=== PATIENT | female | born 1990 | race Caucasian/White ===

== ENCOUNTER 2017-01-23 00:18 | Emergency (ER) | payer MEDICAID ==
[~2017-01-23] VITALS: Ht 157.5 cm; Wt 45.4 kg
[~2017-01-23 00:18] MED LIST: ACHD5005 PO; ALBU8.5H4 IH; AMOX500C2 PO; BCP; BCP PO; CEFD300C3 PO; CEPH500C PO; CETI10TA17; CLIN300C3 PO; CLON0.5T60 PO; CLON1TAB3; CODE-54 PO; CPH250CIP PO; CYCL10TA45 PO; DCS100C PO; DICL500C PO; DIPH50CA33 PO; DOXY100C2 PO; ESCI20TA38; FAMO-119 PO; FRS325T PO; GUAI120L29 PO; HYDR-3714 PO; HYDR1CAP2 PO; Hydrocodone Bit/Acetaminophen PO; IBP600T1 PO; Ibuprofen PO; LD5O35 EXT; METH10TA12; METH10TA3 PO; METH20TA PO; METH5TAB4 PO; METR500T PO; MIRT30TA6 PO; NAPR-243 PO; NITR-65 PO; NITR100C3 PO; OCP; OMEP-10 PO; OMEP20TA2 PO; ONDA-42 PO; ONDA8TAB6 PO; ONDAN4ODT PO; OSLT75C PO; PHEN200T27 PO; PNV1CAPS13 PO; PRD20T PO; PRDM473B PO; PREN-115 PO; PREN1TAB4 PO; PRM25T PO; PROM12.59 PO; Simethicone PO; TRAM150C3 PO; TRAM50TA2 PO; TRM50T PO; hydroxyzine; lamictal; metoprolol; risperdal
--- OUTSIDE RECORDS SUMMARY | 2017-01-23 00:28 | XMS REPORT | Continuity of Care Document ---
Author Author [facility] Address Unknown Phone Unavailable Allergies Active Description Code Type Severity Reaction Onset Reported/Identified Relationship to Patient Clinical Status Yes Sulfa (Sulfonamide Antibiotics) [id number] Drug Allergy Unknown N/A 06/06/2008 Yes Sulfa (Sulfonamide Antibiotics) Drug Allergy N/A N/A 02/10/2014 Medications Problems Date Dx Coded Attending Type Code Diagnosis Diagnosed By 06/11/2010 Ot 569.3 06/11/2010 Ot 578.9 07/07/2010 Ot 455.0 07/07/2010 Ot 564.00 07/07/2010 Ot 569.3 08/31/2010 Ot 575.8 09/24/2010 Ot 923.10 09/24/2010 Ot 959.3 09/24/2010 Ot E000.8 09/24/2010 Ot E849.0 09/24/2010 Ot E888.8 10/15/2010 Ot 625.9 10/15/2010 Ot 648.93 12/19/2010 Ot 643.03 01/18/2011 Ot 640.93 02/08/2011 Ot 625.9 02/08/2011 Ot 646.83 02/18/2011 Ot 599.0 02/18/2011 Ot 646.63 03/05/2011 Ot 648.93 03/05/2011 Ot 789.00 04/08/2011 Ot 648.93 04/08/2011 Ot 959.19 04/08/2011 Ot E000.8 04/08/2011 Ot E849.6 04/08/2011 Ot E917.9 04/08/2011 Ot 648.73 04/08/2011 Ot 648.93 04/08/2011 Ot 724.2 04/08/2011 Ot 924.01 04/08/2011 Ot 959.6 04/08/2011 Ot E000.8 04/08/2011 Ot E849.6 04/08/2011 Ot E917.9 04/11/2011 Ot 844.9 04/11/2011 Ot 959.7 04/11/2011 Ot E000.8 04/11/2011 Ot E849.0 04/11/2011 Ot E927.0 04/21/2011 Ot 599.0 04/21/2011 Ot 646.63 05/07/2011 Ot 644.03 05/20/2011 Ot 644.03 06/08/2011 Ot 650 06/08/2011 Ot V27.0 07/22/2011 Ot 599.0 08/03/2011 Ot 841.9 08/03/2011 Ot 842.00 08/03/2011 Ot 923.10 08/03/2011 Ot 923.21 08/03/2011 Ot 959.3 08/03/2011 Ot E000.8 08/03/2011 Ot E849.0 08/03/2011 Ot E885.9 01/22/2012 Ot 487.1 01/22/2012 Ot 780.60 05/30/2012 Ot 923.11 05/30/2012 Ot 959.3 05/30/2012 Ot E000.8 05/30/2012 Ot E849.0 05/30/2012 Ot E888.9 08/13/2012 Ot 787.02 08/13/2012 Ot 789.00 08/18/2012 Ot 616.10 08/18/2012 Ot 620.2 08/18/2012 Ot 789.03 01/27/2013 Ot 784.0 HEADACHE 02/10/2013 Ot 466.0 ACUTE BRONCHITIS 02/10/2013 Ot 648.93 OTH CURR COND-ANTEPARTUM 02/10/2013 Ot 786.2 COUGH 03/02/2013 Ot 648.93 OTH CURR COND-ANTEPARTUM 03/02/2013 Ot 682.6 CELLULITIS OF LEG 03/02/2013 Ot 704.8 HAIR DISEASES NEC 03/03/2013 Ot 599.0 URIN TRACT INFECTION NOS 03/03/2013 Ot 646.63 INFECTION-ANTEPARTUM 03/03/2013 Ot 646.83 PREG COMPL NEC-ANTEPART 03/03/2013 Ot 682.6 CELLULITIS OF LEG 03/03/2013 Ot 704.8 HAIR DISEASES NEC 03/13/2013 Ot 355.0 SCIATIC NERVE LESION 03/13/2013 Ot 648.73 BONE DISORDER-ANTEPARTUM 03/13/2013 Ot 719.45 JOINT PAIN-PELVIS 03/13/2013 Ot 720.2 SACROILIITIS NEC 03/26/2013 PETE CHACKO DO Ot 784.0 HEADACHE 05/20/2013 MAVERICK MORELAND DO Ot 388.70 OTALGIA NOS 05/20/2013 MAVERICK MORELAND DO Ot 646.83 PREG COMPL NEC-ANTEPART 05/20/2013 OTILIA CANTU, PHI Amador Ot 382.9 OTITIS MEDIA NOS 05/20/2013 PHI BINGHAM MD Ot 388.70 OTALGIA NOS 05/20/2013 OTILIA CANTU, PHI Amador Ot 648.93 OTH CURR COND-ANTEPARTUM 06/15/2013 MAVERICK MORELAND DO Ot 644.03 THRT KATHY LABOR-ANTEPART 06/15/2013 MAVERICK MORELAND DO Ot 655.73 DECR MOVEMNT ANTEPARTUM CONDITION 06/15/2013 MAVERICK MORELAND DO Ot E000.8 OTHER EXTERNAL CAUSE STATUS 06/15/2013 MAVERICK MORELAND DO Ot E888.9 FALL NOS 06/28/2013 MAVERICK MORELAND DO Ot 644.03 THRT KATHY LABOR-ANTEPART 07/07/2013 LATA CANTU, VIRGIE Childers Ot 490 BRONCHITIS NOS 07/07/2013 VIRGIE GUIDO MD Ot 646.83 PREG COMPL NEC-ANTEPART 07/12/2013 TENNILLE MCFADDEN GRINDER OPERATOR EXTERNAL TOOL Ot 646.83 PREG COMPL NEC-ANTEPART 07/12/2013 TENNILLE MCFADDEN GRINDER OPERATOR EXTERNAL TOOL Ot 649.03 TOBACCO USE DISOR COMP PREG/CHILDBIRTH/P 07/12/2013 TENNILLE MCFADDEN GRINDER OPERATOR EXTERNAL TOOL Ot 787.01 NAUSEA WITH VOMITING 07/12/2013 TENNILLE MCFADDEN GRINDER OPERATOR EXTERNAL TOOL Ot 787.91 DIARRHEA 07/21/2013 MAVERICK MORELAND DO Ot 644.03 THRT KATHY LABOR-ANTEPART 08/16/2013 MAVERICK MORELAND DO Ot 623.5 NONINFECT VAG LEUKORRHEA 08/16/2013 MAVERICK MORELAND DO Ot 654.73 ABNORM VAGINA-ANTEPARTUM 08/19/2013 MAVERICK MORELAND DO Ot 648.73 BONE DISORDER-ANTEPARTUM 08/19/2013 MAVERICK MORELAND DO Ot 724.2 LUMBAGO 08/30/2013 MAVERICK MORELAND DO Ot 644.13 THREAT LABOR NEC-ANTEPAR 09/03/2013 MAVERICK MORELAND DO Ot 287.5 THROMBOCYTOPENIA NOS 09/03/2013 MAVERICK MORELAND DO Ot 649.01 TOBACCO USE DISORDER COMP PREG/CHILDBIRT 09/03/2013 MAVERICK MORELAND DO Ot 649.31 COAGULATION DEFECTS COMP PREG/CHILDBIRTH 09/03/2013 MAVERICK MORELAND DO Ot V04.81 ND FOR PROPHYLACTIC VACCIN AND INOCULATI 09/03/2013 MAVERICK MORELAND DO Ot V27.0 DELIVER-SINGLE LIVEBORN 12/09/2013 RICCO PETE K Ot 842.00 12/09/2013 RICCO PETE K Ot 923.20 12/09/2013 RICCO PETE Danie Ot 959.3 12/09/2013 RICCO PETE Danie Ot E000.8 12/09/2013 RICCO PETE Danie Ot E849.0 12/09/2013 RICCO PETE Helton Ot E885.9 02/10/2014 DEREK HERRERA MD 309.81 AN PTSD 02/10/2014 DEREK HERRERA MD 314.01 ADHD COMBINED 02/10/2014 ARMANDO MEJIA APRNA J 309.81 AN PTSD 02/10/2014 ARMANDO MEJIA APRNA J 314.01 ADHD COMBINED 02/10/2014 ARMANDO MEJIA APRNA J 309.81 AN PTSD 02/10/2014 ARMANDO MEJIA APRNA J 314.01 ADHD COMBINED 02/10/2014 ROBERTO FLOREZ AZALIA J 309.81 AN PTSD 02/10/2014 ROBERTO FLOREZ AZALIA J 314.01 ADHD COMBINED 02/10/2014 ARMANDO MEJIA APRNA J 309.81 AN PTSD 02/10/2014 ARMANDO MEJIA APRNA J 314.01 ADHD COMBINED 02/10/2014 ROBERTO FLOREZ AZALIA J 309.81 AN PTSD 02/10/2014 ROBERTO FLOREZ AZALIA J 314.01 ADHD COMBINED 02/10/2014 CHRISTIANO MEJIA APRNINDA J 309.81 AN PTSD 02/10/2014 ROBERTO GRINDER OPERATOR EXTERNAL TOOL, AZALIA J 314.01 ADHD COMBINED 02/10/2014 AZALIA MEJIA APRN 309.81 AN PTSD 02/10/2014 AZALIA MEJIA APRN 314.01 ADHD COMBINED 02/10/2014 ARIANE JENKINS PHD 309.81 AN PTSD 02/10/2014 ARIANE JENKINS PHD 314.01 ADHD COMBINED 02/10/2014 AZALIA MEJIA APRN 309.81 AN PTSD 02/10/2014 AZALIA MEJIA APRN 314.01 ADHD COMBINED 02/10/2014 ARIANE JENKINS PHD 309.81 AN PTSD 02/10/2014 ARIANE JENKINS PHD 314.01 ADHD COMBINED 02/16/2014 TENNILLE MCFADDEN APRN Ot 490 02/16/2014 TENNILLE MCFADDEN APRN Ot 786.2 03/20/2014 RICCOMARIA ALEJANDRA Lepe DOA K Ot 381.4 03/20/2014 RICCO MARIA ALEJANDRAA K Ot 462 03/20/2014 RICCO MARIA ALEJANDRAA K Ot 465.9 03/20/2014 MARIA ALEJANDRA CHACKO DOA K Ot 599.0 06/24/2014 DENVER HASTINGS Ot 466.0 06/24/2014 DENVER HASTINGS Ot 648.93 06/24/2014 DENVER HASTINGS Ot 786.2 08/10/2014 AZALIA MEJIA APRN 381.01 ACUTE SEROUS OTITIS MEDIA 08/10/2014 AZALIA MEJIA APRN 381.01 ACUTE SEROUS OTITIS MEDIA 08/10/2014 AZALIA MEJIA APRN 381.01 ACUTE SEROUS OTITIS MEDIA 08/10/2014 ARIANE JENKINS PHD 381.01 ACUTE SEROUS OTITIS MEDIA 08/10/2014 AZALIA MEJIA APRN 381.01 ACUTE SEROUS OTITIS MEDIA 08/10/2014 ARIANE JENKINS PHD 381.01 ACUTE SEROUS OTITIS MEDIA 10/10/2014 Ot 789.00 10/10/2014 Ot 789.00 10/10/2014 Ot 575.8 10/10/2014 Ot V72.63 10/10/2014 Ot V72.81 10/11/2014 MAVERICK MORELAND DO Ot 644.03 10/16/2014 MAVERICK MORELAND DO Ot 661.31 10/16/2014 MAVERICK MORELAND DO Ot V04.81 10/16/2014 MAVERICK MORELAND DO Ot V06.1 10/16/2014 MAVERICK MORELAND DO Ot V06.4 10/16/2014 MAVERICK MORELAND DO Ot V27.0 12/09/2014 Ot 789.00 12/09/2014 Ot 789.00 12/09/2014 Ot 575.8 12/09/2014 Ot V72.63 12/09/2014 Ot V72.81 12/09/2014 DENVER HASTINGS Ot 723.1 CERVICALGIA 12/22/2014 MAVERICK MORELAND DO Ot 618.4 UTERVAGINAL PROLAPSE NOS 12/22/2014 MAVERICK MORELAND DO Ot 618.89 OTHER SPECIFIED GENITAL PROLAPSE 12/22/2014 MAVERICK MORELAND DO Ot 620.8 NONINFL DIS OVA/ADNX NEC 12/22/2014 MAVERICK MORELAND DO Ot 998.11 HEMOR COMPLIC A PROCEDURE 12/30/2014 MAVERICK MORELAND DO Ot 618.01 12/30/2014 MAVERICK MORELAND DO Ot 618.89 12/30/2014 MAVERICK MORELAND DO Ot V72.63 12/30/2014 MAVERICK MORELAND DO Ot V74.8 01/27/2015 AZALIA MEJIA APRN 308.3 AN ACUTE STRESS DISORDER 01/27/2015 ARIANE JENKINS PHD 308.3 AN ACUTE STRESS DISORDER 01/27/2015 AZALIA MEJIA APRN 308.3 AN ACUTE STRESS DISORDER 01/27/2015 ARIANE JENKINS PHD 308.3 AN ACUTE STRESS DISORDER 01/27/2015 Ot 338.28 OTHER CHRONIC POSTOPERATIVE PAIN 01/27/2015 Ot 623.8 NONINFLAM DIS VAGINA NEC 02/09/2015 AZALIA MEJIA APRN 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 02/09/2015 AZALIA MEJIA APRN 300.02 AN GEN ANXIETY 02/09/2015 ARIANE JENKINS PHD 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 02/09/2015 ARIANE JENKINS PHD 300.02 AN GEN ANXIETY 02/09/2015 AZALIA MEJIA APRN 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 02/09/2015 AZALIA MEJIA APRN 300.02 AN GEN ANXIETY 02/09/2015 ALICE PHD, ARIANE Childers 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 02/09/2015 ALICE WALKER, ARIANE Childers 300.02 AN GEN ANXIETY 06/04/2015 MORELAND DO, MAVERICK C Ot 618.01 06/04/2015 MORELAND DO, MAVERICK C Ot 618.89 06/04/2015 MORELAND DO, MAVERICK C Ot V72.63 06/04/2015 MORELAND DO, MAVERICK C Ot V74.8 06/04/2015 PETE CHACKO DO Ot 682.5 CELLULITIS OF BUTTOCK 06/04/2015 PETE CHACKO DO Ot V12.04 PERSONAL HIST OF METHICILLIN RESISTANT S 06/08/2015 FORTINO CANTU, JACOBO Helton Ot 041.12 METHICILLIN RESISTANT STAPHYLOCOCCUS AUR 06/08/2015 FORTINO CANTU, JACOBO Helton Ot 682.5 CELLULITIS OF BUTTOCK 06/10/2015 FORTINO CANTU, JACOBO Helton Ot 041.12 06/10/2015 FORTINO CANTU, JACOBO Helton Ot 682.5 06/23/2015 JACOBO FREITAS MD Ot 041.12 06/23/2015 JACOBO FREITAS MD Ot 682.5 11/11/2015 MORELAND DO MAVERICK C Ot 618.01 11/11/2015 MORELAND DO, MAVERICK C Ot 618.89 11/11/2015 MORELAND DO MAVERICK C Ot V72.63 11/11/2015 MORELAND DO, MAVERICK C Ot V74.8 11/11/2015 TENNILLE MCFADDEN GRINDER OPERATOR EXTERNAL TOOL Ot S99.922A UNSPECIFIED INJURY OF LEFT FOOT, INITIAL 11/11/2015 TENNILLE MCFADDEN GRINDER OPERATOR EXTERNAL TOOL Ot Z53.21 PROC/TRTMT NOT CRD OUT D/T PT LV BEF SEE 11/11/2015 MORELAND DO, MAVERICK C Ot 618.01 11/11/2015 MORELAND DO, MAVERICK C Ot 618.89 11/11/2015 MORELAND DO, MAVERICK C Ot V72.63 11/11/2015 MORELAND DO, MAVERICK C Ot V74.8 06/28/2016 MORELAND DO, MAVERICK C Ot 618.01 CYSTOCELE, MIDLINE 06/28/2016 MAVERICK MORELAND DO Ot 618.89 OTHER SPECIFIED GENITAL PROLAPSE 06/28/2016 MAVERICK MORELAND DO Ot V72.63 PRE-PROCEDURAL LABORATORY EXAMINATION 06/28/2016 MAVERICK MORELAND DO Ot V74.8 SCREEN-BACTERIAL DIS NEC 06/28/2016 ADAN HEAD MD, Ot O92.79 OTHER DISORDERS OF 06/28/2016 ADAN HEAD MD Ot R10.84 GENERALIZED ABDOMINAL PAIN 06/28/2016 ADAN HEAD MD, Ot Z79.899 OTHER INSULATION POWER UNIT TENDER (CURRENT) DRUG THERAPY 06/28/2016 ADAN HEAD MD, Ot Z90.710 ACQUIRED ABSENCE OF BOTH CERVIX AND UTER 06/30/2016 ADAN HEAD MD Ot O92.79 OTHER DISORDERS OF 06/30/2016 ADAN HEAD MD, Ot R10.84 GENERALIZED ABDOMINAL PAIN 06/30/2016 ADAN HEAD MD, Ot Z79.899 OTHER INSULATION POWER UNIT TENDER (CURRENT) DRUG THERAPY 06/30/2016 ADAN HEAD MD Ot Z90.710 ACQUIRED ABSENCE OF BOTH CERVIX AND UTER 07/19/2016 ADAN HEAD MD Ot O92.79 OTHER DISORDERS OF 07/19/2016 ADAN HEAD MD Ot R10.84 GENERALIZED ABDOMINAL PAIN 07/19/2016 ADAN HEAD MD Ot Z79.899 OTHER INSULATION POWER UNIT TENDER (CURRENT) DRUG THERAPY 07/19/2016 ADAN HEAD MD Ot Z90.710 ACQUIRED ABSENCE OF BOTH CERVIX AND UTER Procedures Code Description Performed By Performed On 73.4 MEDICAL INDUCTION LABOR 09/01/2013 73.59 MANUAL ASSIST DELIV NEC 09/01/2013 43411 PSYTX PT&/FAMILY 45 MINUTES 03/09/2015 43862 PSYTX PT&/FAMILY 45 MINUTES 03/23/2015 Results Test Result Range Complete urinalysis with reflex to culture - 06/28/16 01:14 Urine color determination YELLOW NRG Urine clarity determination CLEAR NRG Urine pH measurement by test strip 8 5- 9 Specific gravity of urine by test strip 1.015 1.016-1.022 Urine protein assay by test strip, semi-quantitative NEGATIVE NEGATIVE Urine glucose detection by automated test strip NEGATIVE NEGATIVE Erythrocytes detection in urine sediment by light microscopy NEGATIVE NEGATIVE Urine ketones detection by automated test strip NEGATIVE NEGATIVE Urine nitrite detection by test strip NEGATIVE NEGATIVE Urine total bilirubin detection by test strip NEGATIVE NEGATIVE Urine urobilinogen measurement by automated test strip (mass/volume) NORMAL NORMAL Urine leukocyte esterase detection by dipstick 1+ NEGATIVE Automated urine sediment erythrocyte count by microscopy (number/high power field) NONE NRG Automated urine sediment leukocyte count by microscopy (number/high power field ) [HPF] NRG Bacteria detection in urine sediment by light microscopy TRACE NRG Squamous epithelial cells detection in urine sediment by light microscopy 2-5 NRG Crystals detection in urine sediment by light microscopy NONE NRG Casts detection in urine sediment by light microscopy NONE NRG Mucus detection in urine sediment by light microscopy MODERATE NRG Complete urinalysis with reflex to culture NO NRG Complete blood count (CBC) with automated white blood cell (WBC) differential - 06/28/16 01:19 Blood leukocytes automated count (number/volume) 10.5 10*3/ uL 4.3-11.0 Blood erythrocytes automated count (number/volume) 4.27 10*6 /uL 4.35-5.85 Venous blood hemoglobin measurement (mass/volume) 12.8 g/dL 11.5-16.0 Blood hematocrit (volume fraction) 39 % 35-52 Automated erythrocyte mean corpuscular volume 91 [foz_us] 80-99 Automated erythrocyte mean corpuscular hemoglobin (mass per erythrocyte) 30 pg 25-34 Automated erythrocyte mean corpuscular hemoglobin concentration measurement ( mass/volume) 33 g/dL 32-36 Automated erythrocyte distribution width ratio 12.0 % 10.0-14.5 Automated blood platelet count (count/volume) 216 10*3/uL 130-400 Automated blood platelet mean volume measurement 11.2 [foz_ us] 7.4-10.4 Automated blood neutrophils/100 leukocytes 59 % 42-75 Automated blood lymphocytes/100 leukocytes 31 % 12-44 Blood monocytes/100 leukocytes 6 % 0-12 Automated blood eosinophils/100 leukocytes 4 % 0-10 Automated blood basophils/100 leukocytes 0 % 0-10 Blood neutrophils automated count (number/volume) 6.2 10*3 1.8-7.8 Blood lymphocytes automated count (number/volume) 3.3 10*3 1.0-4.0 Blood monocytes automated count (number/volume) 0.7 10*3 0.0-1.0 Automated eosinophil count 0.4 10*3/uL 0.0-0.3 Automated blood basophil count (count/volume) 0.0 10*3/uL 0.0-0.1 Comprehensive metabolic panel - 06/28/16 01:19 Serum or plasma sodium measurement (moles/volume) 140 mmol/ L 135-145 Serum or plasma potassium measurement (moles/volume) 3.9 mmol/L 3.6-5.0 Serum or plasma chloride measurement (moles/volume) 106 mmol /L 98-107 Carbon dioxide 26 mmol/L 21-32 Serum or plasma anion gap determination (moles/volume) 8 mmol/L 5-14 Serum or plasma urea nitrogen measurement (mass/volume) 17 mg/dL 7-18 Serum or plasma creatinine measurement (mass/volume) 0.74 mg /dL 0.60-1.30 Serum or plasma urea nitrogen/creatinine mass ratio 23 NRG Serum or plasma creatinine measurement with calculation of estimated glomerular filtration rate > NRG Serum or plasma glucose measurement (mass/volume) 92 mg/dL 70-105 Serum or plasma calcium measurement (mass/volume) 9.7 mg/dL 8.5-10.1 Serum or plasma total bilirubin measurement (mass/volume) 0.2 mg/dL 0.1-1.0 Serum or plasma alkaline phosphatase measurement (enzymatic activity/volume) 58 U/L 40-136 Serum or plasma aspartate aminotransferase measurement (enzymatic activity/ volume) 23 U/L 5-34 Serum or plasma alanine aminotransferase measurement (enzymatic activity/volume ) 13 U/L 0-55 Serum or plasma protein measurement (mass/volume) 7.3 g/dL 6.4-8.2 Serum or plasma albumin measurement (mass/volume) 4.8 g/dL 3.2-4.5 Encounters ACCT No. Visit Date/Time Discharge Status Pt. Type Provider Facility Loc./Unit Complaint [id number] 03/23/2015 08:50:00 03/23/2015 23: 59:[address] [facility] Outpatient ARIANE JENKINS PHD [id number] 03/09/2015 08:47:00 03/09/2015 23: 59:59 [facility] Outpatient ARIANE JENKINS PHD [id number] 03/03/2015 08:55:00 03/03/2015 23: 59:59 [facility] Outpatient AZALIA MEJIA APRN [id number] 01/27/2015 13:56:00 01/27/2015 23: 59:59 [facility] Outpatient AZALIA MEJIA APRN [id number] 11/04/2014 08:53:00 11/04/2014 23: 59:59 [facility] Outpatient AZALIA MEJIA APRN [id number] 11/04/2014 08:53:00 11/04/2014 23: 59:59 [facility] Outpatient AZALIA MEJIA APRN [id number] 05/26/2014 11:34:00 05/26/2014 23: 59:59 [facility] Outpatient AZALIA MEJIA APRN [id number] 04/22/2014 12:48:00 04/22/2014 23: 59:59 [facility] Outpatient AZALIA MEJIA APRN [id number] 03/11/2014 12:49:00 03/11/2014 23: 59:59 [facility] Outpatient AZALIA MEJIA APRN [id number] 02/10/2014 13:48:00 02/10/2014 23: 59:59 [facility] Outpatient DEREK HERRERA MD [id number] 02/10/2014 13:48:00 02/10/2014 23: 59:59 [facility] Outpatient AZALIA MEJIA APRN
[2017-01-23] MEDS ORDERED: METH20TA34 (00:30)
[2017-01-23] MEDS ORDERED: CLON0.5T3 (00:30)
[2017-01-23] MEDS ORDERED: HYDR-3781 (00:30)
[2017-01-23] MEDS ORDERED: FLUC150T2 (00:30)
[2017-01-23 00:39] LABS: BILIRUBIN,URINE NEGATIVE (NEGATIVE); KETONES,URINE NEGATIVE (NEGATIVE); LEUKOCYTE ESTERASE ,URINE 3+ (NEGATIVE); NITRITE,URINE NEGATIVE (NEGATIVE); PH,URINE 7 (5-9); PROTEIN,URINE 3+ (NEGATIVE); UROBILINOGEN,URINE NORMAL (NORMAL)
--- NOTE | 2017-01-23 00:51 | ED GU-Female ---
General Chief Complaint: -Female Stated Complaint: VAGINAL PROBLEMS/PAIN Nursing Triage Note: c/o pelvic pain for a week. patient reports having to push things back inside of her for the past few days, patient reports being evaluated by [facility] urgent care and was diagnosed with a yeast infection Nursing Sepsis Screen: No Definite Risk Source: patient History of Present Illness Time seen by provider: 00:30 Initial Comments C/O SEVERE PAIN IN VAGINAL AREA X 1 WEEK STATES "THERE'S STUFF COMING OUT MY CROTCH THAT I HAVE TO SHOVE BACK IN" FOR THE PAST FEW DAYS--DESCRIBES PROLAPSE C/O SEVERE URINARY URGENCY, FREQUENCY, INCONTINENCE, BURNING/PAIN ON URINATION, SMALL AMOUNTS X 1 WEEK--STATES IT FEELS LIKE SHE HAS A UTI C/O DIFFICULTY HAVING BM'S THIS WEEK--NO IMPROVEMENT WITH STOOL SOFTENERS--HAD A SMALL BM YESTERDAY C/O NAUSEA WHEN PAIN IS BAD C/O MILD LOWER ABDOMINAL PAIN AND LOWER BACK PAIN NO VAGINAL DISCHARGE OR BLEEDING NO FEVER PAIN IS WORSE WITH ANY MOVEMENTS PT HAD A HYSTERECTOMY FOR PROLAPSE, ALONG WITH CYSTOCOELE AND RECTOCOELE REPAIR BY DR. MORELAND PT HAS APPOINTMENT WITH DR. MORELAND TOMORROW AT 2:00 PM FOR THIS PROBLEM WAS SEEN AT [facility] YESTERDAY FOR THIS PROBLEM AND WAS TOLD SHE DID NOT HAVE A UTI, BUT PELVIC EXAM WAS DONE AND CULTURES WERE OBTAINED AND TOLD SHE HAD YEAST INFECTION AND GIVEN RX FOR DIFLUCAN WAS GIVEN Allergies and Home Medications Allergies Coded Allergies: Sulfa (Sulfonamide Antibiotics) (Verified Allergy, Unknown, 06/06/08) Home Medications Clonazepam 0.5 Mg Tablet #60 (Reported) Fluconazole 150 Mg Tablet #2 (Reported) Hydroxyzine Pamoate 25 Mg Capsule #60 (Reported) Levofloxacin 500 Mg Tablet #10 500 MG PO DAILY Prescribed by: PETE CHACKO on 01/23/17111 Methylphenidate HCl 20 Mg Tablet #70 (Reported) Phenazopyridine HCl 200 Mg Tablet #15 1 TAB PO TID Prescribed by: PETE CHACKO on 01/23/17111 Tramadol HCl 50 Mg Tablet #20 50 MG PO Q4H Prescribed by: PETE CHACKO on 01/23/17111 Constitutional: no symptoms reported Respiratory: no symptoms reported Cardiovascular: no symptoms reported Gastrointestinal: see HPI constipation nausea vomiting Genitourinary: see HPI frequency flank pain incontinence pain urgency : No (HYST) Musculoskeletal: see HPI back pain Skin: no symptoms reported Psychiatric/Neurological: No Symptoms Reported Endocrine: No Symptoms Reported Hematologic/Lymphatic: No Symptoms Reported Past Qjmetnl-Yicbyl-Pscfjw Hx Patient Social History Alcohol Use: Occasionally Uses Recreational Drug Use: No Smoking Status: Current Everyday Smoker Type Used: Cigarettes 2nd Hand Smoke Exposure: Yes Recent Foreign Travel: No Contact w/Someone Who Travel: No Recent Infectious Disease Expo: No Recent Hopitalizations: No Immunizations Up To Date Tetanus Booster (TDap): Less than 5yrs PED Vaccines UTD: No Date of Influenza Vaccine: Oct 14, 2014 Seasonal Allergies Seasonal Allergies: No Surgeries HX Surgeries: Yes (HYST/OVARIES INTACT; RECTOCELE, ABSCESS I&D'S) Surgeries: Gallbladder, Hysterectomy, Rectal Respiratory Hx Respiratory Disorders: Yes Respiratory Disorders: Pneumonia Cardiovascular Hx Cardiac Disorders: No Neurological Hx Neurological Disorders: No Reproductive System Hx Reproductive Disorders: No Sexually Transmitted Disease: No 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 Genitourinary Hx Genitourinary Disorders: Yes Genitourinary Disorders: Bladder Infection Gastrointestinal Hx Gastrointestinal Disorders: No Musculoskeletal Hx Musculoskeletal Disorders: Yes Musculoskeletal Disorders: Fractures Endocrine Hx Endocrine Disorders: No HEENT HX ENT Disorders: No Cancer Hx Cancer: No Psychosocial Hx Psychiatric Problems: Yes Behavioral Health Disorders: ADD/ADHD, Depression Integumentary HX Skin/Integumentary Disorder: Yes (MRSA, ABSCESSES) Blood Transfusions Hx Blood Disorders: No Adverse Reaction to a Blood Tr: No Family Medical History Family Medial History: Abdominal aortic aneurysm Grandfather, Onset:60 years & older Arthritis 19 MOTHER, Onset:30's - 40 Seizure disorder 19 MOTHER, Onset:Childhood No Family History of: AIDS Noel's disease Alcoholism Alzheimer's disease Aphasia Asthma Cancer of mouth Cardiovascular disease Cataracts Colon cancer Completed stroke Congenital disease Congenital heart disease Coronary thrombosis Cystic fibrosis Deafness or hearing loss Dementia Diabetes mellitus Drug abuse Dysphasia Fibrocystic disease of breast Gastroenteritis Glaucoma Headache disorder Hypercholesterolemia Hypertension Infertility Kidney disease Myocardial infarction Neoplasm Not obtainable due to adoption Osteoporosis Parkinson's disease Prostate cancer Psychosocial problem Respiratory disorder Severe allergy Thyroid disease Tuberculosis Visual disorder Physical Exam Vital Signs Vital Sign - Last 12Hours 01/23/17 00:26 Temp 98.2 Pulse 102 Resp 18 B/P 117/84 Pulse Ox 95 O2 Delivery Room Air Capillary Refill : Less Than 3 Seconds General Appearance: other (PT LEANING FORWARD ON BED WITH KNEES TO CHEST) thin Neck: normal inspection Cardiovascular: regular rate, rhythm no murmur Respiratory: normal breath sounds no respiratory distress no accessory muscle use Gastrointestinal: soft no organomegaly no pulsatile massNo distended, No guarding, No rebound, tenderness (SUPRAPUBIC TENDERNESS)No hernia, No mass Pelvic: normal external examNo vaginal bleeding, other (NO PROLAPSE ON EXAM, EVEN WITH STRAINING. ) Back: CVA tenderness (R) CVA tenderness (L) Extremities: normal inspection Neurologic/Psychiatric: no motor/sensory deficits alert normal mood/affect oriented x 3 Skin: normal color warm/dry tattoos/piercings (TATTOOS) Progress/Results/Core Measures Results/Orders Lab Results Laboratory Tests Test 01/23/17 00:39 Range/Units Urine Bacteria MODERATE H /HPF Urine Bilirubin NEGATIVE NEGATIVE Urine Casts NONE /LPF Urine Clarity VERY CLOUDY H Urine Color YELLOW Urine Crystals NONE /LPF Urine Culture Indicated YES Urine Glucose (UA) NEGATIVE NEGATIVE Urine Ketones NEGATIVE NEGATIVE Urine Leukocyte Esterase 3+ H NEGATIVE Urine Mucus NEGATIVE /LPF Urine Nitrite NEGATIVE NEGATIVE Urine Protein 3+ H NEGATIVE Urine RBC 10-25 H /HPF Urine RBC (Auto) 3+ H NEGATIVE Urine Specific [place] 1.015 L 1.016-1.022 Urine Urobilinogen NORMAL NORMAL MG/DL Urine WBC 50-100 H /HPF Urine pH 7 5-9 My Orders Orders-PETE CHACKO DO Ua Culture If Indicated (01/23/17 00:29) Urine Culture (01/23/17 00:39) Phenazopyridine Tablet (Pyridium Tablet) (01/23/17 01:15) Levofloxacin Tablet (Levaquin Tablet) (01/23/17 01:15) Rx-Tramadol Hcl (Rx-Ultram) (01/23/17 01:11) Vital Signs/I&O Vital Sign - Last 12Hours 01/23/17 00:26 Temp 98.2 Pulse 102 Resp 18 B/P 117/84 Pulse Ox 95 O2 Delivery Room Air Blood Pressure Mean: 95 Departure Impression Impression: Primary Impression: Urinary tract infection Additional Impression: POSSIBLE CYSTOCOELE/RECTOCOELE Disposition: 01 HOME, SELF-CARE Condition: Stable Departure-Patient Inst. Referrals: [facility] (PCP/Family) Primary Care Physician Patient Instructions: Cystocele and Rectocele (DC), Urinary Tract Infection, Adult (DC) Add. Discharge Instructions: LOTS OF CLEAR LIQUIDS TYLENOL AND MOTRIN NEEDED FOR PAIN KEEP YOUR APPOINTMENT WITH DR. MORELAND TOMORROW SCHEDULED All discharge instructions reviewed with patient and/or family. Voiced understanding. Scripts Tramadol HCl (Ultram)50 Mg [id number] Mg PO Q4H #20 TAB Prov:PETE CHACKO DO 01/23/17 Phenazopyridine HCl (Pyridium)200 Mg Tablet1 Tab PO TID BLADDER DISCOMFORT #15 TAB Prov:PETE CHACKO DO 01/23/17 Levofloxacin (Levaquin)500 Mg Nopude382 Mg PO DAILY INFECTION #10 TAB Prov:PETE CHACKO DO 01/23/17 PETE CHACKO DO Jan 23, 2017 00:51
[2017-01-23 00:52] LABS: WBC,URINE 50-100 /HPF
[2017-01-23] MEDS ORDERED: RX-TRAMADOL 50 MG (ULTRAM) TAB PPK#4 PO STA (01:11)
[2017-01-23] MEDS ORDERED: TRAM-42 PO (01:12)
[2017-01-23] MEDS ORDERED: LEVO500T2 PO (01:12)
[2017-01-23] MEDS ORDERED: PHEN-640 PO (01:12)
[2017-01-23] MEDS ORDERED: PHENAZOPYRIDINE 100 MG (PYRIDIUM) TABLET PO ONE (01:15)
[2017-01-23] MEDS ORDERED: LEVOFLOXACIN 500 MG TAB (LEVAQUIN) PO ONE (01:15)
[2017-01-23] MEDS ORDERED: RX-TRAMADOL 50 MG (ULTRAM) TAB PPK#4 PO ONE (01:17)
[2017-01-23 01:25] VITALS: BP 117/84
[2017-02-05] MEDS ORDERED: HYDR-3812 PO (17:23)
[2017-02-05] MEDS ORDERED: IBUP-1773 PO (17:23)
== END 2017-01-23 01:26 | disposition home or self-care (01) ==
LOC: EDUNIT# 00:18 → ER 00:21
DX: N39.0 Urinary tract infection, site not specified (principal); F17.210 Nicotine dependence, cigarettes, uncomplicated; Z90.710 Acquired absence of both cervix and uterus
CPT/HCPCS: 81000; 87077; 87088; 87186; 99283

== ENCOUNTER → 2017-01-28 | Outpatient (CLI) | payer MEDICAID ==
[~2017-01-28] MED LIST changes: +CLON0.5T3; +CLON0.5T3 PO; +FLUC150T2; +HYDR-3781; +HYDR-3812 PO; +IBUP-1773 PO; +LEVO500T2 PO; +METH20TA34; +PHEN-640 PO; +TRAM-42 PO
--- OUTSIDE RECORDS SUMMARY | 2017-01-28 15:08 | XMS REPORT | Continuity of Care Document ---
Author Author [facility] Address Unknown Phone Unavailable Allergies Active Description Code Type Severity Reaction Onset Reported/Identified Relationship to Patient Clinical Status Yes Sulfa (Sulfonamide Antibiotics) [id number] Drug Allergy Unknown N/A 06/06/2008 Yes Sulfa [...] Amador Ot 648.93 OTH CURR COND-ANTEPARTUM 06/15/2013 MAVERIKC MORELAND DO Ot 644.03 THRT KATYH LABOR-ANTEPART 06/15/2013 MAVERICK MORELAND DO Ot 655.73 DECR MOVEMNT ANTEPARTUM CONDITION 06/15/2013 MAVERICK MORELAND DO Ot E000.8 OTHER EXTERNAL CAUSE STATUS 06/15/2013 MAVERICK MORELAND DO Ot E888.9 FALL NOS 06/28/2013 MAVERICK MORELAND DO Ot 644.03 THRT KATHY LABOR-ANTEPART 07/07/2013 LATA CANTU, VIRGIE Childers Ot 490 BRONCHITIS NOS 07/07/2013 VIRGIE GUIDO MD Ot 646.83 PREG COMPL NEC-ANTEPART 07/12/2013 TENNILLE MCFADDEN GUEST SERVICES LEAD Ot 646.83 PREG COMPL NEC-ANTEPART 07/12/2013 TENNILLE MCFADDEN GUEST SERVICES LEAD Ot 649.03 TOBACCO USE DISOR COMP PREG/CHILDBIRTH/P 07/12/2013 TENNILLE MCFADDEN GUEST SERVICES LEAD Ot 787.01 NAUSEA WITH VOMITING 07/12/2013 TENNILLE MCFADDEN GUEST SERVICES LEAD Ot 787.91 DIARRHEA 07/21/2013 MAVERICK MORELAND DO [...] APRNINDA J 309.81 AN PTSD 02/10/2014 ROBERTO GUEST SERVICES LEAD, AZALIA J 314.01 ADHD COMBINED 02/10/2014 AZALIA [...] MAVERICK MORELAND DO Ot V74.8 01/27/2015 AZALIA MJEIA APRN 308.3 AN ACUTE STRESS DISORDER 01/27/2015 [...] MAVERICK C Ot V74.8 11/11/2015 TENNILLE MCFADDEN GUEST SERVICES LEAD Ot S99.922A UNSPECIFIED INJURY OF LEFT FOOT, INITIAL 11/11/2015 TENNILLE MCFADDEN GUEST SERVICES LEAD Ot Z53.21 PROC/TRTMT NOT CRD OUT D/T PT LV BEF SEE 11/11/2015 MORELAND DO, MAVERIKC C Ot 618.01 11/11/2015 MORELAND DO, MAVERICK [...] V74.8 SCREEN-BACTERIAL DIS NEC 06/28/2016 ADAN HEAD MD Ot O92.79 OTHER DISORDERS OF 06/28/2016 ADAN HEAD MD Ot R10.84 GENERALIZED ABDOMINAL PAIN 06/28/2016 ADAN HEAD MD Ot Z79.899 OTHER SUPERVISOR SHUTTLE FITTING (CURRENT) DRUG THERAPY 06/28/2016 ADAN HEAD MD Ot Z90.710 ACQUIRED ABSENCE OF BOTH CERVIX AND UTER 06/30/2016 ADAN HEAD MD Ot O92.79 OTHER DISORDERS OF 06/30/2016 ADAN HEAD MD Ot R10.84 GENERALIZED ABDOMINAL PAIN 06/30/2016 ADAN HEAD MD Ot Z79.899 OTHER SUPERVISOR SHUTTLE FITTING (CURRENT) DRUG THERAPY 06/30/2016 ADAN HEAD MD Ot Z90.710 ACQUIRED ABSENCE OF BOTH CERVIX AND UTER 07/19/2016 ADAN HEAD MD Ot O92.79 OTHER DISORDERS OF 07/19/2016 ADAN HEAD MD Ot R10.84 GENERALIZED ABDOMINAL PAIN 07/19/2016 ADAN HEAD MD Ot Z79.899 OTHER SUPERVISOR SHUTTLE FITTING (CURRENT) DRUG THERAPY 07/19/2016 ADAN HEAD MD Ot Z90.710 ACQUIRED ABSENCE OF BOTH CERVIX AND UTER 01/23/2017 MAVERICK MORELAND DO Ot 618.01 CYSTOCELE, MIDLINE 01/23/2017 MAVERICK MORELAND DO Ot 618.89 OTHER SPECIFIED GENITAL PROLAPSE 01/23/2017 MAVERICK MORELAND DO Ot V72.63 PRE-PROCEDURAL LABORATORY EXAMINATION 01/23/2017 MAVERICK MORELAND DO Ot V74.8 SCREEN-BACTERIAL DIS NEC 01/24/2017 PETE CHACKO DO Ot F17.210 NICOTINE DEPENDENCE, CIGARETTES, UNCOMPL 01/24/2017 PETE CHACKO DO Ot N39.0 URINARY TRACT INFECTION, SITE NOT SPECIF 01/24/2017 PETE CHACKO DO Ot R30.0 DYSURIA 01/24/2017 PETE CHACKO DO Ot Z90.710 ACQUIRED ABSENCE OF BOTH CERVIX AND UTER Procedures Code Description Performed By Performed On 73.4 MEDICAL INDUCTION LABOR 09/01/2013 73.59 MANUAL ASSIST DELIV NEC 09/01/2013 58472 PSYTX PT&/FAMILY 45 MINUTES 03/09/2015 83592 PSYTX PT&/FAMILY 45 MINUTES 03/23/2015 Results Test [...] plasma albumin measurement (mass/volume) 4.8 g/dL 3.2-4.5 Complete urinalysis with reflex to culture - 01/23/17 00:39 Urine color determination YELLOW NRG Urine clarity determination VERY CLOUDY NRG Urine pH measurement by test strip 7 5- 9 Specific gravity of urine by test strip 1.015 1.016-1.022 Urine protein assay by test strip, semi-quantitative 3+ NEGATIVE Urine glucose detection by automated test strip NEGATIVE NEGATIVE Erythrocytes detection in urine sediment by light microscopy 3+ NEGATIVE Urine ketones detection by automated test strip NEGATIVE NEGATIVE Urine nitrite detection by test strip NEGATIVE NEGATIVE Urine total bilirubin detection by test strip NEGATIVE NEGATIVE Urine urobilinogen measurement by automated test strip (mass/volume) NORMAL NORMAL Urine leukocyte esterase detection by dipstick 3+ NEGATIVE Automated urine sediment erythrocyte count by microscopy (number/high power field) [HPF] NRG Automated urine sediment leukocyte count by microscopy (number/high power field ) [HPF] NRG Bacteria detection in urine sediment by light microscopy MODERATE NRG Crystals detection in urine sediment by light microscopy NONE NRG Casts detection in urine sediment by light microscopy NONE NRG Mucus detection in urine sediment by light microscopy NEGATIVE NRG Complete urinalysis with reflex to culture YES NRG Bacterial urine culture - 01/23/17 00:39 Bacterial urine culture [id number] NRG COLONY COUNT >100,000/ML NRG FTX;REPORTABLE SENSITIVITY REPORTED 01/23/17 8:40 NRG Bacterial susceptibility panel - 01/23/17 00:39 Gentamicin susceptibility test by minimum inhibitory concentration <= NRG Trimethoprim/sulfamethoxazole susceptibility test by minimum inhibitoryconcentration <= NRG Ampicillin susceptibility test by minimum inhibitory concentration >= NRG Tobramycin susceptibility test by minimum inhibitory concentration <= NRG Cefazolin susceptibility test by minimum inhibitory concentration <= NRG Ceftriaxone susceptibility test by minimum inhibitory concentration <= NRG Ampicillin/sulbactam susceptibility test by minimum inhibitory concentration 16 NRG Piperacillin/tazobactam susceptibility test by minimum inhibitory concentration <= NRG Ciprofloxacin susceptibility test by minimum inhibitory concentration <= NRG Meropenem susceptibility test by minimum inhibitory concentration <= NRG Nitrofurantoin susceptibility test by minimum inhibitory concentration >= NRG Aztreonam susceptibility test by minimum inhibitory concentration <= NRG Extended spectrum beta lactamase (ESBL) producing bacteria susceptibility test by minimum inhibitory concentration - NRG Encounters ACCT No. Visit Date/Time Discharge Status Pt. Type Provider Facility Loc./Unit Complaint [id number] 03/23/2015 08:50:00 03/23/2015 23: 59:59 CLS Outpatient ARIANE JENKINS PHD [id number] 03/09/2015 08:47:00 03/09/2015 23: 59:59 CLS Outpatient ARIANE JENKINS PHD [id number] 03/03/2015 08:55:00 03/03/2015 23: 59:59 CLS Outpatient AZALIA MEJIA APRN [id number] 01/27/2015 13:56:00 01/27/2015 23: 59:59 CLS Outpatient AZALIA MEJIA APRN [id number] 11/04/2014 08:53:00 11/04/2014 23: 59:59 CLS Outpatient AZALIA MEJIA APRN [id number] 11/04/2014 08:53:00 11/04/2014 23: 59:59 CLS Outpatient AZALIA MEJIA APRN [id number] 05/26/2014 11:34:00 05/26/2014 23: 59:59 CLS Outpatient AZALIA MEJIA APRN [id number] 04/22/2014 12:48:00 04/22/2014 23: 59:59 CLS Outpatient AZALIA MEJIA APRN [id number] 03/11/2014 12:49:00 03/11/2014 23: 59:59 CLS Outpatient AZALIA MEJIA APRN [id number] 02/10/2014 13:48:00 02/10/2014 23: 59:59 CLS Outpatient DEREK HERRERA MD [id number] 02/10/2014 13:48:00 02/10/2014 23: 59:59 CLS Outpatient AZALIA MEJIA APRN
--- NOTE | 2017-01-28 15:51 | Diagnostic Imaging Report ---
INDICATION: Acute onset pelvic pain. COMPARISON: 08/18/2012. DISCUSSION: Transabdominal and transvaginal sonographic evaluation of the pelvis was performed. The uterus is surgically absent. The ovaries appear normal in echotexture and size bilaterally with normal color Doppler blood flow. The right ovary measures 3.6 x 3.7 x 2.7 cm. Incidental note of a benign-appearing functional follicle within the right ovary measuring 2.3 cm which does not require further sonographic followup though could account for patient's pain. The left ovary measures 3.8 x 1.3 x 1.4 cm. No abnormal adnexal mass or fluid. IMPRESSION: 1. The uterus is surgically absent. 2. Incidental note of a right ovarian functional follicle which is benign though could account for patient's pain. Dictated by: Dictated on workstation # [id number]
== END ==
LOC: RAD 15:03
PROVIDERS: ATTEND Obstetrics & Gynecology
DX: R10.2 Pelvic and perineal pain (principal)
CPT/HCPCS: 76830; 76856

== ENCOUNTER 2017-01-31 12:57 | Outpatient (CLI) | payer MEDICAID ==
[~2017-01-31] VITALS: Ht 157.5 cm; Wt 43.6 kg
[~2017-01-31 12:57] MED LIST changes: -CLON0.5T3 PO; -HYDR-3812 PO; -IBUP-1773 PO
--- OUTSIDE RECORDS SUMMARY | 2017-01-31 13:04 | XMS REPORT | Continuity of Care Document ---
Author Author [facility] Address Unknown Phone Unavailable Allergies Active Description Code Type Severity Reaction Onset Reported/Identified Relationship to Patient Clinical Status Yes Sulfa (Sulfonamide Antibiotics) [id number] Drug Allergy Unknown N/A 06/06/2008 Yes Sulfa [...] 646.83 PREG COMPL NEC-ANTEPART 07/12/2013 TENNILLE MCFADDEN B2B SALES CONSULTANT Ot 646.83 PREG COMPL NEC-ANTEPART 07/12/2013 TENNILLE MCFADDEN B2B SALES CONSULTANT Ot 649.03 TOBACCO USE DISOR COMP PREG/CHILDBIRTH/P 07/12/2013 TENNILLE MCFADDEN B2B SALES CONSULTANT Ot 787.01 NAUSEA WITH VOMITING 07/12/2013 TENNILLE MCFADDEN B2B SALES CONSULTANT Ot 787.91 DIARRHEA 07/21/2013 MAVERICK MORELAND DO [...] RICCO PETE Danie Ot 959.3 12/09/2013 RICCO EPTE Danie Ot E000.8 12/09/2013 RICCO PETE Danie [...] APRNINDA J 309.81 AN PTSD 02/10/2014 ROBERTO B2B SALES CONSULTANT, AZALIA J 314.01 ADHD COMBINED 02/10/2014 AZALIA [...] Ot 620.8 NONINFL DIS OVA/ADNX NEC 12/22/2014 MAVEIRCK MORELAND DO Ot 998.11 HEMOR COMPLIC A [...] MAVERICK C Ot V74.8 11/11/2015 TENNILLE MCFADDEN B2B SALES CONSULTANT Ot S99.922A UNSPECIFIED INJURY OF LEFT FOOT, INITIAL 11/11/2015 TENNILLE MCFADDEN B2B SALES CONSULTANT Ot Z53.21 PROC/TRTMT NOT CRD OUT D/T [...] 06/28/2016 ADAN HEAD MD Ot Z79.899 OTHER POCKET CREASER (CURRENT) DRUG THERAPY 06/28/2016 ADAN HEAD MD Ot Z90.710 ACQUIRED ABSENCE OF BOTH CERVIX AND UTER 06/30/2016 ADAN HEAD MD Ot O92.79 OTHER DISORDERS OF 06/30/2016 ADAN HEAD MD Ot R10.84 GENERALIZED ABDOMINAL PAIN 06/30/2016 ADAN HEAD MD Ot Z79.899 OTHER POCKET CREASER (CURRENT) DRUG THERAPY 06/30/2016 ADAN HEAD MD Ot Z90.710 ACQUIRED ABSENCE OF BOTH CERVIX AND UTER 07/19/2016 ADAN HEAD MD Ot O92.79 OTHER DISORDERS OF 07/19/2016 ADAN HEAD MD Ot R10.84 GENERALIZED ABDOMINAL PAIN 07/19/2016 ADAN HEAD MD Ot Z79.899 OTHER POCKET CREASER (CURRENT) DRUG THERAPY 07/19/2016 ADAN HEAD MD [...] ACQUIRED ABSENCE OF BOTH CERVIX AND UTER 01/29/2017 PETE CHACKO DO Ot F17.210 NICOTINE DEPENDENCE, CIGARETTES, UNCOMPL 01/29/2017 PETE CHACKO DO Ot N39.0 URINARY TRACT INFECTION, SITE NOT SPECIF 01/29/2017 PETE CHACKO DO Ot R30.0 DYSURIA 01/29/2017 PETE CHACKO DO Ot Z90.710 ACQUIRED ABSENCE OF BOTH CERVIX AND UTER 01/30/2017 MAVERICK MORELAND DO Ot R10.2 PELVIC AND PERINEAL PAIN Procedures Code Description Performed By Performed On 73.4 MEDICAL INDUCTION LABOR 09/01/2013 73.59 MANUAL ASSIST DELIV NEC 09/01/2013 93553 PSYTX PT&/FAMILY 45 MINUTES 03/09/2015 43580 PSYTX PT&/FAMILY 45 MINUTES 03/23/2015 Results Test [...] culture - 01/23/17 00:39 Bacterial urine culture [id number] NRG COLONY COUNT >100,000/ML NRG FTX;REPORTABLE SENSITIVITY [...] Status Pt. Type Provider Facility Loc./Unit Complaint [id number] 03/23/2015 08:50:00 03/23/2015 23: 59:59 CLS Outpatient ARIANE JENKINS PHD [id number] 03/09/2015 08:47:00 03/09/2015 23: 59:59 CLS Outpatient ARIANE JENKINS PHD [id number] 03/03/2015 08:55:00 03/03/2015 23: 59:59 CLS Outpatient AZALIA MEJIA APRN [id number] 01/27/2015 13:56:00 01/27/2015 23: 59:59 CLS Outpatient AZLAIA MEJIA APRN [id number] 11/04/2014 08:53:00 11/04/2014 23: 59:59 CLS Outpatient AZALIA MEJIA APRN [id number] 11/04/2014 08:53:00 11/04/2014 23: 59:59 CLS Outpatient AAZLIA MEJIA APRN [id number] 05/26/2014 11:34:00 05/26/2014 23: 59:59 CLS Outpatient AZALIA MEJIA APRN [id number] 04/22/2014 12:48:00 04/22/2014 23: 59:59 CLS Outpatient AZALIA MEJIA APRN [id number] 03/11/2014 12:49:00 03/11/2014 23: 59:59 CLS Outpatient AZALIA MEJIA APRN [id number] 02/10/2014 13:48:00 02/10/2014 23: 59:59 CLS Outpatient DEREK HERRERA MD [id number] 02/10/2014 13:48:00 02/10/2014 23: 59:59 [facility] Outpatient AZALIA MEJIA APRN
[2017-01-31] MEDS ORDERED: METH20TA PO ×2 (13:22)
[2017-01-31] MEDS ORDERED: CLON0.5T3 PO (13:22)
[2017-01-31 13:31] VITALS: BP 120/82
[2017-01-31 14:22] LABS: BILIRUBIN,URINE NEGATIVE (NEGATIVE); KETONES,URINE NEGATIVE (NEGATIVE); LEUKOCYTE ESTERASE ,URINE NEGATIVE (NEGATIVE); NITRITE,URINE NEGATIVE (NEGATIVE); PH,URINE 7 (5-9); PROTEIN,URINE NEGATIVE (NEGATIVE); UROBILINOGEN,URINE NORMAL (NORMAL)
[2017-01-31 14:22] LABS: BASOPHILS % (AUTO) 0 % (0-10); EOSINOPHILS # (AUTO) 0.3 10^3/uL (0.0-0.3); EOSINOPHILS % (AUTO) 4 % (0-10); LYMPHOCYTES % (AUTO) 44 % (12-44); MEAN CORPUSCULAR HEMOGLOBIN 29 PG (25-34); MEAN CORPUSCULAR HGB CONC 34 G/DL (32-36); MEAN CORPUSCULAR VOLUME 87 FL (80-99); MEAN PLATELET VOLUME 12.7 FL (7.4-10.4); MONOCYTES # (AUTO) 0.3 X 10^3 (0.0-1.0); MONOCYTES % (AUTO) 5 % (0-12); NEUTROPHILS # (AUTO) 3.2 X 10^3 (1.8-7.8); NEUTROPHILS % (AUTO) 47 % (42-75); PLATELET COUNT 164 10^3/uL (130-400); RED BLOOD COUNT 5.29 10^6/uL (4.35-5.85); RED CELL DISTRIBUTION WIDTH 12.6 % (10.0-14.5); WHITE BLOOD COUNT 6.8 10^3/uL (4.3-11.0)
[2017-01-31 14:32] LABS: WBC,URINE 0-2 /HPF
[2017-02-05] MEDS ORDERED: HYDR-3812 PO (17:23)
[2017-02-05] MEDS ORDERED: IBUP-1773 PO (17:23)
== END 2017-01-31 14:43 | disposition home or self-care (01) ==
LOC: PREOP 12:57
PROVIDERS: ATTEND Obstetrics & Gynecology
DX: Z01.812 Encounter for preprocedural laboratory examination (principal); Z11.2 Encounter for screening for other bacterial diseases; N83.201 Unspecified ovarian cyst, right side; N39.3 Stress incontinence (female) (male); N81.9 Female genital prolapse, unspecified; N39.0 Urinary tract infection, site not specified
CPT/HCPCS: 36415; 81000; 85025; 87081

== ENCOUNTER 2017-02-05 06:50 | Day surgery (SDC) | payer MEDICAID ==
[~2017-02-05] VITALS: Ht 157.5 cm; Wt 43.6 kg
[~2017-02-05 06:50] MED LIST changes: +CLON0.5T3 PO
[2017-02-05 07:00] VITALS: BP 93/67
--- OUTSIDE RECORDS SUMMARY | 2017-02-05 07:04 | XMS REPORT | Continuity of Care Document ---
Author Author [facility] Address Unknown Phone Unavailable Allergies Active Description Code Type Severity Reaction Onset Reported/Identified Relationship to Patient Clinical Status Yes Sulfa (Sulfonamide Antibiotics) Drug Allergy N/A N/A 02/10/2014 Yes Sulfa (Sulfonamide Antibiotics) [id number] Drug Allergy Unknown N/A 01/31/2017 Medications Problems Date Dx Coded Attending Type [...] VIRGIE Childers Ot 490 BRONCHITIS NOS 07/07/2013 VIRIGE GUIDO MD Ot 646.83 PREG COMPL NEC-ANTEPART 07/12/2013 TENNILLE MCFADDEN SHIP RIGGER APPRENTICE Ot 646.83 PREG COMPL NEC-ANTEPART 07/12/2013 TENNILLE MCFADDEN SHIP RIGGER APPRENTICE Ot 649.03 TOBACCO USE DISOR COMP PREG/CHILDBIRTH/P 07/12/2013 TENNILLE MCFADDEN SHIP RIGGER APPRENTICE Ot 787.01 NAUSEA WITH VOMITING 07/12/2013 TENNILLE MCFADDEN SHIP RIGGER APPRENTICE Ot 787.91 DIARRHEA 07/21/2013 MAVERICK MORELAND DO [...] APRNINDA J 309.81 AN PTSD 02/10/2014 ROBERTO SHIP RIGGER APPRENTICE, AZALIA J 314.01 ADHD COMBINED 02/10/2014 AZALIA [...] MAVERICK C Ot V74.8 11/11/2015 TENNILLE MCFADDEN SHIP RIGGER APPRENTICE Ot S99.922A UNSPECIFIED INJURY OF LEFT FOOT, INITIAL 11/11/2015 TENNILLE MCFADDEN SHIP RIGGER APPRENTICE Ot Z53.21 PROC/TRTMT NOT CRD OUT D/T [...] 06/28/2016 ADAN HEAD MD Ot Z79.899 OTHER ANIMATION PRODUCER (CURRENT) DRUG THERAPY 06/28/2016 ADAN HEAD MD Ot Z90.710 ACQUIRED ABSENCE OF BOTH CERVIX AND UTER 06/30/2016 ADAN HEAD MD Ot O92.79 OTHER DISORDERS OF 06/30/2016 ADAN HEAD MD Ot R10.84 GENERALIZED ABDOMINAL PAIN 06/30/2016 ADAN HEAD MD Ot Z79.899 OTHER ANIMATION PRODUCER (CURRENT) DRUG THERAPY 06/30/2016 ADAN HEAD MD Ot Z90.710 ACQUIRED ABSENCE OF BOTH CERVIX AND UTER 07/19/2016 ADAN HEAD MD Ot O92.79 OTHER DISORDERS OF 07/19/2016 ADAN HEAD MD Ot R10.84 GENERALIZED ABDOMINAL PAIN 07/19/2016 ADAN HEAD MD Ot Z79.899 OTHER ANIMATION PRODUCER (CURRENT) DRUG THERAPY 07/19/2016 ADAN HEAD MD [...] PETE CHACKO DO Ot R30.0 DYSURIA 01/24/2017 RICCO DOPETE Ot Z90.710 ACQUIRED ABSENCE OF BOTH CERVIX AND UTER 01/29/2017 RICCO DOPETE Ot F17.210 NICOTINE DEPENDENCE, CIGARETTES, UNCOMPL 01/29/2017 RICCO DOPETE Ot N39.0 URINARY TRACT INFECTION, SITE NOT SPECIF 01/29/2017 RICCO DOPETE Ot R30.0 DYSURIA 01/29/2017 IRCCO DOPETE Ot Z90.710 ACQUIRED ABSENCE OF BOTH CERVIX AND UTER 01/30/2017 MORELAND DO MAVERICK Penny Ot R10.2 PELVIC AND PERINEAL PAIN 02/01/2017 MORELAND DO MAVERICK C Ot N39.0 URINARY TRACT INFECTION, SITE NOT SPECIF 02/01/2017 MORELAND DO MAVERICK C Ot N39.3 STRESS INCONTINENCE (FEMALE) (MALE) 02/01/2017 MORELAND MAVERICK C Ot N81.9 FEMALE GENITAL PROLAPSE, UNSPECIFIED 02/01/2017 MORELAND DO MAVERICK Zohaib Ot N83.201 UNSPECIFIED OVARIAN CYST, RIGHT SIDE 02/01/2017 MORELAND MAVERICK Penny Ot Z01.812 ENCOUNTER FOR PREPROCEDURAL LABORATORY E 02/01/2017 MERLY PERKINS MAVERICK Penny Ot Z11.2 ENCOUNTER FOR SCREENING FOR OTHER BACTER Procedures Code Description Performed By Performed On 73.4 MEDICAL INDUCTION LABOR 09/01/2013 73.59 MANUAL ASSIST DELIV NEC 09/01/2013 22839 PSYTX PT&/FAMILY 45 MINUTES 03/09/2015 57425 PSYTX PT&/FAMILY 45 MINUTES 03/23/2015 Results Test [...] culture - 01/23/17 00:39 Bacterial urine culture [id number] NRG COLONY COUNT >100,000/ML NRG FTX;REPORTABLE SENSITIVITY [...] test by minimum inhibitory concentration - NRG Complete urinalysis with reflex to culture - 01/31/17 14:00 Urine color determination YELLOW NRG Urine clarity determination CLEAR NRG Urine pH measurement by test strip 7 5- 9 Specific gravity of urine by test strip 1.010 1.016-1.022 Urine protein assay by test strip, [...] NORMAL Urine leukocyte esterase detection by dipstick NEGATIVE NEGATIVE Automated urine sediment erythrocyte count by microscopy (number/high power field) NONE NRG Automated urine sediment leukocyte count by microscopy (number/high power field ) [HPF] NRG Bacteria detection in urine sediment by light microscopy TRACE NRG Squamous epithelial cells detection in urine sediment by light microscopy 5-10 NRG Crystals detection in urine sediment by light microscopy NONE NRG Casts detection in urine sediment by light microscopy NONE NRG Mucus detection in urine sediment by light microscopy MODERATE NRG Complete urinalysis with reflex to culture NO NRG Complete blood count (CBC) with automated white blood cell (WBC) differential - 01/31/17 14:10 Blood leukocytes automated count (number/volume) 6.8 10*3/ uL 4.3-11.0 Blood erythrocytes automated count (number/volume) 5.29 10*6 /uL 4.35-5.85 Venous blood hemoglobin measurement (mass/volume) 15.5 g/dL 11.5-16.0 Blood hematocrit (volume fraction) 46 % 35-52 Automated erythrocyte mean corpuscular volume 87 [foz_us] 80-99 Automated erythrocyte mean corpuscular hemoglobin (mass per erythrocyte) 29 pg 25-34 Automated erythrocyte mean corpuscular hemoglobin concentration measurement ( mass/volume) 34 g/dL 32-36 Automated erythrocyte distribution width ratio 12.6 % 10.0-14.5 Automated blood platelet count (count/volume) 164 10*3/uL 130-400 Automated blood platelet mean volume measurement 12.7 [foz_ us] 7.4-10.4 Automated blood neutrophils/100 leukocytes 47 % 42-75 Automated blood lymphocytes/100 leukocytes 44 % 12-44 Blood monocytes/100 leukocytes 5 % 0-12 Automated blood eosinophils/100 leukocytes 4 % 0-10 Automated blood basophils/100 leukocytes 0 % 0-10 Blood neutrophils automated count (number/volume) 3.2 10*3 1.8-7.8 Blood lymphocytes automated count (number/volume) 3.0 10*3 1.0-4.0 Blood monocytes automated count (number/volume) 0.3 10*3 0.0-1.0 Automated eosinophil count 0.3 10*3/uL 0.0-0.3 Automated blood basophil count (count/volume) 0.0 10*3/uL 0.0-0.1 Methicillin resistant Staphylococcus aureus (MRSA) screening culture - 14:10 Methicillin resistant Staphylococcus aureus (MRSA) screening culture NEG NRG Encounters ACCT No. Visit Date/Time Discharge Status Pt. Type Provider Facility Loc./Unit Complaint [id number] 03/23/2015 08:50:00 03/23/2015 23: 59:59 CLS Outpatient ALICE ARIANE WALKER [id number] 03/09/2015 08:47:00 03/09/2015 23: 59:59 CLS Outpatient ALICE WALKER ARIANE A [id number] 03/03/2015 08:55:00 03/03/2015 23: 59:59 CLS Outpatient AZALIA MEJIA APRN [id number] 01/27/2015 13:56:00 01/27/2015 23: 59:59 CLS Outpatient AZALIA MEJIA APRN [id number] 11/04/2014 08:53:00 11/04/2014 23: 59:59 CLS Outpatient AZALIA MEJIA APRN [id number] 11/04/2014 08:53:00 11/04/2014 23: 59:59 CLS Outpatient AZALIA MEJIA APRN [id number] 05/26/2014 11:34:00 05/26/2014 23: 59:59 CLS Outpatient AZALIA MEJIA APRN [id number] 04/22/2014 12:48:00 04/22/2014 23: 59:59 CLS Outpatient AZALIA MEJIA APRN [id number] 03/11/2014 12:49:00 03/11/2014 23: 59:59 CLS Outpatient AZALIA MEJIA APRN [id number] 02/10/2014 13:48:00 02/10/2014 23: 59:59 CLS Outpatient DEREK HERRERA MD [id number] 02/10/2014 13:48:00 02/10/2014 23: 59:59 CLS Outpatient AZALIA MEJIA APRN
--- OUTSIDE RECORDS SUMMARY | 2017-02-05 07:05 | XMS REPORT | Continuity of Care Document ---
Author Author [facility] Address Unknown Phone Unavailable Allergies Active Description Code Type Severity Reaction Onset Reported/Identified Relationship to Patient Clinical Status Yes Sulfa (Sulfonamide Antibiotics) Drug Allergy N/A N/A 02/10/2014 Yes Sulfa (Sulfonamide Antibiotics) [id number] Drug Allergy Unknown N/A 01/31/2017 Medications Problems [...] E000.8 OTHER EXTERNAL CAUSE STATUS 06/15/2013 MAVERICK OMRELAND DO Ot E888.9 FALL NOS 06/28/2013 MAVERICK MORELAND DO Ot 644.03 THRT KATHY LABOR-ANTEPART 07/07/2013 LATA CANTU, VIRGIE Childers Ot 490 BRONCHITIS NOS 07/07/2013 VIRGIE GUIDO MD Ot 646.83 PREG COMPL NEC-ANTEPART 07/12/2013 TENNILLE MCFADDEN REED POLISHER Ot 646.83 PREG COMPL NEC-ANTEPART 07/12/2013 TENNILLE MCFADDEN REED POLISHER Ot 649.03 TOBACCO USE DISOR COMP PREG/CHILDBIRTH/P 07/12/2013 TENNILLE MCFADDEN REED POLISHER Ot 787.01 NAUSEA WITH VOMITING 07/12/2013 TENNILLE MCFADDEN REED POLISHER Ot 787.91 DIARRHEA 07/21/2013 MAVERICK MORELAND DO [...] APRNINDA J 309.81 AN PTSD 02/10/2014 ROBERTO REED POLISHER, AZALIA J 314.01 ADHD COMBINED 02/10/2014 AZALIA [...] MAVERICK C Ot V74.8 11/11/2015 TENNILLE MCFADDEN REED POLISHER Ot S99.922A UNSPECIFIED INJURY OF LEFT FOOT, INITIAL 11/11/2015 TENNILLE MCFADDEN REED POLISHER Ot Z53.21 PROC/TRTMT NOT CRD OUT D/T [...] 06/28/2016 ADAN HEAD MD Ot Z79.899 OTHER PROPERTY STAFF ACCOUNTANT (CURRENT) DRUG THERAPY 06/28/2016 ADAN HEAD MD Ot Z90.710 ACQUIRED ABSENCE OF BOTH CERVIX AND UTER 06/30/2016 ADAN HEAD MD Ot O92.79 OTHER DISORDERS OF 06/30/2016 ADAN HEAD MD Ot R10.84 GENERALIZED ABDOMINAL PAIN 06/30/2016 ADAN HEAD MD Ot Z79.899 OTHER PROPERTY STAFF ACCOUNTANT (CURRENT) DRUG THERAPY 06/30/2016 ADAN HEAD MD Ot Z90.710 ACQUIRED ABSENCE OF BOTH CERVIX AND UTER 07/19/2016 ADAN HEAD MD Ot O92.79 OTHER DISORDERS OF 07/19/2016 ADAN HEAD MD Ot R10.84 GENERALIZED ABDOMINAL PAIN 07/19/2016 ADAN HEAD MD Ot Z79.899 OTHER PROPERTY STAFF ACCOUNTANT (CURRENT) DRUG THERAPY 07/19/2016 ADAN HEAD MD [...] 01/29/2017 RICCO DOPETE Ot R30.0 DYSURIA 01/29/2017 RICCO DOPETE Ot Z90.710 ACQUIRED ABSENCE OF [...] 09/01/2013 73.59 MANUAL ASSIST DELIV NEC 09/01/2013 60849 PSYTX PT&/FAMILY 45 MINUTES 03/09/2015 13202 PSYTX PT&/FAMILY 45 MINUTES 03/23/2015 Results Test [...] culture - 01/23/17 00:39 Bacterial urine culture [id number] NRG COLONY COUNT >100,000/ML NRG FTX;REPORTABLE SENSITIVITY [...] Status Pt. Type Provider Facility Loc./Unit Complaint [id number] 03/23/2015 08:50:00 03/23/2015 23: 59:59 CLS Outpatient ALICE ARIANE WALKER [id number] 03/09/2015 08:47:00 03/09/2015 23: 59:59 CLS Outpatient ALICE WALKER ARIANE A [id number] 03/03/2015 08:55:00 03/03/2015 23: 59:59 CLS Outpatient AZALIA MEJIA APRN [id number] 01/27/2015 13:56:00 01/27/2015 23: 59:59 CLS Outpatient AZALIA MEJIA APRN [id number] 11/04/2014 08:53:00 11/04/2014 23: 59:59 CLS Outpatient AZALIA MEJIA APRN [id number] 11/04/2014 08:53:00 11/04/2014 23: 59:59 CLS Outpatient AZALIA MEJIA APRN [id number] 05/26/2014 11:34:00 05/26/2014 23: 59:59 CLS Outpatient AZALIA MEJIA APRN [id number] 04/22/2014 12:48:00 04/22/2014 23: 59:59 CLS Outpatient AZALIA MEJIA APRN [id number] 03/11/2014 12:49:00 03/11/2014 23: 59:59 CLS Outpatient AZALIA MEJIA APRN [id number] 02/10/2014 13:48:00 02/10/2014 23: 59:59 CLS Outpatient DEREK HERRERA MD [id number] 02/10/2014 13:48:00 02/10/2014 23: 59:59 CLS Outpatient AZALIA MEJIA APRN
[2017-02-05] MEDS ORDERED: metroNIDAZOLE 500 MG/100 ML IVPB (PRE-MIX) IV ONE (07:30)
[2017-02-05] MEDS ORDERED: CATHETER FLUSH 10 ML SYR IV PRN (07:30)
[2017-02-05] MEDS ORDERED: ceFAZolin 1 GM/NS 50 ML IVPB IV ONE ×2 (07:30)
[2017-02-05] MEDS ORDERED: NS (IVPB) 100 ML ONE (07:50)
[2017-02-05] MEDS ORDERED: BUP/EPI 0.25% 1:200,000 (MARCAINE) 30 ML VIAL ONE (07:50)
[2017-02-05] MEDS ORDERED: VASOPRESSIN INJECTION 20 UNIT/ML VIAL ONE (07:50)
[2017-02-05] MEDS ORDERED: MIDAZOLAM 2 MG/2 ML (VERSED) VIAL ONE ×2 (08:10→08:40)
[2017-02-05] MEDS: LACTATED RINGERS 1,000 ML IV PRN ×2 (08:25→09:25)
[2017-02-05] MEDS ORDERED: MIDAZOLAM 2 MG/2 ML (VERSED) VIAL IV ONE (08:30)
[2017-02-05] MEDS ORDERED: proPOfol 200 MG/20 ML (DIPRIVAN) VIAL IV ONE (08:39)
[2017-02-05] MEDS ORDERED: LIDOCAINE PF 2% 10 ML (XYLOCAINE) AMP ONE (08:39)
[2017-02-05] MEDS ORDERED: ONDANSETRON 4 MG/2 ML (SDV) Z0FRAN ONE (08:39)
[2017-02-05] MEDS ORDERED: SEVOFLURANE (ULTANE) 15 ML INHAL SOLN ONE ×3 (08:39→11:09)
[2017-02-05] MEDS ORDERED: ROCURONIUM 50 MG/5 ML (ZEMURON) VIAL IV ONE (08:39)
[2017-02-05] MEDS ORDERED: DEXAMETHASONE PF 10 MG/ML (DECADRON) VIAL ONE (08:39)
[2017-02-05] MEDS ORDERED: LACTATED RINGERS 1,000 ML IV ONE (08:39)
[2017-02-05] MEDS ORDERED: fentaNYL INJECTION 100 MCG/2 ML AMP ONE ×2 (08:40→10:25)
[2017-02-05] MEDS ORDERED: TRAM50TA2 PO (09:00)
--- NOTE | 2017-02-05 09:07 | Progress Note-Pre Operative ---
Pre-Operative Progress Note H&P Reviewed The H&P was reviewed, patient examined and no changes noted. Date H&P Reviewed: Feb 05, 2017 Time H&P Reviewed: 07:40 Pre-Operative Diagnosis: RIGHT OVARIAN CYST, PELVIC PAIN, CYSTOCELE, KOFI, SKIN TAG MAVERICK MORELAND DO Feb 05, 2017 9:07 am
[2017-02-05] MEDS ORDERED: ESTRADIOL VAGINAL CREAM 42.5 GM (ESTRACE) VG ONE (10:06)
--- NOTE | 2017-02-05 10:39 | Operative Report ---
Operative Report Date of Procedure/Surgery Feb 05, 2017 Post-Operative Diagnosis right ovarian cyst, pelvic pain, endometriosis, cystocele, aaron, left thigh skin tag/papilloma/acrochordon Procedure Performed Name of Procedure: Laparoscopy with right oophorectomy, fulgeration of endometriosis, cystocele, Solyx vaginal sling, left thigh skin lesion excision Description of Procedure Radiologic Technology Teacher ARNOLD Pelayo shampoo assistant necessary to retract important neurovascular structures, assist with laparoscopy camera manipulation Estimated blood loss (mL): 150 ml Specimen(s) collected right ovary, papilloma left inner thigh Indications increasing pelvic pain, right ovarian cyst on US, worsening AARON, and cystocele. Procedure With informed consent the patient was taken to the operating room where she was prepped and draped in the usual sterile fashion in the dorsal lithotomy position. Bladder was drained with a straight catheter of clear yellow urine. A sponge stick was placed in the vagina. Attention was now turned to the abdomen where the umbilicus was injected with 0.25 percent Marcaine and a 5 mm skin incision was made. The varies needle was inserted and intra-abdominal placement was confirmed with the saline drop test and a drop in pressure. The 5 mm trocar was now inserted and a survey of the pelvis revealed a normal- appearing pelvis with previous hysterectomy and previous salpingectomy bilaterally. There was a large right ovarian cyst, approximately 3 cm. There was evidence of endometriosis along the anterior cul-de-sac and near the uterosacral ligaments and these were eventually fulgurated. Attention was now turned to the left lower quadrant were 2 additional 5 mm trochars were inserted lateral to the rectus muscles and avoiding the inferior epigastric vessels. I then inserted a Harmonic scalpel and burned the previous existing endometriosis. And then elevated the left ovary and clamped this at the infundibulopelvic ligament and transected this with the harmonic scalpel. There was good hemostasis. The left lower quadrant lowest incision was expanded and allowed to insert a 10 mm trocar. I then inserted an Endo Catch and removed the ovary through this incision. The pelvis was then irrigated. I then removed the left lower quadrant trocar and then closed the fascial incision with 0 Vicryl in a [id number] fashion under direct visualization. I then closed the skin with 4-0 Monocryl. I then removed the gas and the other instruments from the abdomen. And then closed the skin with Dermabond. Bandages were placed. Attention was now turned to the pelvis. The patient had a 2-3+ cystocele. The anterior vaginal epithelium was grasped in the midline and injected with dilute vasopressin creating a hydrodistention. I then made a midline incision and dissected the vaginal epithelium off the pubovesical fascia. I did this up to the vaginal cuff and as laterally as I could but not quite to the white line bilaterally. I then plicated the vaginal epithelium in the midline with interrupted 2-0 Vicryl stitches and mattress fashion. I did this in 2 layers. Then trimmed the excess epithelium and reapproximated this vaginal epithelium with 2-0 Vicryl. I then made a 1 cm incision about 1.5 cm from the urethral meatus. I then dissected laterally in the barrier urethral space to the obturator space bilaterally. Due to the patient's small size, prior to placing the Celexa, and shortened this by taking a fold on either side of the midline and sutured this to make the Solyx slightly shorter. I then placed the Solyx sling in standard fashion. I then did a cystoscopy revealing little leakage with Cred after filling the bladder to approximately 400 mL. While doing the cystoscopy I saw no intra-vesicular pathology and bilateral ureters were effluxing. I removed the cystoscope and then was reassured that the Solyx was tight and removed the application device. The vaginal epithelium was then closed with 4-0 Biosyn in running fashion. Estrace cream and vaginal packing was placed. The patient had a papilloma on the left inner thigh that was approximately 5 mm at the base. I cleansed this with a Betadine, and then made a medial with Marcaine by injecting under the lesion. I then cut the lesion at the skin. And then controlled any bleeding with silver nitrate. Patient was awakened and taken to the recovery room in standard fashion. Sponge lap needle and instrument counts were correct 2. Allergies and Home Medications Allergies Coded Allergies: Sulfa (Sulfonamide Antibiotics) (Verified Allergy, Unknown, 01/31/17) Home Medications Clonazepam 0.5 Mg Tablet, 0.5 MG PO BID, (Reported) Hydrocodone/Acetaminophen 1 Each Tablet, 1-2 TAB PO Q4H PRN for PAIN, #45 Prescribed by: MAVERICK MORELAND on 02/05/17 5241 Ibuprofen 600 Mg Tablet, 600 MG PO Q6HR, #40 Prescribed by: MAVERICK MORELAND on 02/05/17 1723 Methylphenidate HCl 20 Mg Tablet, 20 MG PO BID, (Reported) Methylphenidate HCl 20 Mg Tablet, 10 MG PO HS, (Reported) Tramadol HCl 50 Mg Tablet, 50 MG PO Q4H, #0 Prescribed by: LENORA VARGAS on 02/05/17 0900 MAVERICK MORELAND DO Feb 05, 2017 10:39 am
[2017-02-05] MEDS ORDERED: KETOROLAC 30 MG/ML VIAL IVP ONE (10:45)
[2017-02-05] MEDS ORDERED: morphine INJ 10 MG/ML 1ML (SYR OR VIAL) ONE (10:55)
[2017-02-05] MEDS ORDERED: MEPERIDINE (DEMEROL) INJ 50 MG/ML ONE (10:55)
[2017-02-05] MEDS ORDERED: fentaNYL INJECTION 100 MCG/2 ML AMP IV PRN (11:00)
[2017-02-05] MEDS ORDERED: PROMETHAZINE INJ 25 MG/ML (PHENERGAN) AMP IV PRN (11:00)
[2017-02-05] MEDS ORDERED: HYDROmorphone (DILAUDID) 2 MG/ML VIAL IV PRN (11:00)
[2017-02-05] MEDS ORDERED: ONDANSETRON 4 MG/2 ML (SDV) Z0FRAN IV PRN (11:00)
[2017-02-05] MEDS: MEPERIDINE (DEMEROL) INJ 50 MG/ML IV PRN ×2 (11:12→11:14)
[2017-02-05] MEDS: morphine INJ 10 MG/ML 1ML (SYR OR VIAL) IV PRN ×2 (11:15→11:21)
[2017-02-05] MEDS ORDERED: PROMETHAZINE INJ 25 MG/ML (PHENERGAN) AMP ONE (11:21)
[2017-02-05 12:02] VITALS: BP 95/72
[2017-02-05] MEDS: HYDROcodone/APAP 5 MG/325 MG (LORTAB) TAB PO PRN ×4 (13:18→23:41)
[2017-02-05] MEDS: LACTATED RINGERS 1,000 ML IV SCH ×2 (14:58→19:12)
[2017-02-05 16:08] VITALS: BP 82/52
[2017-02-05] MEDS: HYDROmorphone (DILAUDID) 2 MG/ML VIAL IVP PRN ×2 (16:17→20:21)
[2017-02-05] MEDS ORDERED: HYDR-3812 PO (17:23)
[2017-02-05] MEDS ORDERED: IBUP-1773 PO (17:23)
--- NOTE | 2017-02-05 17:25 | Discharge Inst-Women's Service ---
Discharge Inst-Women's Serv Depart Medication/Instructions New, Converted or Re-Newed RX: RX on Chart Final Diagnosis right ovarian cyst pelvic pain cystocele stress incontinence Consults/Follow Up Additional Follow Up: Yes (1-2 weeks and 6 weeks ) Activity Activity: Activity as Tolerated Driving Instructions: No Driving for 1 Week NO SMOKING: NO SMOKING Other Activity nothing in the vagina until follow up no lifting over 25 lbs Diet Discharge Diet: No Restrictions Symptoms to Report to : Bleeding Excessive, Pain Increased, Fever Over 101 Degrees F, Vaginal Bleeding Increase, Vaginal Discharge Foul For Any Problems or Questions: Contact Your Physician Skin/Wound Care Infection Signs and Symptoms: Increased Redness, Foul Odor of Wound, Increased Drainage, Skin Itchy or Has a Rash, Increased Swelling, Temperature Above 101 F Operative Area Clean and Dry: You May Remove Bandage (remove in 3-4 days, or if soiled/wet. Bandaids can be removed tomorrow) Stitches/[place]/Dermabond: Dermabond Bathing Instructions: MAVERICK Kingsley DO Feb 05, 2017 17:25
[2017-02-05] MEDS: KETOROLAC 30 MG/ML VIAL IV PRN ×2 (17:47→23:42)
[2017-02-05 19:55] VITALS: BP 82/44
[2017-02-05] MEDS: DOCUSATE SODIUM 100 MG (COLACE) CAP PO SCH (20:20)
[2017-02-05 23:45] VITALS: BP 77/42
[2017-02-06] MEDS ORDERED: IBUPROFEN 600 MG (MOTRIN) TAB PO SCH
[2017-02-06] MEDS: LACTATED RINGERS 1,000 ML IV SCH (02:00)
[2017-02-06 05:00] VITALS: BP 76/51
[2017-02-06] MEDS: KETOROLAC 30 MG/ML VIAL IV PRN (06:18)
[2017-02-06] MEDS: HYDROcodone/APAP 5 MG/325 MG (LORTAB) TAB PO PRN (07:02)
[2017-02-06 07:56] VITALS: BP 85/55
--- NOTE | 2017-02-06 08:26 | Progress Note-Standard ---
Standard Progress Note Progress Notes/Assess & Plan Date Seen 02/06/17 Assess & Plan/Chief Complaint POD#1 Pt denies complaints Pain is tolerable with pain medications Has voided Ambulating Tolerating oral intake without n/v Vaginal packing removed, bleeding minimal Wants IV out, wants to leave now Vital Sign - Last 12Hours 02/05/17 02/06/17 02/06/17 23:45 05:00 07:56 Temp 97.4 97.3 99.2 Pulse 66 61 60 Resp 16 16 18 B/P 77/42 76/51 85/55 Pulse Ox 96 97 98 O2 Delivery Room Air Room Air Room Air Intake and Output 02/06/17 00:00 Output Total 225 ml Balance -225 ml (UOP 675mL overnight) Gen: NAD Abd: Soft, nttp, lap sites covered with bandages Ext: No c/c/e no new labs A/P: 26 y/o s/p laparoscopy with right oophorectomy, fulguration of endometriosis, cystocele repair, Solyx vaginal sling, left thigh skin lesion excision by Dr. Romero POD#1 Routine post-op care D/c once meeting all criteria ANDRADE HERMOSILLO MD Feb 06, 2017 08:26
[2017-02-06] MEDS: DOCUSATE SODIUM 100 MG (COLACE) CAP PO SCH (09:30)
[2017-02-06 10:50] VITALS: BP 85/55
[2017-02-06] MEDS ORDERED: FLU TRIvalent (5 YOA+) 2016-17 (AFLURIA) 0.5 ML IM ONE (11:00)
== END 2017-02-06 10:50 | disposition home or self-care (01) ==
LOC: SDC 06:50 → UNDOADMIN 11:07 → WS 11:07 → UNDODISIN 02-06 10:50 → SDC 02-06 10:50
PROVIDERS: ATTEND Obstetrics & Gynecology
DX: D27.0 Benign neoplasm of right ovary (principal); L83 Acanthosis nigricans; N39.3 Stress incontinence (female) (male); N81.10 Cystocele, unspecified; N80.3 Endometriosis of pelvic peritoneum
CPT/HCPCS: 84703; 88305; 88307; 94664; 96361; 96375; 96376

== ENCOUNTER → 2017-08-30 | Outpatient (CLI) | payer MEDICAID ==
[~2017-08-30] MED LIST changes: +HYDR-3812 PO; +IBUP-1773 PO
--- NOTE | 2017-08-30 19:29 | Diagnostic Imaging Report ---
INDICATION: Scoliosis. FINDINGS: There is an S-shaped scoliosis convex to the right at the lower thoracic spine and convex to the left in the mid lumbar spine level. Fernandez angle is 34 degrees. No spinal vertebral body anomaly or paraspinal soft tissue mass is identified. Surgical clips in the right flank region seen. Correlate with surgical history. IMPRESSION: S-shaped thoracolumbar scoliosis with Fernandez angle of 34 degrees. Dictated by: Dictated on workstation # [id number]
== END ==
LOC: RAD 08:08
PROVIDERS: ATTEND Family Medicine
DX: M41.115 Juvenile idiopathic scoliosis, thoracolumbar region (principal)
CPT/HCPCS: 72081

== ENCOUNTER 2017-09-04 17:10 | Emergency (ER) | payer MEDICAID ==
[~2017-09-04] VITALS: Ht 157.5 cm; Wt 41.7 kg
[2017-09-04] MEDS ORDERED: CYPR4TAB (17:29)
--- NOTE | 2017-09-04 17:36 | ED General ---
General Chief Complaint: General Problems/Pain Stated Complaint: BACK PAIN Nursing Triage Note: ARRIVED VIA AMB TO ROOM 08 WITH COMPLAINTS OF INCREASED BACK PAIN DUE TO SCOLIOSIS. IS REQUESTING SOME KIND OF BACK BRACE THAT WAS RECOMENDED TO HER. Nursing Sepsis Screen: No Definite Risk Source of Information: Patient Exam Limitations: No Limitations History of Present Illness Time Seen by Provider: 17:35 Initial Comments Ambulatory to ER with reports of chronic back pain. She occasionally has numbness over the lateral aspect of the right foot. No loss of bowel or bladder control or saddle anesthesia. She had a scoliosis x-ray done here 5 days ago showing a cough angle of 34. She presents here today hoping to get a back brace. Timing/Duration: Other Severity: Moderate Allergies and Home Medications Allergies Coded Allergies: Sulfa (Sulfonamide Antibiotics) (Verified Allergy, Unknown, 01/31/17) Home Medications Clonazepam 0.5 Mg Tablet, 0.5 MG PO BID, (Reported) Cyproheptadine HCl 4 Mg Tablet, (Reported) Hydrocodone/Acetaminophen 1 Each Tablet, 1-2 TAB PO Q4H PRN for PAIN, #45 Prescribed by: MAVERICK MORELAND on 02/05/17 1723 Ibuprofen 600 Mg Tablet, 600 MG PO Q6HR, #40 Prescribed by: MAVERICK MORELAND on 02/05/17 1723 Methylphenidate HCl 20 Mg Tablet, 20 MG PO BID, (Reported) Methylphenidate HCl 20 Mg Tablet, 10 MG PO HS, (Reported) Tramadol HCl 50 Mg Tablet, 50 MG PO Q4H, #0 Prescribed by: LENORA VARGAS on 02/05/17 0900 Constitutional: see HPI EENTM: see HPI Respiratory: no symptoms reported Cardiovascular: no symptoms reported Genitourinary: no symptoms reported Musculoskeletal: see HPI, back pain Skin: no symptoms reported Psychiatric/Neurological: No Symptoms Reported Past Syechhk-Etfurq-Phwuen Hx Patient Social History Type Used: Cigarettes 2nd Hand Smoke Exposure: Yes Recent Foreign Travel: No Contact w/Someone Who Travel: No Recent Infectious Disease Expo: No Recent Hopitalizations: No Immunizations Up To Date Tetanus Booster (TDap): Less than 5yrs PED Vaccines UTD: No Date of Influenza Vaccine: Oct 14, 2014 Seasonal Allergies Seasonal Allergies: No Surgeries History of Surgeries: Yes ( RECTOCELE, ABSCESS I&D'S) Surgeries: Gallbladder, Hysterectomy, Rectal Respiratory History of Respiratory Disorde: No Respiratory Disorders: Pneumonia Cardiovascular History of Cardiac Disorders: No Neurological History of Neurological Disord: No Reproductive System Hx Reproductive Disorders: Yes (GENITAL PROLAPSE) Sexually Transmitted Disease: No HIV/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 Genitourinary Genitourinary Disorders: Bladder Infection Gastrointestinal History of Gastrointestinal Di: No Musculoskeletal History of Musculoskeletal Dis: Yes Musculoskeletal Disorders: Scoliosis, Fractures Endocrine History of Endocrine Disorders: No HEENT History of HEENT Disorders: No Loss of Vision: Bilateral Hearing Impairment: Denies Cancer History of Cancer: No Psychosocial History of Psychiatric Problem: Yes Behavioral Health Disorders: ADD/ADHD, Depression Integumentary History of Skin or Integumenta: Yes (MRSA, ABSCESSES,SKIN TAG) Blood Transfusions History of Blood Disorders: No Adverse Reaction to a Blood Tr: No Family Medical History Family Medial History: Abdominal aortic aneurysm Grandfather, Onset:60 years & older Arthritis 19 MOTHER, Onset:30's - 40 Seizure disorder 19 MOTHER, Onset:Childhood No Family History of: AIDS Noel's disease Alcoholism Alzheimer's disease Aphasia Asthma Cancer of mouth Cardiovascular disease Cataracts Colon cancer Completed stroke Congenital disease Congenital heart disease Coronary thrombosis Cystic fibrosis Deafness or hearing loss Dementia Diabetes mellitus Drug abuse Dysphasia Fibrocystic disease of breast Gastroenteritis Glaucoma Headache disorder Hypercholesterolemia Hypertension Infertility Kidney disease Myocardial infarction Neoplasm Not obtainable due to adoption Osteoporosis Parkinson's disease Prostate cancer Psychosocial problem Respiratory disorder Severe allergy Thyroid disease Tuberculosis Visual disorder Physical Exam Vital Signs Vital Sign - Last 12Hours 09/04/17 17:15 Temp 98.0 Pulse 119 Resp 18 B/P (MAP) 101/82 Pulse Ox 100 Capillary Refill : Less Than 3 Seconds General Appearance: No Apparent Distress, WD/WN, Thin Eyes: Bilateral Eye Normal Inspection, Bilateral Eye PERRL, Bilateral Eye EOMI HEENT: PERRL/EOMI, TMs Normal Neck: Full Range of Motion, Normal Inspection Respiratory: No Accessory Muscle Use, No Respiratory Distress Cardiovascular: Regular Rate, Rhythm, Normal Peripheral Pulses Gastrointestinal: Non Tender, Soft Back: Vertebral Tenderness, Other (scoliotic curvature) Extremity: Normal Capillary Refill, Normal Inspection Neurologic/Psychiatric: Alert, Oriented x3, No Motor/Sensory Deficits Progress/Results/Core Measures Results/Orders Vital Signs/I&O Vital Sign - Last 12Hours 09/04/17 17:15 Temp 98.0 Pulse 119 Resp 18 B/P (MAP) 101/82 Pulse Ox 100 Blood Pressure Mean: 88 Departure Impression Impression: Primary Impression: Scoliosis Disposition: 01 HOME, SELF-CARE Condition: Stable Departure-Patient Inst. Decision time for Depature: 17:36 Referrals: [facility] (PCP/Family) Primary Care Physician MARK CEJA BRIAN J MD Patient Instructions: Scoliosis Add. Discharge Instructions: 1. Return to ER for any concerns 2. Call Dr. Ceja or Dr. Kenny tomorrow All discharge instructions reviewed with patient and/or family. Voiced understanding. Scripts Meloxicam (Meloxicam) 7.5 Mg Tablet 7.5 MG PO DAILY, #30 TAB Prov: TENNILLE MCFADDEN LOADING MACHINE OPERATOR 09/04/17 Hydrocodone/Acetaminophen ([place] 5-325 Tablet) 1 Each Tablet 1 EACH PO Q4H Y for PAIN-MILD, #30 TAB Prov: TENNILLE MCFADDEN APRN 09/04/17 TENNILLE MCFADDEN APRN Sep 04, 2017 17:36
[2017-09-04] MEDS ORDERED: HYDR-757 PO (17:41)
[2017-09-04] MEDS ORDERED: MELO7.5T46 PO (17:41)
[2017-09-04] MEDS ORDERED: KETOROLAC 60 MG/2 ML VIAL IM ONE (17:45)
[2017-09-04] MEDS ORDERED: ORPHENADRINE 60 MG/2 ML (NORFLEX) AMP IM ONE (17:45)
[2017-09-04 18:12] VITALS: BP 108/61
== END 2017-09-04 18:12 | disposition home or self-care (01) ==
LOC: EDUNIT# 17:10 → ER 17:12
DX: M41.20 Other idiopathic scoliosis, site unspecified (principal); F90.9 Attention-deficit hyperactivity disorder, unspecified type; F32.9 Major depressive disorder, single episode, unspecified; Z87.81 Personal history of (healed) traumatic fracture; Z90.710 Acquired absence of both cervix and uterus; Z87.01 Personal history of pneumonia (recurrent); Z77.22 Contact with and (suspected) exposure to environmental tobacco smoke (acute) (chronic)
CPT/HCPCS: 99284

== ENCOUNTER 2017-09-26 13:41 | Outpatient (RCR) | payer MEDICAID ==
[~2017-09-26 13:41] MED LIST changes: +CYPR4TAB; +HYDR-757 PO; +MELO7.5T46 PO
== END 2017-10-07 16:25 | disposition home or self-care (01) ==
PROVIDERS: ATTEND Family Medicine
DX: M41.116 Juvenile idiopathic scoliosis, lumbar region (principal)

== ENCOUNTER 2018-05-09 22:47 | Emergency (ER) | payer SELFPAY ==
[~2018-05-09] VITALS: Ht 157.5 cm; Wt 47.6 kg
[~2018-05-09 22:47] MED LIST changes: -HYDR-3812 PO
--- OUTSIDE RECORDS SUMMARY | 2018-05-09 22:53 | XMS REPORT | Continuity of Care Document ---
Author Author Formerly [facility] Address Unknown Phone Unavailable Allergies Active Description Code Type Severity Reaction Onset Reported/Identified Relationship to Patient Clinical Status Yes BACTRIM UNKNOWN OTHER Yes Sulfa (Sulfonamide Antibiotics) Drug Allergy N/A N/A 02/10/2014 Yes Sulfa (Sulfonamide Antibiotics) [id number] Drug Allergy Unknown N/A 2016 Medications There is no data. Problems Date Dx Coded Attending Type Code [...] URIN TRACT INFECTION NOS 03/03/2013 Ot 646.63 INFECTION -ANTEPARTUM 03/03/2013 Ot 646.83 PREG COMPL NEC-ANTEPART 03/03/2013 Ot 682.6 CELLULITIS OF LEG 03/03/2013 Ot 704.8 HAIR DISEASES NEC 03/13/2013 Ot 355.0 SCIATIC NERVE LESION 03/13/2013 Ot 648.73 BONE DISORDER-ANTEPARTUM 03/13/2013 Ot 719.45 JOINT PAIN- PELVIS 03/13/2013 Ot 720.2 SACROILIITIS NEC 03/26/2013 PETE CHACKO DO Ot 784.0 HEADACHE 05/20/2013 MAVERICK MORELAND DO Ot 388.70 OTALGIA NOS 05/20/2013 MAVERICK MORELAND DO Ot 646.83 PREG COMPL NEC-ANTEPART 05/20/2013 OTILIA CANTU, PHI Amador Ot 382.9 OTITIS MEDIA NOS 05/20/2013 OTILIA CANTU, PHI Amador Ot 388.70 OTALGIA NOS 05/20/2013 OTILIA CANTU, [...] VIRGIE Childers Ot 490 BRONCHITIS NOS 07/07/2013 LATA CANTU, VIRGIE Childers Ot 646.83 PREG COMPL NEC-ANTEPART 07/12/2013 TENNILLE MCFADDEN POISING INSPECTOR Ot 646.83 PREG COMPL NEC-ANTEPART 07/12/2013 TENNILLE MCFADDEN POISING INSPECTOR Ot 649.03 TOBACCO USE DISOR COMP PREG/CHILDBIRTH/P 07/12/2013 TENNILLE MCFADDEN POISING INSPECTOR Ot 787.01 NAUSEA WITH VOMITING 07/12/2013 TENNILLE MCFADDEN POISING INSPECTOR Ot 787.91 DIARRHEA 07/21/2013 MAVERICK MORELAND DO Ot 644.03 THRT KATHY LABOR-ANTEPART 08/16/2013 MAVERICK MORELAND DO Ot 623.5 NONINFECT VAG LEUKORRHEA 08/16/2013 MAVERICK MORELAND DO Ot 654.73 ABNORM VAGINA-ANTEPARTUM 08/19/2013 MAVERICK MORELAND DO C Ot 648.73 BONE DISORDER-ANTEPARTUM 08/19/2013 MORELAND MAVERICK Ot 724.2 LUMBAGO 08/30/2013 MORELAND MAVERICK Ot 644.13 THREAT LABOR NEC-ANTEPAR 09/03/2013 MORELAND MAVERICK Ot 287.5 THROMBOCYTOPENIA NOS 09/03/2013 MERLY PERKINSMAVERICK Ot 649.01 TOBACCO USE DISORDER COMP PREG/CHILDBIRT 09/03/2013 MORELANDMAVERICK Smith DO Ot 649.31 COAGULATION DEFECTS COMP PREG/CHILDBIRTH 09/03/2013 MORELAND MAVERICK C Ot V04.81 ND FOR PROPHYLACTIC VACCIN AND INOCULATI 09/03/2013 MORELAND MAVERICK Ot V27.0 DELIVER-SINGLE LIVEBORN 12/09/2013 RICCO PETE PERKINS Ot 842.00 12/09/2013 PETE CHACKO DO Ot 923.20 12/09/2013 RICCO PETE Helton Ot 959.3 12/09/2013 RICCO PETE Helton Ot E000.8 12/09/2013 RICCO PETE PERKINS Ot E849.0 12/09/2013 PETE CHACKO DO Ot E885.9 02/10/2014 DEREK HERRERA MD 309.81 AN PTSD 02/10/2014 DEREK HERRERA MD 314.01 ADHD COMBINED 02/10/2014 AZALIA MEJIA APRN J 309.81 AN PTSD 02/10/2014 ARMANDO MEJIA APRNA J 314.01 ADHD COMBINED 02/10/2014 ARMANDO MEJIA APRNA J 309.81 AN PTSD 02/10/2014 CHRISTIANO MEJIA APRNINDA J 314.01 ADHD COMBINED 02/10/2014 ROBERTO FLOREZ AZALIA J 309.81 AN PTSD 02/10/2014 ARMANDO MEJIA APRNA J 314.01 ADHD COMBINED 02/10/2014 ARMANDO MEJIA APRNA J 309.81 AN PTSD 02/10/2014 ARMANDO MEJIA APRNA J 314.01 ADHD COMBINED 02/10/2014 CHRISTIANO MEJIA APRNINDA J 309.81 AN PTSD 02/10/2014 ARMANDO MEJIA APRNA J 314.01 ADHD COMBINED 02/10/2014 ARMANDO MEJIA APRNA J 309.81 AN PTSD 02/10/2014 AZALIA MEJIA APRN 314.01 ADHD COMBINED 02/10/2014 AZALIA MEJIA APRN [...] ALEJANDRA Lepe DOA K Ot 381.4 03/20/2014 MARIA ALEJANDRA CHACKO DOA K Ot 462 03/20/2014 RICCOMARIA ALEJANDRA Lepe DOA K Ot 465.9 03/20/2014 RICCOMARIA ALEJANDRA Lepe DOA K Ot 599.0 06/24/2014 DENVER HASTINGS [...] 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 02/09/2015 ALICE PHD, ARIANE Childers 300.02 AN GEN ANXIETY 06/04/2015 [...] FORTINO CANTU, JACOBO Helton Ot 682.5 06/23/2015 FORTINO CANTU, JACOBO Helton Ot 041.12 06/23/2015 FORTINO CANTU, JACOBO Helton Ot 682.5 11/11/2015 MORELAND DO, MAVERICK C Ot 618.01 11/11/2015 MORELAND DO, MAVERICK C Ot 618.89 11/11/2015 MORELAND DO, MAVERICK C Ot V72.63 11/11/2015 MORELAND DO, MAVERICK C Ot V74.8 11/11/2015 TENNILLE MCFADDEN POISING INSPECTOR Ot S99.922A UNSPECIFIED INJURY OF LEFT FOOT, INITIAL 11/11/2015 TENNILLE MCFADDEN POISING INSPECTOR Ot Z53.21 PROC/TRTMT NOT CRD OUT D/T [...] 06/28/2016 ADAN HEAD MD Ot Z79.899 OTHER SENIOR LIVING (CURRENT) DRUG THERAPY 06/28/2016 ADAN HEAD MD Ot Z90.710 ACQUIRED ABSENCE OF BOTH CERVIX AND UTER 06/30/2016 ADAN HEAD MD Ot O92.79 OTHER DISORDERS OF 06/30/2016 ADAN HEAD MD Ot R10.84 GENERALIZED ABDOMINAL PAIN 06/30/2016 ADAN HEAD MD Ot Z79.899 OTHER FINANCIAL SYSTEMS MANAGER (CURRENT) DRUG THERAPY 06/30/2016 ADAN HEAD MD Ot Z90.710 ACQUIRED ABSENCE OF BOTH CERVIX AND UTER 07/19/2016 ADAN HEAD MD Ot O92.79 OTHER DISORDERS OF 07/19/2016 ADAN HEAD MD Ot R10.84 GENERALIZED ABDOMINAL PAIN 07/19/2016 ADAN HEAD MD Ot Z79.899 OTHER SENIOR LIVING (CURRENT) DRUG THERAPY 07/19/2016 ADAN HEAD MD Ot Z90.710 ACQUIRED ABSENCE OF BOTH CERVIX AND UTER 01/23/2017 MAVERICK MORELAND DO Ot 618.01 CYSTOCELE, MIDLINE 01/23/2017 MAVERICK MORELAND DO Ot 618.89 OTHER SPECIFIED GENITAL PROLAPSE 01/23/2017 MAVERICK MORELAND DO Ot V72.63 PRE-PROCEDURAL LABORATORY EXAMINATION 01/23/2017 MAVERICK MORELAND DO Ot V74.8 SCREEN-BACTERIAL DIS NEC 01/23/2017 PETE CHACKO DO Ot F17.210 NICOTINE DEPENDENCE, CIGARETTES, UNCOMPL 01/23/2017 PETE CHACKO DO Ot N39.0 URINARY TRACT INFECTION, SITE NOT SPECIF 01/23/2017 RICCO DO, PETE K Ot R30.0 DYSURIA 01/23/2017 RICCO DO, PETE K Ot Z90.710 ACQUIRED ABSENCE OF BOTH CERVIX AND UTER 01/24/2017 RICCO DO, PETE K Ot F17.210 NICOTINE DEPENDENCE, CIGARETTES, UNCOMPL 01/24/2017 RICCO DO, PETE K Ot N39.0 URINARY TRACT INFECTION, SITE NOT SPECIF 01/24/2017 RICCO DO, PETE K Ot R30.0 DYSURIA 01/24/2017 RICCO DO, PETE K Ot Z90.710 ACQUIRED ABSENCE OF BOTH CERVIX AND UTER 01/29/2017 RICCO DO, PETE K Ot F17.210 NICOTINE DEPENDENCE, CIGARETTES, UNCOMPL 01/29/2017 RICCO DO, PETE K Ot N39.0 URINARY TRACT INFECTION, SITE NOT SPECIF 01/29/2017 RICCO DO, PETE K Ot R30.0 DYSURIA 01/29/2017 RICCO DO, PETE K Ot Z90.710 ACQUIRED ABSENCE OF BOTH CERVIX AND UTER 01/30/2017 MORELAND DO, MAVERICK C Ot R10.2 PELVIC AND PERINEAL PAIN 01/31/2017 MORELAND DO, MAVERICK C Ot N39.0 URINARY TRACT INFECTION, SITE NOT SPECIF 01/31/2017 MORELAND DO, MAVERICK C Ot N39.3 STRESS INCONTINENCE (FEMALE) (MALE) 01/31/2017 MORELAND DO, MAVERICK C Ot N81.9 FEMALE GENITAL PROLAPSE, UNSPECIFIED 01/31/2017 MORELAND DO, MAVERICK C Ot N83.201 UNSPECIFIED OVARIAN CYST, RIGHT SIDE 01/31/2017 MORELAND DO MAVERICK C Ot Z01.812 ENCOUNTER FOR PREPROCEDURAL LABORATORY E 01/31/2017 MORELAND DO MAVERICK C Ot Z11.2 ENCOUNTER FOR SCREENING FOR OTHER BACTER 02/01/2017 MORELAND DO, MAVERICK C Ot N39.0 URINARY TRACT INFECTION, SITE NOT SPECIF 02/01/2017 MORELAND DO, MAVERICK C Ot N39.3 STRESS INCONTINENCE (FEMALE) (MALE) 02/01/2017 MORELAND DO, MAVERICK C Ot N81.9 FEMALE GENITAL PROLAPSE, UNSPECIFIED 02/01/2017 MORELAND DO, MAVERICK C Ot N83.201 UNSPECIFIED OVARIAN CYST, RIGHT SIDE 02/01/2017 MORELAND DO MAVERICK C Ot Z01.812 ENCOUNTER FOR PREPROCEDURAL LABORATORY E 02/01/2017 SERVANDO MORELAND DOA C Ot Z11.2 ENCOUNTER FOR SCREENING FOR OTHER BACTER 02/06/2017 MORELAND DO, MAVERICK C Ot D27.0 BENIGN NEOPLASM OF RIGHT OVARY 02/06/2017 MORELAND DO, MAVERICK C Ot L83 ACANTHOSIS NIGRICANS 02/06/2017 MORELAND DO, MAVERICK C Ot N39.3 STRESS INCONTINENCE (FEMALE) (MALE) 02/06/2017 MORELAND DO MAVERICK C Ot N80.3 ENDOMETRIOSIS OF PELVIC PERITONEUM 02/06/2017 MORELAND DO, MAVERICK C Ot N81.10 CYSTOCELE, UNSPECIFIED 02/14/2017 MORELAND DO, MAVERICK C Ot R10.2 PELVIC AND PERINEAL PAIN 03/06/2017 MORELAND DO MAVERICK C Ot D27.0 BENIGN NEOPLASM OF RIGHT OVARY 03/06/2017 MORELAND DO, MAVERICK C Ot L83 ACANTHOSIS NIGRICANS 03/06/2017 MORELAND DO MAVERICK C Ot N39.3 STRESS INCONTINENCE (FEMALE) (MALE) 03/06/2017 MORELAND DO, MAVERICK C Ot N80.3 ENDOMETRIOSIS OF PELVIC PERITONEUM 03/06/2017 MORELAND DO, MAVERICK C Ot N81.10 CYSTOCELE, UNSPECIFIED 08/30/2017 MORELAND DO, MAVERICK C Ot 618.01 CYSTOCELE, MIDLINE 08/30/2017 MORELAND DO, MAVERICK C Ot 618.89 OTHER SPECIFIED GENITAL PROLAPSE 08/30/2017 MORELAND DO, MAVERICK C Ot V72.63 PRE-PROCEDURAL LABORATORY EXAMINATION 08/30/2017 MORELAND DO MAVERICK C Ot V74.8 SCREEN-BACTERIAL DIS NEC 08/30/2017 MORELAND DO, MAVERICK C Ot R10.2 PELVIC AND PERINEAL PAIN 09/02/2017 PAT CANTU, ALEJANDRO Weber Ot 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, THORACOLU 09/04/2017 TENNILLE MCFADDEN APRN Ot F32.9 MAJOR DEPRESSIVE DISORDER, SINGLE EPISOD 09/04/2017 TENNILLE MCFADDEN APRN Ot F90.9 ATTENTION-DEFICIT HYPERACTIVITY DISORDER 09/04/2017 TENNILLE MCFADDEN APRN Ot M41.20 OTHER IDIOPATHIC SCOLIOSIS, SITE UNSPECI 09/04/2017 TENNILLE MCFADDEN APRN Ot M54.9 DORSALGIA, UNSPECIFIED 09/04/2017 TENNILLE MCFADDEN APRN Ot Z77.22 CNTCT W AND EXPSR TO ENVIRON TOBACCO SMO 09/04/2017 TENNILLE MCFADDEN APRN Ot Z87.01 PERSONAL HISTORY OF PNEUMONIA (RECURRENT 09/04/2017 TENNILLE MCFADDEN APRN Ot Z87.81 PERSONAL HISTORY OF (HEALED) TRAUMATIC F 09/04/2017 TENNILLE MCFADDEN APRN Ot Z90.710 ACQUIRED ABSENCE OF BOTH CERVIX AND UTER 09/06/2017 TENNILLE MCFADDEN APRN Ot F32.9 MAJOR DEPRESSIVE DISORDER, SINGLE EPISOD 09/06/2017 TENNILLE MCFADDEN APRN Ot F90.9 ATTENTION-DEFICIT HYPERACTIVITY DISORDER 09/06/2017 TENNILLE MCFADDEN APRN Ot M41.20 OTHER IDIOPATHIC SCOLIOSIS, SITE UNSPECI 09/06/2017 TENNILLE MCFADDEN APRN Ot M54.9 DORSALGIA, UNSPECIFIED 09/06/2017 TENNILLE MCFADDEN APRN Ot Z77.22 CNTCT W AND EXPSR TO ENVIRON TOBACCO SMO 09/06/2017 TENNILLE MCFADDEN APRN Ot Z87.01 PERSONAL HISTORY OF PNEUMONIA (RECURRENT 09/06/2017 TENNILLE MCFADDEN APRN Ot Z87.81 PERSONAL HISTORY OF (HEALED) TRAUMATIC F 09/06/2017 TENNILLE MCFADDEN APRN Ot Z90.710 ACQUIRED ABSENCE OF BOTH CERVIX AND UTER 09/11/2017 MAVERICK MORELAND DO C Ot 618.01 CYSTOCELE, MIDLINE 09/11/2017 MERLY PERKINS MAVERICK C Ot 618.89 OTHER SPECIFIED GENITAL PROLAPSE 09/11/2017 MAVERICK MORELAND DO Ot V72.63 PRE-PROCEDURAL LABORATORY EXAMINATION 09/11/2017 MERLY PERKINS MAVERICK C Ot V74.8 SCREEN-BACTERIAL DIS NEC 09/11/2017 MERLY PERKINS MAVERICK C Ot R10.2 PELVIC AND PERINEAL PAIN 09/11/2017 PAT CANTU, ALEJANDRO Weber Ot 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, THORACOLU 09/12/2017 TENNILLE MCFADDEN APRN Ot F32.9 MAJOR DEPRESSIVE DISORDER, SINGLE EPISOD 09/12/2017 TENNILLE MCFADDEN APRN Ot F90.9 ATTENTION-DEFICIT HYPERACTIVITY DISORDER 09/12/2017 TENNILLE MCFADDEN APRN Ot M41.20 OTHER IDIOPATHIC SCOLIOSIS, SITE UNSPECI 09/12/2017 TENNILLE MCFADDEN APRN Ot M54.9 DORSALGIA, UNSPECIFIED 09/12/2017 TENNILLE MCFADDEN APRN Ot Z77.22 CNTCT W AND EXPSR TO ENVIRON TOBACCO SMO 09/12/2017 TENNILLE MCFADDEN APRN Ot Z87.01 PERSONAL HISTORY OF PNEUMONIA (RECURRENT 09/12/2017 TENNILLE MCFADDEN APRN Ot Z87.81 PERSONAL HISTORY OF (HEALED) TRAUMATIC F 09/12/2017 TENNILLE MCFADDEN APRN Ot Z90.710 ACQUIRED ABSENCE OF BOTH CERVIX AND UTER 09/12/2017 PAT CANTU, ALEJANDRO Weber Ot 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, LUMBAR RE 09/13/2017 PAT CANTU, ALEJANDRO Weber Ot 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, THORACOLU 09/17/2017 PAT CANTU, ALEJANDRO Weber Ot 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, LUMBAR RE 10/07/2017 PAT CANTU, ALEJANDRO Weber Ot 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, LUMBAR RE 04/06/2018 Ashleigh French 461.9 ACUTE SINUSITIS, UNSPECIFIED 04/06/2018 Ashleigh French 462 ACUTE PHARYNGITIS 04/06/2018 Ashleigh French J01.90 ACUTE SINUSITIS, UNSPECIFIED 04/06/2018 Ashleigh French J02.9 ACUTE PHARYNGITIS, UNSPECIFIED Procedures Code Description Performed By Performed On 73.4 MEDICAL INDUCTION LABOR 09/01/2013 73.59 MANUAL ASSIST DELIV NEC 09/01/2013 49952 PSYTX PT&/FAMILY 45 MINUTES 03/09/2015 45991 PSYTX PT&/FAMILY 45 MINUTES 03/23/2015 Results Test Result Range Complete urinalysis with reflex to culture - 06/28/16 01:14 Urine color determination YELLOW NRG Urine clarity determination CLEAR NRG Urine pH measurement by test strip 8 5-9 Specific gravity of urine by test strip 1.015 1.016- 1.022 Urine protein assay by test strip, semi-quantitative [...] 01:19 Blood leukocytes automated count (number/volume) 10.5 10*3/uL 4.3-11.0 Blood erythrocytes automated count (number/volume) 4.27 10*6/uL 4.35-5.85 Venous blood hemoglobin measurement (mass/volume) 12.8 [...] Automated blood platelet mean volume measurement 11.2 [foz_us] 7.4-10.4 Automated blood neutrophils/100 leukocytes 59 % [...] Serum or plasma sodium measurement (moles/volume) 140 mmol/L 135-145 Serum or plasma potassium measurement (moles/volume) 3.9 mmol/L 3.6-5.0 Serum or plasma chloride measurement (moles/volume) 106 mmol/L 98-107 Carbon dioxide 26 mmol/L 21-32 Serum or plasma anion gap determination (moles/volume) 8 mmol/L 5-14 Serum or plasma urea nitrogen measurement (mass/volume) 17 mg/dL 7-18 Serum or plasma creatinine measurement (mass/volume) 0.74 mg/dL 0.60-1.30 Serum or plasma urea nitrogen/creatinine mass [...] plasma albumin measurement (mass/volume) 4.8 g/dL 3.2-4.5 Genital Culture, Routine - 01/21/17 10:21 Genital Culture, Routine Note Complete urinalysis with reflex to culture - 01/23/17 00:39 Urine color determination YELLOW NRG Urine clarity determination VERY CLOUDY NRG Urine pH measurement by test strip 7 5-9 Specific gravity of urine by test strip 1.015 1.016- 1.022 Urine protein assay by test strip, semi-quantitative [...] culture - 01/23/17 00:39 Bacterial urine culture [id number] NRG COLONY COUNT >100,000/ML NRG FTX;REPORTABLE SENSITIVITY REPORTED 01/23/17 8:40 NR Bacterial susceptibility panel - 01/23/17 00:39 Gentamicin susceptibility test by minimum inhibitory concentration < = NRG Trimethoprim/sulfamethoxazole susceptibility test by minimum inhibitoryconcentration <= NRG Ampicillin susceptibility test by minimum inhibitory concentration > = NRG Tobramycin susceptibility test by minimum inhibitory concentration < = NRG Cefazolin susceptibility test by minimum inhibitory concentration < = NRG Ceftriaxone susceptibility test by minimum inhibitory concentration <= NRG Ampicillin/sulbactam susceptibility test by minimum inhibitory concentration 16 NRG Piperacillin/tazobactam susceptibility test by minimum inhibitory concentration <= NRG Ciprofloxacin susceptibility test by minimum inhibitory concentration <= NRG Meropenem susceptibility test by minimum inhibitory concentration < = NRG Nitrofurantoin susceptibility test by minimum inhibitory concentration >= NRG Aztreonam susceptibility test by minimum inhibitory concentration < = NRG Extended spectrum beta lactamase (ESBL) producing bacteria susceptibility test by minimum inhibitory concentration - NRG Complete urinalysis with reflex to culture - 01/31/17 14:00 Urine color determination YELLOW NRG Urine clarity determination CLEAR NRG Urine pH measurement by test strip 7 5-9 Specific gravity of urine by test strip 1.010 1.016- 1.022 Urine protein assay by test strip, semi-quantitative [...] 14:10 Blood leukocytes automated count (number/volume) 6.8 10*3/uL 4.3-11.0 Blood erythrocytes automated count (number/volume) 5.29 10*6/uL 4.35-5.85 Venous blood hemoglobin measurement (mass/volume) 15.5 [...] Automated blood platelet mean volume measurement 12.7 [foz_us] 7.4-10.4 Automated blood neutrophils/100 leukocytes 47 % [...] Staphylococcus aureus (MRSA) screening culture NEG NRG Urine beta human chorionic gonadotropin (hCG) measurement - 02/05/17 07:10 Urine beta human chorionic gonadotropin (hCG) measurement NEGATIVE NEGATIVE Encounters ACCT No. Visit Date/Time Discharge Status Pt. Type Provider Facility Loc./Unit Complaint [id number] 03/23/2015 08:50:00 03/23/2015 23:59:59 CLS Outpatient ARIANE JENKINS PHD [id number] 03/09/2015 08:47:00 03/09/2015 23:59:59 CLS Outpatient ARIANE JENKINS PHD [id number] 03/03/2015 08:55:00 03/03/2015 23:59:59 CLS Outpatient AZALIA MEJIA APRN [id number] 01/27/2015 13:56:00 01/27/2015 23:59:59 CLS Outpatient AZALIA MEJIA APRN [id number] 11/04/2014 08:53:00 11/04/2014 23:59:59 CLS Outpatient AZALIA MEJIA APRN [id number] 11/04/2014 08:53:00 11/04/2014 23:59:59 CLS Outpatient AZALIA MEJIA APRN [id number] 05/26/2014 11:34:00 05/26/2014 23:59:59 CLS Outpatient AZALIA MEJIA APRN [id number] 04/22/2014 12:48:00 04/22/2014 23:59:59 CLS Outpatient AZALIA MEJIA APRN [id number] 03/11/2014 12:49:00 03/11/2014 23:59:59 CLS Outpatient AZALIA MEJIA APRN [id number] 02/10/2014 13:48:00 02/10/2014 23:59:59 CLS Outpatient DEREK HERRERA MD [id number] 02/10/2014 13:48:00 02/10/2014 23:59:59 CLS Outpatient AZALIA MEJIA APRN [id number] 04/06/2018 09:20:00 04/06/2018 10:30:00 [id number] 09/26/2017 13:41:00 10/07/2017 16:25:00 DIS Outpatient ALEJANDRO STEWART MD [facility] REHAB SCOLIOSIS [id number] 09/04/2017 17:12:00 09/04/2017 18:12:00 DIS Emergency TENNILLE MCFADDEN APRN [facility] ER BACK PAIN [id number] 08/30/2017 08:08:00 08/30/2017 23:59:59 CLS Outpatient PAT CANTU, ALEJANDRO Weber [facility] RAD M41.116 [id number] 02/05/2017 06:50:00 02/06/2017 10:50:00 DIS Outpatient MAVERICK MORELAND DO [facility] SDC RIGHT OVARIAN CYST [id number] 01/31/2017 12:57:00 01/31/2017 14:43:00 DIS Outpatient MAVERICK MORELAND DO [facility] PREOP RIGHT OVARIAN CYST [id number] 01/28/2017 15:03:00 01/28/2017 23:59:59 CLS Outpatient MAVERICK MORELAND DO [facility] RAD ACUTE PELVIC PAIN [id number] 01/23/2017 00:21:00 01/23/2017 01:26:00 DIS Emergency PETE CHACKO DO [facility] ER VAGINAL PROBLEMS/PAIN [id number] 06/28/2016 00:36:00 06/28/2016 03:22:00 DIS Emergency SONIDO CANTU, ADAN Macedo [facility] ER OVARY HURTS ON RT SIDE ,BREASTS SWOLLEN [id number] 11/11/2015 21:23:00 11/11/2015 22:23:00 DIS Emergency TENNILLE MCFADDEN APRN [facility] ER L FOOT INJ [id number] 06/08/2015 11:46:00 06/08/2015 12:54:00 DIS Emergency JACOBO FREITAS MD [facility] ER ABSCESS RECHECK [id number] 06/04/2015 05:10:00 06/04/2015 05:57:00 DIS Emergency PETE CHACKO DO [facility] ER ABCSESS ON BUTTOCKS [id number] 12/21/2014 06:05:00 12/22/2014 11:05:00 DIS Outpatient MAVERICK MORELAND DO [facility] SDC PELVIC PROLAPSE; CYSTOCELE [id number] 12/13/2014 11:47:00 12/13/2014 23:59:59 CLS Outpatient MAVERICK MORELAND DO [facility] PREOP PELVIC PROLAPSE; CYSTOCELE [id number] 12/09/2014 17:39:00 12/09/2014 18:56:00 DIS Emergency DENVER HASTINGS [facility] ER NECK PAIN, RESTRICTED MOVEMENT [id number] 10/14/2014 19:30:00 10/16/2014 13:20:00 DIS Inpatient MAVERICK MORELAND DO [facility] WS [id number] 10/10/2014 20:06:00 10/11/2014 07:45:00 DIS Outpatient [facility] [id number] 06/24/2014 19:30:00 06/24/2014 21:16:00 DIS Emergency DENVER HASTINGS [facility] ER [id number] 03/20/2014 19:02:00 03/20/2014 21:07:00 DIS Emergency PETE CHACKO DO [facility] ER [id number] 02/15/2014 19:20:00 02/16/2014 00:55:00 DIS Emergency TENNILLE MCFADDEN APRN [facility] ER [id number] 01/12/2014 12:26:00 01/12/2014 23:59:59 CLS Outpatient [id number] 12/09/2013 11:17:00 12/09/2013 12:56:00 DIS Emergency RICCO MARIA ALEJANDRA PERKINSA Danie [facility] ER [id number] 09/01/2013 05:59:00 09/03/2013 11:15:00 DIS Inpatient MAVERICK MORELAND DO [facility] WS INDUCTION [id number] 08/30/2013 01:02:00 08/30/2013 02:50:00 DIS Outpatient MAVERICK MORELAND DO [facility] LEAKING FLUID, CONTRACTION [id number] 08/19/2013 18:32:00 08/19/2013 20:30:00 DIS Outpatient MAVERICK MORELAND DO [facility] PELVIC PAIN [id number] 08/16/2013 00:22:00 08/16/2013 01:50:00 DIS Outpatient MAVERICK MORELAND DO [facility] LEAKING FLUID [id number] 07/21/2013 22:37:00 07/21/2013 23:35:00 DIS Outpatient MAVERICK MORELAND DO [facility] CONTRACTIONS [id number] 07/11/2013 23:42:00 07/12/2013 01:09:00 DIS Emergency TENNILLE MCFADDEN APRN [facility] ER VOMITING [id number] 07/07/2013 18:30:00 07/07/2013 19:07:00 DIS Emergency VIRGIE GUIDO MD [facility] ER COUGH,CONGESTION [id number] 06/28/2013 19:38:00 06/28/2013 21:48:00 DIS Outpatient MAVERICK MORELAND DO [facility] ABD PAIN, CONTRACTIONS [id number] 06/22/2013 14:57:00 06/22/2013 23:59:59 CLS Outpatient [id number] 06/14/2013 00:52:00 06/15/2013 05:35:00 DIS Outpatient MAVERICK MORELAND DO [facility] FELL; NO MOVEMENT [id number] 06/15/2013 00:38:00 06/15/2013 01:15:00 DIS Outpatient MAVERICK MORELAND DO [facility] CONTRACTIONS [id number] 05/20/2013 21:09:00 05/20/2013 22:40:00 DIS Emergency OTILIA CANTU, PHI Amador [facility] ER EAR PAIN,CRAMPING 24 WEEKS [id number] 05/20/2013 20:30:00 05/20/2013 21:20:00 DIS Outpatient MAVERICK MORELAND DO [facility] CRAMPING,WEAKNESS,NAUSEA [id number] 04/06/2013 18:41:00 04/06/2013 23:59:59 CLS Outpatient [id number] 03/26/2013 12:20:00 03/26/2013 14:32:00 DIS Emergency PETE CHACKO DO [facility] ER HEAD PAIN [id number] 01/31/2017 13:18:00 Document Registration [id number] 01/31/2017 13:18:00 Document Registration [id number] 01/27/2015 18:07:00 Document Registration [id number] 10/10/2014 20:06:00 Document Registration [id number] 10/10/2014 20:06:00 Document Registration [id number] 03/13/2013 19:06:00 Document Registration [id number] 03/03/2013 12:28:00 Document Registration [id number] 03/02/2013 14:10:00 Document Registration [id number] 02/09/2013 22:32:00 Document Registration [id number] 01/27/2013 13:00:00 Document Registration [id number] 08/18/2012 10:22:00 Document Registration [id number] 08/13/2012 19:40:00 Document Registration [id number] 05/30/2012 21:05:00 Document Registration [id number] 01/22/2012 09:05:00 Document Registration [id number] 08/03/2011 17:42:00 Document Registration [id number] 07/22/2011 14:33:00 Document Registration [id number] 06/06/2011 08:21:00 Document Registration [id number] 05/19/2011 19:23:00 Document Registration [id number] 05/07/2011 12:11:00 Document Registration [id number] 04/21/2011 09:41:00 Document Registration [id number] 04/11/2011 22:11:00 Document Registration [id number] 04/08/2011 14:15:00 Document Registration [id number] 04/08/2011 13:15:00 Document Registration [id number] 03/05/2011 16:38:00 Document Registration [id number] 02/18/2011 13:39:00 Document Registration [id number] 02/08/2011 21:38:00 Document Registration [id number] 01/18/2011 12:00:00 Document Registration [id number] 12/19/2010 17:27:00 Document Registration [id number] 10/15/2010 11:59:00 Document Registration [id number] 09/24/2010 20:31:00 Document Registration [id number] 08/31/2010 05:58:00 Document Registration [id number] 08/28/2010 13:39:00 Document Registration [id number] 08/18/2010 07:43:00 Document Registration [id number] 07/07/2010 08:37:00 Document Registration [id number] 07/03/2010 08:19:00 Document Registration [id number] 06/11/2010 13:25:00 Document Registration [id number] 01/14/2018 10:20:00 01/14/2018 23:59:59 [facility] Outpatient JUANCARLOS HUERTA LAC [facility] [id number] 01/24/2017 11:08:00 Document Registration
[2018-05-10] MEDS ORDERED: NF-ADDXR30 (00:02)
[2018-05-10] MEDS ORDERED: RABIES IMMUNE GLOBULIN 150 UNIT/ML 10 ML (HYPERRAB) IM ONE (00:30)
[2018-05-10] MEDS ORDERED: RABIES VACCINE HUMAN DIPL CELL 1 ML/2.5 UNITS SYR IM ONE (00:30)
--- NOTE | 2018-05-10 00:58 | ED General ---
General Chief Complaint: Bite-Animal/Human/Insect Stated Complaint: L HAND PAIN Nursing Triage Note: CAT BITE LEFT HAND. (FAMILY PET) Nursing Sepsis Screen: No Definite Risk Source of Information: Patient Exam Limitations: No Limitations History of Present Illness Date Seen by Provider: May 10, 2018 Time Seen by Provider: 00:13 Initial Comments This 27-year-old young lady presents to the emergency room with multiple Bites to the left hand. She reports her cat recently had dense and is therefore protective. The cat has not been vaccinated for rabies and has been exposed to the outdoors. Patient believes her cats change in behavior is simply due to the presence of kittens. She states the cat was loving again after the incident. She has multiple puncture wounds on the left hand that are painful. She does not believe she was bitten hard enough to cause fractures. She is not up-to-date on her tetanus immunizations. Allergies and Home Medications Allergies Coded Allergies: Sulfa (Sulfonamide Antibiotics) (Verified Allergy, Unknown, 01/31/17) Home Medications Amoxicillin/Potassium Clav 1 Each Tablet, 1 EACH PO BID Prescribed by: PHI KILGORE on 05/10/18 0101 Patient Home Medication List Home Medication List Reviewed: Yes Review of Systems Constitutional: no symptoms reported EENTM: no symptoms reported Respiratory: no symptoms reported Cardiovascular: no symptoms reported Gastrointestinal: no symptoms reported Genitourinary: no symptoms reported : No Musculoskeletal: see HPI Skin: see HPI Psychiatric/Neurological: No Symptoms Reported Hematologic/Lymphatic: No Symptoms Reported Past Czrxfgs-Uywvdc-Itstde Hx Patient Social History Alcohol Use: Rarely Uses Recreational Drug Use: No Smoking Status: Current Everyday Smoker Type Used: Cigarettes 2nd Hand Smoke Exposure: Yes Recent Foreign Travel: No Contact w/Someone Who Travel: No Recent Infectious Disease Expo: No Recent Hopitalizations: No Immunizations Up To Date Tetanus Booster (TDap): Unknown PED Vaccines UTD: No Date of Influenza Vaccine: Oct 14, 2014 Seasonal Allergies Seasonal Allergies: No Past Medical History Surgeries: Yes ( RECTOCELE, ABSCESS I&D'S) Gallbladder, Hysterectomy, Rectal Respiratory: No Pneumonia Cardiac: No Neurological: No : No Reproductive Disorders: Yes (GENITAL PROLAPSE) 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 Sexually Transmitted Disease: No HIV/AIDS: No Genitourinary: Yes Bladder Infection Gastrointestinal: No Musculoskeletal: Yes Scoliosis, Fractures Endocrine: No HEENT: No Loss of Vision: Bilateral Hearing Impairment: Denies Cancer: No Psychosocial: Yes ADD/ADHD, Depression Integumentary: Yes (MRSA, ABSCESSES,SKIN TAG) Blood Disorders: No Adverse Reaction/Blood Tranf: No Family Medical History Abdominal aortic aneurysm Grandfather, Onset:60 years & older Arthritis 19 MOTHER, Onset:30's - 40 Seizure disorder 19 MOTHER, Onset:Childhood No Family History of: AIDS Noel's disease Alcoholism Alzheimer's disease Aphasia Asthma Cancer of mouth Cardiovascular disease Cataracts Colon cancer Completed stroke Congenital disease Congenital heart disease Coronary thrombosis Cystic fibrosis Deafness or hearing loss Dementia Diabetes mellitus Drug abuse Dysphasia Fibrocystic disease of breast Gastroenteritis Glaucoma Headache disorder Hypercholesterolemia Hypertension Infertility Kidney disease Myocardial infarction Neoplasm Not obtainable due to adoption Osteoporosis Parkinson's disease Prostate cancer Psychosocial problem Respiratory disorder Severe allergy Thyroid disease Tuberculosis Visual disorder Physical Exam Vital Signs Vital Signs - First Documented 05/10/18 00:00 Temp 97.8 Pulse 82 Resp 18 B/P (MAP) 100/82 (88) Pulse Ox 100 O2 Delivery Room Air Capillary Refill : Less Than 3 Seconds General Appearance: No Apparent Distress, WD/WN, Thin HEENT: PERRL/EOMI, Normal ENT Inspection Extremity: Other (Multiple puncture wounds on the left hand. Pain with range of motion and palpation. No apparent tendon dysfunction. 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 Skin: Normal Color, Warm/Dry, Other (Puncture wounds on left hand) Progress/Results/Core Measures Suspected Sepsis Recent Fever Within 48 Hours: No Infection Criteria Present: None New/Unexplained Altered Menta: No Sepsis Screen: No Definite Risk SIRS Temperature:97.8 Pulse: 82 Respiratory Rate: 18 Blood Pressure 100 /82 Mean: 88 Results/Orders My Orders Orders - PHI BINGHAM MD Rabies Vaccine Human Dipl Cell (Rabavert (05/10/18 00:30) Rabies Immune Globulin/Pf Inj (Hyperrab (05/10/18 00:30) Amoxicillin/Clavulanate Tablet (Augmenti (05/10/18 01:00) Dipht,Pertuss(Acell),Tet Adult (Boostrix (05/10/18 01:00) Vital Signs/I&O Capillary Refill : Less Than 3 Seconds Blood Pressure Mean: 88 Progress Note : Progress Note Risks and benefits of rabies vaccination and Ig administration were discussed. Patient is in the low risk category given the exposure. Cat is also contained at this time and can be observed. Patient ultimately elected to forego the rabies vaccination and Ig treatment. She communicates understanding of the risks and benefits. She did receive a tetanus booster and her first dose of Augmentin. Departure Impression Primary Impression: Cat bite Qualified Codes: W55.01XA - Bitten by cat, initial encounter Disposition: HOME, SELF-CARE Condition: Improved Departure-Patient Inst. Decision time for Depature: 00:59 Referrals: NO,LOCAL PHYSICIAN (PCP/Family) Primary Care Physician Patient Instructions: Animal Bites (DC) Add. Discharge Instructions: Complete your antibiotic as prescribed. Return to care if you notice signs of infection such as increasing redness, puslike drainage, fever, etc. Keep your cat quarantined for at least 10 days and notify animal control and your insulation helper if you notice any changes in behavior. Keep the cat away from children until you know she is safe. You may take ibuprofen up to 400 mg every 6 hours as needed for pain. Add Tylenol (acetaminophen) up to 650 mg every 6 hours as needed for additional pain relief. All discharge instructions reviewed with patient and/or family. Voiced understanding. Scripts Amoxicillin/Potassium Clav (Augmentin 500-125 Tablet) 1 Each Tablet 1 EACH PO BID, #20 TAB Prov: PHI BINGHAM MD 05/10/18 PHI BINGHAM MD May 10, 2018 00:58
[2018-05-10] MEDS ORDERED: AUGMENTIN 500 MG TAB (AMOXICILLIN/CLAVULANATE) PO ONE (01:00)
[2018-05-10] MEDS ORDERED: TETANUS,DIPTH,PERTUSS P/F (BOOSTRIX) 0.5 ML VIAL IM ONE (01:00)
[2018-05-10] MEDS ORDERED: AMOX-355 PO (01:01)
[2018-05-10 01:15] VITALS: BP 100/82
== END 2018-05-10 01:15 | disposition home or self-care (01) ==
LOC: EDUNIT# 22:47 → ER 22:49
DX: S61.452A Open bite of left hand, initial encounter (principal); F90.9 Attention-deficit hyperactivity disorder, unspecified type; F32.9 Major depressive disorder, single episode, unspecified; Z87.2 Personal history of diseases of the skin and subcutaneous tissue; F17.210 Nicotine dependence, cigarettes, uncomplicated; Z90.710 Acquired absence of both cervix and uterus; Z87.01 Personal history of pneumonia (recurrent); Z87.448 Personal history of other diseases of urinary system; Z87.81 Personal history of (healed) traumatic fracture; Z88.2 Allergy status to sulfonamides; Z20.3 Contact with and (suspected) exposure to rabies; Z23 Encounter for immunization; W55.01XA Bitten by cat, initial encounter
CPT/HCPCS: 90471; 90715; 99284

== ENCOUNTER 2018-06-14 21:53 | Emergency (ER) | payer SELFPAY ==
[~2018-06-14] VITALS: Ht 157.5 cm; Wt 47.6 kg
[~2018-06-14 21:53] MED LIST changes: +AMOX-355 PO; +CLON0.5T13; +CLON0.5T13 PO; -CLON0.5T3; -CLON0.5T3 PO; -CYPR4TAB; +CYPR4TAB41; +NF-ADDXR30
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
[2018-06-14] MEDS ORDERED: HYDR-757 PO (22:08)
[2018-06-14] MEDS ORDERED: RX-HYDROCODONE/APAP 5/325 MG #4 TAB PK PO PRN (22:15)
[2018-06-14 22:54] VITALS: BP 112/62
--- NOTE | 2018-06-15 08:08 | Diagnostic Imaging Report ---
INDICATION: Wrist pain. Three views were obtained. FINDINGS: The alignment is normal. There is no fracture or dislocation. The soft tissues are unremarkable. IMPRESSION: No acute fracture or dislocation Dictated by: Dictated on workstation # [id number]
--- NOTE | 2018-06-15 08:09 | Diagnostic Imaging Report ---
INDICATION: Pain. Three views were obtained. FINDINGS: The alignment is normal. There is no fracture or dislocation. The soft tissues are unremarkable. There is no joint effusion. IMPRESSION: No acute fracture or dislocation Dictated by: Dictated on workstation # [id number]
== END 2018-06-14 22:55 | disposition home or self-care (01) ==
LOC: EDUNIT# 21:53 → ER 21:56
DX: S62.92XA Unspecified fracture of left hand, initial encounter for closed fracture (principal); F32.9 Major depressive disorder, single episode, unspecified; F90.9 Attention-deficit hyperactivity disorder, unspecified type; Z88.2 Allergy status to sulfonamides; Z77.22 Contact with and (suspected) exposure to environmental tobacco smoke (acute) (chronic); Z90.710 Acquired absence of both cervix and uterus; V18.0XXA Pedal cycle driver injured in noncollision transport accident in nontraffic accident, initial encounter
CPT/HCPCS: 73080; 73110

== ENCOUNTER 2018-11-06 09:00 | Emergency (ER) | payer SELFPAY ==
[~2018-11-06] VITALS: Ht 157.5 cm; Wt 56.7 kg
[~2018-11-06 09:00] MED LIST changes: +HYDR-4226 PO; -HYDR-757 PO
[2018-11-06] MEDS ORDERED: MINO100C2 PO (10:50)
--- NOTE | 2018-11-06 10:50 | ED Integumentary General ---
General Chief Complaint: Skin/Wound Problems Stated Complaint: R UPPER LEG WOUND Nursing Triage Note: Pt has small abcess to R upper thigh Source: patient Exam Limitations: no limitations History of Present Illness Date Seen by Provider: Nov 06, 2018 Time Seen by Provider: 10:47 Initial Comments To ER with a small abscess to the right upper anterior thigh. This started yesterday. No fevers or chills. Timing/Duration: yesterday Severity: moderate Location: extremities Possible Cause: no cause identified Allergies and Home Medications Allergies Coded Allergies: Sulfa (Sulfonamide Antibiotics) (Verified Allergy, Unknown, 01/31/17) Home Medications Amoxicillin/Potassium Clav 1 Each Tablet, 1 EACH PO BID Prescribed by: PHI KILGORE on 05/10/18 0101 Hydrocodone/Acetaminophen 1 Each Tablet, 1 EACH PO Q4H PRN for PAIN-MODERATE TO SEVERE Prescribed by: TENNILLE MCFADDEN on 06/14/18 2208 Patient Home Medication List Home Medication List Reviewed: Yes Review of Systems Review of Systems Constitutional: see HPI; No chills, No fever EENTM: see HPI Respiratory: no symptoms reported Cardiovascular: no symptoms reported Genitourinary: no symptoms reported Musculoskeletal: no symptoms reported Skin: see HPI Psychiatric/Neurological: No Symptoms Reported Past Qveqtse-Upjufi-Tqnovl Hx Patient Social History Type Used: Cigarettes 2nd Hand Smoke Exposure: Yes Recent Foreign Travel: No Contact w/Someone Who Travel: No Recent Infectious Disease Expo: No Recent Hopitalizations: No Immunizations Up To Date Tetanus Booster (TDap): Unknown PED Vaccines UTD: No Date of Influenza Vaccine: Oct 14, 2014 Seasonal Allergies Seasonal Allergies: No Past Medical History Surgeries: Yes ( RECTOCELE, ABSCESS I&D'S) Gallbladder, Hysterectomy, Rectal Respiratory: No Pneumonia Cardiac: No Neurological: No Reproductive Disorders: Yes (GENITAL PROLAPSE) 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 Sexually Transmitted Disease: No HIV/AIDS: No Genitourinary: Yes Bladder Infection Gastrointestinal: No Musculoskeletal: Yes Scoliosis, Fractures Endocrine: No HEENT: No Loss of Vision: Bilateral Hearing Impairment: Denies Cancer: No Psychosocial: Yes ADD/ADHD, Depression Integumentary: Yes (MRSA, ABSCESSES,SKIN TAG) Blood Disorders: No Adverse Reaction/Blood Tranf: No Family Medical History Abdominal aortic aneurysm Grandfather, Onset:60 years & older Arthritis 19 MOTHER, Onset:30's - 40 Seizure disorder 19 MOTHER, Onset:Childhood No Family History of: AIDS Noel's disease Alcoholism Alzheimer's disease Aphasia Asthma Cancer of mouth Cardiovascular disease Cataracts Colon cancer Completed stroke Congenital disease Congenital heart disease Coronary thrombosis Cystic fibrosis Deafness or hearing loss Dementia Diabetes mellitus Drug abuse Dysphasia Fibrocystic disease of breast Gastroenteritis Glaucoma Headache disorder Hypercholesterolemia Hypertension Infertility Kidney disease Myocardial infarction Neoplasm Not obtainable due to adoption Osteoporosis Parkinson's disease Prostate cancer Psychosocial problem Respiratory disorder Severe allergy Thyroid disease Tuberculosis Visual disorder Physical Exam Vital Signs Vital Signs - First Documented 11/06/18 09:38 Temp 98.2 Pulse 79 Resp 18 B/P (MAP) 107/74 (85) Pulse Ox 100 O2 Delivery Room Air Capillary Refill : Less Than 3 Seconds General Appearance: WD/WN, no apparent distress HEENT: PERRL/EOMI, normal ENT inspection Respiratory: no respiratory distress, no accessory muscle use Neurologic/Psychiatric: alert, normal mood/affect, oriented x 3 Skin: normal color, warm/dry, other (2 mm pustule to the anterior right thigh with 2 cm of surrounding erythema and 2 cm of a streak of lymphangitis.) Skin Problem Character: other (pustule) Progress/Results/Core Measures Results/Orders Vital Signs/I&O 11/06/18 09:38 Temp 98.2 Pulse 79 Resp 18 B/P (MAP) 107/74 (85) Pulse Ox 100 O2 Delivery Room Air Blood Pressure Mean: 85 Departure Communication (Admissions) Pustule was opened with a 23-gauge needle. Culture collected and sent to lab. Impression Primary Impression: Skin pustule Disposition: 01 HOME, SELF-CARE Condition: Stable Departure-Patient Inst. Decision time for Depature: 10:49 Referrals: NO,LOCAL PHYSICIAN (PCP/Family) Primary Care Physician Patient Instructions: Skin Abscess Add. Discharge Instructions: 1. Warm compresses to this area. Keep it covered with a Band-Aid. Antibiotics as directed. All discharge instructions reviewed with patient and/or family. Voiced understanding. Scripts Minocycline HCl (Minocycline HCl) 100 Mg Capsule 100 MG PO BID, #14 CAP Prov: TENNILLE MCFADDEN APRN 11/06/18 TENNILLE MCFADDEN APRN Nov 06, 2018 10:50
[2018-11-06 10:58] VITALS: BP 107/74
== END 2018-11-06 10:58 | disposition home or self-care (01) ==
LOC: EDUNIT# 09:00 → ER 09:01
DX: L08.9 Local infection of the skin and subcutaneous tissue, unspecified (principal); F90.9 Attention-deficit hyperactivity disorder, unspecified type; F32.9 Major depressive disorder, single episode, unspecified; F98.8 Other specified behavioral and emotional disorders with onset usually occurring in childhood and adolescence; Z88.2 Allergy status to sulfonamides; Z77.22 Contact with and (suspected) exposure to environmental tobacco smoke (acute) (chronic); Z90.710 Acquired absence of both cervix and uterus; Z98.890 Other specified postprocedural states; Z87.01 Personal history of pneumonia (recurrent); Z87.448 Personal history of other diseases of urinary system; Z86.14 Personal history of Methicillin resistant Staphylococcus aureus infection
CPT/HCPCS: 87070; 87077; 87205; 99283

== ENCOUNTER 2019-03-29 10:56 | Emergency (ER) | payer SELFPAY ==
[~2019-03-29] VITALS: Ht 157.5 cm; Wt 59.0 kg
[~2019-03-29 10:56] MED LIST changes: +MINO100C2 PO
[2019-03-29] MEDS ORDERED: DOXY100C42 PO (11:13)
--- NOTE | 2019-03-29 11:13 | ED Integumentary General ---
General Chief Complaint: Skin/Wound Problems Stated Complaint: L LEG POSS STAPH INFECTION Source: patient Exam Limitations: no limitations History of Present Illness Date Seen by Provider: March 29, 2019 Time Seen by Provider: 11:11 Initial Comments 2 erythematous papules to the anterior left thigh right where her underwear or rub. Present for 2-3 days no fevers or chills. Rates pain 7 out of 10. No fevers or Chills or systemic symptoms. Timing/Duration: just prior to arrival Severity: mild Location: extremities Associated Symptoms: denies symptoms Allergies and Home Medications Allergies Coded Allergies: Sulfa (Sulfonamide Antibiotics) (Verified Allergy, Unknown, 01/31/17) Home Medications Amoxicillin/Potassium Clav 1 Each Tablet, 1 EACH PO BID Prescribed by: PHI KILGORE on 05/10/18 0101 Hydrocodone/Acetaminophen 1 Each Tablet, 1 EACH PO Q4H PRN for PAIN-MODERATE TO SEVERE Prescribed by: TENNILLE MCFADDEN on 06/14/18 2208 Minocycline HCl 100 Mg Capsule, 100 MG PO BID Prescribed by: TENNILLE MCFADDEN on 11/06/18 1050 Patient Home Medication List Home Medication List Reviewed: Yes Review of Systems Review of Systems Constitutional: see HPI EENTM: see HPI Respiratory: no symptoms reported Cardiovascular: no symptoms reported Genitourinary: no symptoms reported Musculoskeletal: no symptoms reported Skin: see HPI Past Ilrabqx-Ieafly-Plyhwd Hx Patient Social History Alcohol Use: Denies Use Recreational Drug Use: No Smoking Status: Current Everyday Smoker Type Used: Cigarettes 2nd Hand Smoke Exposure: Yes Recent Foreign Travel: No Contact w/Someone Who Travel: No Recent Hopitalizations: No Physical Abuse: No Sexual Abuse: No Immunizations Up To Date Tetanus Booster (TDap): Unknown PED Vaccines UTD: No Date of Influenza Vaccine: Oct 14, 2014 Seasonal Allergies Seasonal Allergies: No Past Medical History Surgeries: Yes ( RECTOCELE, ABSCESS I&D'S) Gallbladder, Hysterectomy, Rectal Respiratory: No Pneumonia Cardiac: No Neurological: No Reproductive Disorders: Yes (GENITAL PROLAPSE) 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 Sexually Transmitted Disease: No HIV/AIDS: No Genitourinary: Yes Bladder Infection Gastrointestinal: No Musculoskeletal: Yes Scoliosis, Fractures Endocrine: No HEENT: No Loss of Vision: Bilateral Hearing Impairment: Denies Cancer: No Psychosocial: Yes ADD/ADHD, Depression Integumentary: Yes (MRSA, ABSCESSES,SKIN TAG) Blood Disorders: No Adverse Reaction/Blood Tranf: No Family Medical History Abdominal aortic aneurysm Grandfather, Onset:60 years & older Arthritis 19 MOTHER, Onset:30's - 40 Seizure disorder 19 MOTHER, Onset:Childhood No Family History of: AIDS [place]'s disease Alcoholism Alzheimer's disease Aphasia Asthma Cancer of mouth Cardiovascular disease Cataracts Colon cancer Completed stroke Congenital disease Congenital heart disease Coronary thrombosis Cystic fibrosis Deafness or hearing loss Dementia Diabetes mellitus Drug abuse Dysphasia Fibrocystic disease of breast Gastroenteritis Glaucoma Headache disorder Hypercholesterolemia Hypertension Infertility Kidney disease Myocardial infarction Neoplasm Not obtainable due to adoption Osteoporosis Parkinson's disease Prostate cancer Psychosocial problem Respiratory disorder Severe allergy Thyroid disease Tuberculosis Visual disorder Physical Exam Vital Signs Capillary Refill : General Appearance: WD/WN, no apparent distress Respiratory: no respiratory distress, no accessory muscle use Neurologic/Psychiatric: alert, normal mood/affect, oriented x 3 Skin: normal color, warm/dry, other (2 less than 1 cm erythematous papules tender to the anterior left groin. No palpable adenopathy lymphangitis or cellulitis. No fluctuants to these to suggest that they would be drainable.) Skin Problem Character: papules Departure Impression Primary Impression: Papule of skin Disposition: HOME, SELF-CARE Condition: Stable Departure-Patient Inst. Decision time for Depature: 11:12 Referrals: [facility] (PCP/Family) Primary Care Physician Patient Instructions: Wound Care (DC) Add. Discharge Instructions: 1. Warm compresses to this area. Tylenol and Motrin for pain control. Antibiotics as directed. All discharge instructions reviewed with patient and/ or family. Voiced understanding. Scripts Doxycycline Monohydrate (Doxycycline Monohydrate) 100 Mg Capsule 100 MG PO BID, #10 CAP Prov: TENNILLE MCFADDEN LIGHT BULB ASSEMBLER 03/29/19 TENNILLE MCFADDEN LIGHT BULB ASSEMBLER March 29, 2019 11:13
[2019-03-29 11:21] VITALS: BP 106/81
[2019-03-29] MEDS ORDERED: HYDROcodone/APAP 5 MG/325 MG (LORTAB) TAB ONE (11:36)
== END 2019-03-29 11:21 | disposition home or self-care (01) ==
LOC: EDUNIT# 10:56 → ER 10:57
DX: R23.8 Other skin changes (principal); M81.0 Age-related osteoporosis without current pathological fracture; F98.8 Other specified behavioral and emotional disorders with onset usually occurring in childhood and adolescence; F90.9 Attention-deficit hyperactivity disorder, unspecified type; F17.210 Nicotine dependence, cigarettes, uncomplicated; Z86.14 Personal history of Methicillin resistant Staphylococcus aureus infection; Z87.01 Personal history of pneumonia (recurrent); Z90.710 Acquired absence of both cervix and uterus; Z87.448 Personal history of other diseases of urinary system; Z88.2 Allergy status to sulfonamides
CPT/HCPCS: 99282

== ENCOUNTER 2019-04-03 14:15 | Emergency (ER) | payer SELFPAY ==
[~2019-04-03] VITALS: Ht 157.5 cm; Wt 58.1 kg
[~2019-04-03 14:15] MED LIST changes: +DOXY100C42 PO
[2019-04-03 14:59] LABS: BILIRUBIN,URINE NEGATIVE (NEGATIVE); CLARITY,URINE CLEAR; COLOR,URINE YELLOW; GLUCOSE, URINE (UA) NEGATIVE (NEGATIVE); KETONES,URINE NEGATIVE (NEGATIVE); LEUKOCYTE ESTERASE ,URINE 3+ (NEGATIVE); NITRITE,URINE NEGATIVE (NEGATIVE); PH,URINE 6 (5-9); PROTEIN,URINE 1+ (NEGATIVE); UROBILINOGEN,URINE NORMAL (NORMAL)
[2019-04-03] MEDS ORDERED: FAMOTIDINE 20 MG (PEPCID) TABLET PO STA (15:05)
[2019-04-03 15:06] LABS: BACTERIA,URINE MODERATE /HPF; RBC,URINE RARE /HPF; SQUAMOUS EPITHELIAL CELL,UR 25-50 /HPF; WBC,URINE 25-50 /HPF
[2019-04-03] MEDS ORDERED: ONDANSETRON 4 MG/2 ML (SDV) Z0FRAN IVP ONE ×2 (15:15→16:30)
[2019-04-03] MEDS ORDERED: LIDOCAINE 2% VISCOUS 15 ML UDC PO ONE (15:15)
[2019-04-03] MEDS ORDERED: ANTACID SUSP 30 ML UDC (MYLANTA) PO ONE (15:15)
[2019-04-03 15:19] LABS: BASOPHILS # (AUTO) 0.1 10^3/uL (0.0-0.1); BASOPHILS % (AUTO) 1 % (0-10); EOSINOPHILS # (AUTO) 0.3 10^3/uL (0.0-0.3); EOSINOPHILS % (AUTO) 5 % (0-10); HEMATOCRIT 41 % (35-52); HEMOGLOBIN 13.4 G/DL (11.5-16.0); LYMPHOCYTES # (AUTO) 2.3 X 10^3 (1.0-4.0); LYMPHOCYTES % (AUTO) 33 % (12-44); MEAN CORPUSCULAR HEMOGLOBIN 29 PG (25-34); MEAN CORPUSCULAR HGB CONC 32 G/DL (32-36); MEAN CORPUSCULAR VOLUME 89 FL (80-99); MEAN PLATELET VOLUME 11.6 FL (7.4-10.4); MONOCYTES # (AUTO) 0.4 X 10^3 (0.0-1.0); MONOCYTES % (AUTO) 6 % (0-12); NEUTROPHILS # (AUTO) 3.9 X 10^3 (1.8-7.8); NEUTROPHILS % (AUTO) 55 % (42-75); PLATELET COUNT 197 10^3/uL (130-400); RED CELL DISTRIBUTION WIDTH 13.1 % (10.0-14.5)
[2019-04-03 15:40] LABS: ALANINE AMINOTRANSFERASE 10 U/L (0-55); ALBUMIN 4.4 GM/DL (3.2-4.5); ALKALINE PHOSPHATASE 69 U/L (40-136); BILIRUBIN,TOTAL 0.4 MG/DL (0.1-1.0); BUN/CREATININE RATIO 20; CALCIUM 9.7 MG/DL (8.5-10.1); CARBON DIOXIDE 27 MMOL/L (21-32); CHLORIDE 106 MMOL/L (98-107); CREATININE SERUM 0.71 MG/DL (0.60-1.30); GFR ESTIMATED > 60; GLUCOSE 87 MG/DL (70-105); POTASSIUM 3.5 MMOL/L (3.6-5.0); SODIUM 142 MMOL/L (135-145)
--- NOTE | 2019-04-03 16:13 | ED Abdominal Pain ---
General Chief Complaint: Abdominal/GI Problems Stated Complaint: LOWER ABD PAIN;NAUSEA Nursing Triage Note: PATIENT STATES THAT SHE STARTED HAVING PAIN IN HER RIGHT SIDE OF HER ABDOMEN SINCE LAST NIGHT. SHE STATES IT IS PROGRESSIVELY GETTING WORSE. SHE IS ALSO NAUSEATED. Sepsis Screen: No Definite Risk Source of Information: Patient Exam Limitations: No Limitations History of Present Illness Date Seen by Provider: April 03, 2019 Time Seen by Provider: 15:00 Initial Comments Patient presents to ER by private conveyance with chief complaint of right upper quadrant abdominal pain. She's had her gallbladder out. She still has her appendix. She's had a hysterectomy, bladder sling and right oophorectomy by Dr. Romero. She noticed today that when she woke up that she had a small red punctate.consistent with a tiny bug bite on her right upper quadrant abdomen. She scratched it and throughout the day started getting some pain on the right side of her belly. Her mom came over to her work and pushed on her belly and it hurt her so she decided come the ER. She did not actually take any medicine for her pain. She says she has nausea but has not vomited. No fevers chills or recent illness. No dysuria discharge or diarrhea. She does have what sounds like irritable bowel with alternating constipation and diarrhea but she had a bowel movement yesterday was normal, formed without straining or watery diarrhea. No blood from the rectum. She denies using recreational drugs. She does occasionally have a drink of alcohol with one drink yesterday but no history of pancreatitis or hypertriglyceridemia. She says she does have abdominal distention but it's only on the right side of her belly. She has had a colonoscopy before because she was having some rectal bleeding in the past but they did not find anything. She has not had an EGD. Allergies and Home Medications Allergies Coded Allergies: Sulfa (Sulfonamide Antibiotics) (Verified Allergy, Unknown, 01/31/17) Patient Home Medication List Home Medication List Reviewed: Yes Review of Systems Review of Systems Constitutional: No chills, No diaphoresis EENTM: No Blurred Vision, No Double Vision Respiratory: Denies Cough, Denies Shortness of Air Cardiovascular: Denies Chest Pain, Denies Lightheadedness Gastrointestinal: Denies Abdomen Distended; Abdominal Pain; Denies Constipated , Denies Diarrhea; Nausea; Denies Vomiting Musculoskeletal: No back pain, No joint pain Skin: No pruritus, No rash Psychiatric/Neurological: Denies Headache, Denies Numbness Past Khrauvo-Cseahe-Ljwlqf Hx Patient Social History Alcohol Use: Denies Use Recreational Drug Use: No Smoking Status: Current Everyday Smoker Type Used: Cigarettes 2nd Hand Smoke Exposure: Yes Recent Foreign Travel: No Contact w/Someone Who Travel: No Recent Infectious Disease Expo: No Recent Hopitalizations: No Physical Abuse: No Sexual Abuse: No Mistreated: No Fear: No Immunizations Up To Date Tetanus Booster (TDap): Unknown PED Vaccines UTD: No Date of Influenza Vaccine: Oct 14, 2014 Seasonal Allergies Seasonal Allergies: No Past Medical History Surgeries: Yes ( RECTOCELE, ABSCESS I&D'S) Gallbladder, Hysterectomy, Rectal Respiratory: No Pneumonia Cardiac: No Neurological: No Reproductive Disorders: Yes (GENITAL PROLAPSE) 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 Sexually Transmitted Disease: No HIV/AIDS: No Genitourinary: Yes Bladder Infection Gastrointestinal: No Musculoskeletal: Yes Scoliosis, Fractures Endocrine: No HEENT: No Loss of Vision: Bilateral Hearing Impairment: Denies Cancer: No Psychosocial: Yes ADD/ADHD, Depression Integumentary: Yes (MRSA, ABSCESSES,SKIN TAG) Blood Disorders: No Adverse Reaction/Blood Tranf: No Family Medical History Abdominal aortic aneurysm Grandfather, Onset:60 years & older Arthritis 19 MOTHER, Onset:30's - 40 Seizure disorder 19 MOTHER, Onset:Childhood No Family History of: AIDS Purling's disease Alcoholism Alzheimer's disease Aphasia Asthma Cancer of mouth Cardiovascular disease Cataracts Colon cancer Completed stroke Congenital disease Congenital heart disease Coronary thrombosis Cystic fibrosis Deafness or hearing loss Dementia Diabetes mellitus Drug abuse Dysphasia Fibrocystic disease of breast Gastroenteritis Glaucoma Headache disorder Hypercholesterolemia Hypertension Infertility Kidney disease Myocardial infarction Neoplasm Not obtainable due to adoption Osteoporosis Parkinson's disease Prostate cancer Psychosocial problem Respiratory disorder Severe allergy Thyroid disease Tuberculosis Visual disorder Physical Exam Vital Signs Vital Signs - First Documented 04/03/19 14:28 Temp 98.7 Pulse 67 Resp 20 B/P (MAP) 116/75 (89) Pulse Ox 99 Capillary Refill : Less Than 3 Seconds Height/Weight/BMI Height: 5'2.00" Weight: 128lbs. 0oz. 58.682749kd; 17.6 BMI Method:Stated General Appearance: WD/WN, no apparent distress HEENT: PERRL/EOMI, pharynx normal Neck: full range of motion, normal inspection Respiratory: lungs clear, normal breath sounds, no respiratory distress, no accessory muscle use Cardiovascular: normal peripheral pulses, regular rate, rhythm, no edema Peripheral Pulses: 2+ Radial Pulses (R), 2+ Radial Pulses (L) Gastrointestinal: normal bowel sounds, soft; No rebound; tenderness ( epigastric and right upper quadrant without Liang's sign.), other (negative for psoas sign, Rovsing sign or mesenteric signs) Extremities: normal range of motion, normal capillary refill Neurologic/Psychiatric: alert, normal mood/affect, oriented x 3 Skin: normal color, warm/dry Progress/Results/Core Measures Results/Orders Lab Results Laboratory Tests Test 04/03/19 14:45 04/03/19 15:10 Range/Units Urine Color YELLOW Urine Clarity CLEAR Urine pH 6 5-9 Urine Specific Mclean 1.025 H 1.016-1.022 Urine Protein 1+ H NEGATIVE Urine Glucose (UA) NEGATIVE NEGATIVE Urine Ketones NEGATIVE NEGATIVE Urine Nitrite NEGATIVE NEGATIVE Urine Bilirubin NEGATIVE NEGATIVE Urine Urobilinogen NORMAL NORMAL MG/DL Urine Leukocyte Esterase 3+ H NEGATIVE Urine RBC (Auto) 1+ H NEGATIVE Urine RBC RARE /HPF Urine WBC 25-50 H /HPF Urine Squamous Epithelial Cells 25-50 H /HPF Urine Crystals NONE /LPF Urine Bacteria MODERATE H /HPF Urine Casts NONE /LPF Urine Mucus MODERATE H /LPF Urine Culture Indicated YES Urine Test NEGATIVE NEGATIVE White Blood Count 7.0 4.3-11.0 10^3/uL Red Blood Count 4.65 4.35-5.85 10^6/uL Hemoglobin 13.4 11.5-16.0 G/DL Hematocrit 41 35-52 % Mean Corpuscular Volume 89 80-99 FL Mean Corpuscular Hemoglobin 29 25-34 PG Mean Corpuscular Hemoglobin Concent 32 32-36 G/DL Red Cell Distribution Width 13.1 10.0-14.5 % Platelet Count 197 130-400 10^3/uL Mean Platelet Volume 11.6 H 7.4-10.4 FL Neutrophils (%) (Auto) 55 42-75 % Lymphocytes (%) (Auto) 33 12-44 % Monocytes (%) (Auto) 6 0-12 % Eosinophils (%) (Auto) 5 0-10 % Basophils (%) (Auto) 1 0-10 % Neutrophils # (Auto) 3.9 1.8-7.8 X 10^3 Lymphocytes # (Auto) 2.3 1.0-4.0 X 10^3 Monocytes # (Auto) 0.4 0.0-1.0 X 10^3 Eosinophils # (Auto) 0.3 0.0-0.3 10^3/uL Basophils # (Auto) 0.1 0.0-0.1 10^3/uL Sodium Level 142 135-145 MMOL/L Potassium Level 3.5 L 3.6-5.0 MMOL/L Chloride Level 106 98-107 MMOL/L Carbon Dioxide Level 27 21-32 MMOL/L Anion Gap 9 5-14 MMOL/L Blood Urea Nitrogen 14 7-18 MG/DL Creatinine 0.71 0.60-1.30 MG/DL Estimat Glomerular Filtration Rate > 60 BUN/Creatinine Ratio 20 Glucose Level 87 70-105 MG/DL Calcium Level 9.7 8.5-10.1 MG/DL Corrected Calcium 9.4 8.5-10.1 MG/DL Total Bilirubin 0.4 0.1-1.0 MG/DL Aspartate Amino Transf (AST/SGOT) 14 5-34 U/L Alanine Aminotransferase (ALT/SGPT) 10 0-55 U/L Alkaline Phosphatase 69 40-136 U/L C-Reactive Protein High Sensitivity 0.03 0.00-0.50 MG/DL Total Protein 7.0 6.4-8.2 GM/DL Albumin 4.4 3.2-4.5 GM/DL Lipase 11 8-78 U/L My Orders Orders - ZOLTAN PATEL Ua Culture If Indicated (04/03/19 14:20) Hcg,Qualitative Urine (04/03/19 14:57) Urine Culture (04/03/19 14:45) Cbc With Automated Diff (04/03/19 15:05) Hs C Reactive Protein (04/03/19 15:05) Comprehensive Metabolic Panel (04/03/19 15:05) Ondansetron Injection (Zofran Injectio (04/03/19 15:15) Lidocaine 2% Viscous 15 Ml (Xylocaine Vi (04/03/19 15:15) Famotidine Tablet (Pepcid Tablet) (04/03/19 15:05) Antacid Suspension (Mylanta Suspension (04/03/19 15:15) Ed Iv/Invasive Line Start (04/03/19 15:05) Lipase (04/03/19 16:13) Ketorolac Injection (Toradol Injection) (04/03/19 16:30) Ondansetron Injection (Zofran Injectio (04/03/19 16:30) Medications Given in ED Current Medications Medications Dose Ordered Sig/Nehal Route Start Time Stop Time Status Last Admin Dose Admin Al Hydrox/Mg Hydrox/Simethicone 30 ml ONCE ONCE PO 04/03/19 15:15 04/03/19 15:16 DC 04/03/19 15:22 30 ML Ketorolac Tromethamine 30 mg ONCE ONCE IVP 04/03/19 16:30 04/03/19 16:31 DC 04/03/19 16:23 30 MG Lidocaine HCl 15 ml ONCE ONCE PO 04/03/19 15:15 04/03/19 15:16 DC 04/03/19 15:22 15 ML Ondansetron HCl 4 mg ONCE ONCE IVP 04/03/19 15:15 04/03/19 15:16 DC 04/03/19 15:20 4 MG Ondansetron HCl 4 mg ONCE ONCE IVP 04/03/19 16:30 04/03/19 16:31 DC 04/03/19 16:21 4 MG Vital Signs/I&O 04/03/19 14:28 Temp 98.7 Pulse 67 Resp 20 B/P (MAP) 116/75 (89) Pulse Ox 99 Blood Pressure Mean: 89 Progress Progress Note #1: Time: 16:19 Progress Note Patient's demeanor is inconsistent with her history. Her abdomen is nonsurgical , nonrigid. No mesenteric signs. We started with a GI cocktail which did take her pain down by about half and the Zofran took her nausea away but she feels her nausea coming back now. We'll add a lipase that somehow got missed previously and give her some Toradol more Zofran and we'll reexamine her. Patient seems fixated on a small insect bite appearing red punctate.on her right upper abdomen. There is no evidence of erythema, induration or cellulitis etc. Since her abdominal wall is very sensitive to light touch in that area is possible she does have abdominal wall tenderness that is not related to internal viscera. Her initial labs show no inflammation or infection. Progress Note #2: Time: 16:55 Progress Note Patient's symptoms are improved but her pain is not completely gone. Her labs are unremarkable. We'll provide her some return precautions, Tylenol Motrin and Zofran and have her see how this evolves over the weekend. If it's still there by Saturday she should follow-up with primary care otherwise she can always come back here. Departure Impression Primary Impression: Abdominal pain Qualified Codes: R10.13 - Epigastric pain Disposition: HOME, SELF-CARE Condition: Stable Departure-Patient Inst. Decision time for Depature: 16:56 Referrals: [facility] (PCP/Family) Primary Care Physician Patient Instructions: Acute Abdomen (Belly Pain), Adult (DC) Add. Discharge Instructions: As long as you can tolerate your pain and nausea using Tylenol 1000 mg every 8 hours in addition to ibuprofen 800 mg every 8 hours, heating pads and Zofran 1 tablet every 6 hours as needed for nausea then you should go home rest drink plenty fluids and take it easy. If you're still having symptoms by Saturday go see her primary care doctor to further work this up. If your pain becomes intractable or your nausea is not controlled or you have other new symptoms such as fever etc. then we invite you to please please return to the ER for further workup. All discharge instructions reviewed with patient and/or family. Voiced understanding. Scripts Ondansetron (Ondansetron Odt) 4 Mg Tab.rapdis 4 MG PO Q6H PRN for NAUSEA/VOMITING, #8 TAB 0 Refills Prov: ZOLTAN PATEL 04/03/19 Work/School Note: Work Release Form Date Seen in the Emergency Department: April 03, 2019 Return to Work: April 04, 2019 Restrictions: No Restrictions ZOLTAN PATEL April 03, 2019 16:13
[2019-04-03] MEDS ORDERED: KETOROLAC 30 MG/ML VIAL IVP ONE (16:30)
[2019-04-03] MEDS ORDERED: ONDA4TAB11 PO (16:59)
[2019-04-03 17:09] VITALS: BP 130/80
== END 2019-04-03 17:12 | disposition home or self-care (01) ==
LOC: EDUNIT# 14:15 → ER 14:16
DX: R10.13 Epigastric pain (principal); R10.11 Right upper quadrant pain; M41.9 Scoliosis, unspecified; F90.9 Attention-deficit hyperactivity disorder, unspecified type; F32.9 Major depressive disorder, single episode, unspecified; F17.210 Nicotine dependence, cigarettes, uncomplicated; Z88.2 Allergy status to sulfonamides; Z86.14 Personal history of Methicillin resistant Staphylococcus aureus infection; Z90.710 Acquired absence of both cervix and uterus; Z98.890 Other specified postprocedural states; Z87.448 Personal history of other diseases of urinary system
CPT/HCPCS: 36415; 80053; 81000; 83690; 84703; 85025; 86141; 87088

== ENCOUNTER 2019-05-22 13:50 | Emergency (ER) | payer SELFPAY ==
[~2019-05-22] VITALS: Ht 157.5 cm; Wt 58.1 kg
[~2019-05-22 13:50] MED LIST changes: +ONDA4TAB11 PO
[2019-05-22] MEDS ORDERED: MUPI22OI2 TP (14:17)
--- NOTE | 2019-05-22 14:17 | ED Integumentary General ---
General Chief Complaint: Skin/Wound Problems Stated Complaint: STAPH INFECTION Source: patient Exam Limitations: no limitations History of Present Illness Date Seen by Provider: May 22, 2019 Time Seen by Provider: 14:15 Initial Comments recurrent left groin pustule Timing/Duration: just prior to arrival Severity: moderate Associated Symptoms: denies symptoms Allergies and Home Medications Allergies Coded Allergies: Sulfa (Sulfonamide Antibiotics) (Verified Allergy, Unknown, 05/22/19) Home Medications Mupirocin 22 Gm Oint...g., 1 GM TP BID Prescribed by: TENNILLE MCFADDEN on 05/22/19 1417 Ondansetron 4 Mg Tab.rapdis, 4 MG PO Q6H PRN for NAUSEA/VOMITING Prescribed by: ZOLTAN PATEL on 04/03/19 1659 Patient Home Medication List Home Medication List Reviewed: Yes Review of Systems Review of Systems Constitutional: see HPI EENTM: see HPI Respiratory: no symptoms reported Cardiovascular: no symptoms reported Genitourinary: no symptoms reported Musculoskeletal: no symptoms reported Skin: see HPI Psychiatric/Neurological: No Symptoms Reported Endocrine: No Symptoms Reported Past Irhiifo-Fqrcon-Tzlhuz Hx Patient Social History Alcohol Use: Denies Use Recreational Drug Use: No Type Used: Cigarettes 2nd Hand Smoke Exposure: Yes Recent Foreign Travel: No Contact w/Someone Who Travel: No Recent Hopitalizations: No Physical Abuse: No Sexual Abuse: No Mistreated: No Fear: No Immunizations Up To Date Tetanus Booster (TDap): Unknown PED Vaccines UTD: No Date of Influenza Vaccine: Oct 14, 2014 Seasonal Allergies Seasonal Allergies: No Past Medical History Surgeries: Yes ( RECTOCELE, ABSCESS I&D'S) Gallbladder, Hysterectomy, Rectal Respiratory: No Pneumonia Cardiac: No Neurological: No Reproductive Disorders: Yes (GENITAL PROLAPSE) 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 Sexually Transmitted Disease: No HIV/AIDS: No Genitourinary: Yes Bladder Infection Gastrointestinal: No Musculoskeletal: Yes Scoliosis, Fractures Endocrine: No HEENT: No Loss of Vision: Bilateral Hearing Impairment: Denies Cancer: No Psychosocial: Yes ADD/ADHD, Depression Integumentary: Yes (MRSA, ABSCESSES,SKIN TAG) Blood Disorders: No Adverse Reaction/Blood Tranf: No Family Medical History Abdominal aortic aneurysm Grandfather, Onset:60 years & older Arthritis 19 MOTHER, Onset:30's - 40 Seizure disorder 19 MOTHER, Onset:Childhood No Family History of: AIDS Noel's disease Alcoholism Alzheimer's disease Aphasia Asthma Cancer of mouth Cardiovascular disease Cataracts Colon cancer Completed stroke Congenital disease Congenital heart disease Coronary thrombosis Cystic fibrosis Deafness or hearing loss Dementia Diabetes mellitus Drug abuse Dysphasia Fibrocystic disease of breast Gastroenteritis Glaucoma Headache disorder Hypercholesterolemia Hypertension Infertility Kidney disease Myocardial infarction Neoplasm Not obtainable due to adoption Osteoporosis Parkinson's disease Prostate cancer Psychosocial problem Respiratory disorder Severe allergy Thyroid disease Tuberculosis Visual disorder Physical Exam Vital Signs Vital Signs - First Documented 05/22/19 14:05 Temp 98.1 Pulse 92 Resp 16 B/P (MAP) 117/73 (88) Pulse Ox 99 Capillary Refill : General Appearance: WD/WN, no apparent distress HEENT: PERRL/EOMI, normal ENT inspection Respiratory: no respiratory distress, no accessory muscle use Neurologic/Psychiatric: alert, normal mood/affect, oriented x 3 Skin: normal color, warm/dry Skin Problem Location: lower extremities Skin Problem Character: other (pustule left groin) Procedures/Interventions I&D : Blade Size: 11 Progress Anesthetized with 0.25 mL of lidocaine without epinephrine then incised with an 11 blade scalpel moderate amount of purulent material expressed. Gauze Progress/Results/Core Measures Results/Orders Vital Signs/I&O 05/22/19 14:05 Temp 98.1 Pulse 92 Resp 16 B/P (MAP) 117/73 (88) Pulse Ox 99 Departure Impression Primary Impression: Skin pustule Disposition: 01 HOME, SELF-CARE Condition: Stable Departure-Patient Inst. Decision time for Depature: 14:16 Referrals: [facility] (PCP/Family) Primary Care Physician Patient Instructions: Skin Abscess Add. Discharge Instructions: 1. Compresses to the area 2. Topical antibiotic 3. All discharge instructions reviewed with patient and/or family. Voiced understanding. Scripts Mupirocin (Mupirocin) 22 Gm Oint...g. 1 GM TP BID for 5 Days, #1 TUBE Prov: TENNILLE MCFADDEN APRN 05/22/19 TENNILLE MCFADDEN [employer]TE[employer]ATED [employer] DESIGN ENGINEER May 22, 2019 14:17
[2019-05-22 14:36] VITALS: BP 126/71
== END 2019-05-22 14:36 | disposition home or self-care (01) ==
LOC: EDUNIT# 13:50 → ER 13:50
DX: L08.9 Local infection of the skin and subcutaneous tissue, unspecified (principal); F32.9 Major depressive disorder, single episode, unspecified; F90.9 Attention-deficit hyperactivity disorder, unspecified type; Z88.2 Allergy status to sulfonamides; Z77.22 Contact with and (suspected) exposure to environmental tobacco smoke (acute) (chronic); Z90.710 Acquired absence of both cervix and uterus; Z87.01 Personal history of pneumonia (recurrent)
CPT/HCPCS: 99282

== ENCOUNTER 2019-06-30 09:01 | Outpatient (CLI) | payer OTHER ==
[~2019-06-30] VITALS: Ht 157.5 cm; Wt 60.1 kg
[~2019-06-30 09:01] MED LIST changes: +MUPI22OI2 TP
[2019-06-30] MEDS ORDERED: SERT50TA2 PO (09:12)
[2019-06-30] MEDS ORDERED: HYDR-700 PO (09:12)
[2019-06-30] MEDS ORDERED: METH10TA3 PO (09:12)
[2019-06-30 09:15] VITALS: BP 117/81
[2019-06-30 09:45] LABS: BASOPHILS # (AUTO) 0.1 10^3/uL (0.0-0.1); BASOPHILS % (AUTO) 1 % (0-10); EOSINOPHILS # (AUTO) 0.3 10^3/uL (0.0-0.3); EOSINOPHILS % (AUTO) 4 % (0-10); HEMATOCRIT 40 % (35-52); HEMOGLOBIN 13.2 G/DL (11.5-16.0); LYMPHOCYTES # (AUTO) 2.1 X 10^3 (1.0-4.0); LYMPHOCYTES % (AUTO) 28 % (12-44); MEAN CORPUSCULAR HEMOGLOBIN 29 PG (25-34); MEAN CORPUSCULAR HGB CONC 33 G/DL (32-36); MEAN CORPUSCULAR VOLUME 89 FL (80-99); MEAN PLATELET VOLUME 11.2 FL (7.4-10.4); MONOCYTES # (AUTO) 0.5 X 10^3 (0.0-1.0); MONOCYTES % (AUTO) 7 % (0-12); NEUTROPHILS # (AUTO) 4.5 X 10^3 (1.8-7.8); NEUTROPHILS % (AUTO) 61 % (42-75); PLATELET COUNT 195 10^3/uL (130-400); RED CELL DISTRIBUTION WIDTH 13.5 % (10.0-14.5); WHITE BLOOD COUNT 7.5 10^3/uL (4.3-11.0)
== END 2019-06-30 16:00 | disposition home or self-care (01) ==
LOC: PREOP 09:01
PROVIDERS: ATTEND Obstetrics & Gynecology
DX: Z01.818 Encounter for other preprocedural examination (principal); N80.9 Endometriosis, unspecified; N81.6 Rectocele
CPT/HCPCS: 36415; 85025; 87081

== ENCOUNTER 2019-07-14 09:00 | Day surgery (SDC) | payer OTHER ==
[~2019-07-14] VITALS: Ht 157.5 cm; Wt 60.1 kg
[2019-07-14] VITALS (11 sets, daily range): BP systolic 103–124; BP diastolic 65–85
[~2019-07-14 09:00] MED LIST changes: +HYDR-700 PO; +SERT50TA2 PO
[2019-07-14] MEDS ORDERED: ceFAZolin INJECTION 1,000 MG in WATER (STERILE) FOR INJECTION 10 ML IV ONE (09:15)
[2019-07-14] MEDS: LACTATED RINGERS 1,000 ML IV PRN ×2 (09:30→13:15)
[2019-07-14] MEDS ORDERED: fentaNYL INJECTION 100 MCG/2 ML AMP ONE ×2 (09:48→13:18)
[2019-07-14] MEDS ORDERED: LIDOCAINE PF 2% 5 ML (XYLOCAINE) VIAL ONE (09:48)
[2019-07-14] MEDS ORDERED: ONDANSETRON 4 MG/2 ML (SDV) Z0FRAN ONE (09:48)
[2019-07-14] MEDS ORDERED: ROCURONIUM 10 MG/ML 5 ML SYRINGE IV ONE (09:48)
[2019-07-14] MEDS ORDERED: DEXAMETHASONE 10 MG/ML (DECADRON) 1 ML VIAL ONE (09:48)
[2019-07-14] MEDS ORDERED: proPOfol 200 MG/20 ML (DIPRIVAN) VIAL IV ONE ×2 (09:48→13:28)
[2019-07-14] MEDS ORDERED: SEVOFLURANE (ULTANE) 15 ML INHAL SOLN ONE ×4 (09:48→13:52)
[2019-07-14] MEDS ORDERED: MIDAZOLAM 2 MG/2 ML (VERSED) VIAL ONE (09:49)
[2019-07-14] MEDS ORDERED: VASOPRESSIN INJECTION 20 UNIT/ML VIAL ONE (10:03)
[2019-07-14] MEDS ORDERED: NS (IVPB) 100 ML ONE (10:03)
[2019-07-14] MEDS ORDERED: ESTRADIOL VAGINAL CREAM 42.5 GM (ESTRACE) VG ONE (10:04)
--- NOTE | 2019-07-14 11:53 | Progress Note-Pre Operative ---
Pre-Operative Progress Note H&P Reviewed The H&P was reviewed, patient examined and no changes noted. PATIENT REQUESTS THAT HER LEFT OVARY BE REMOVED AND HER APPENDIX IF THIS IS POSSIBLE Date Seen by Provider: Jul 14, 2019 Time Seen by Provider: 11:45 Date H&P Reviewed: Jul 14, 2019 Time H&P Reviewed: 07:30 Pre-Operative Diagnosis: ENDOMETRIOSIS, RECTOCELE, MAVERICK MORELAND DO Jul 14, 2019 11:53
[2019-07-14] MEDS ORDERED: BUP/EPI 0.25% 1:200,000 (MARCAINE) 10 ML VIAL IJ ONE (12:32)
[2019-07-14] MEDS: KETOROLAC 30 MG/ML VIAL IV SCH ×2 (13:45→19:57)
[2019-07-14] MEDS ORDERED: KETOROLAC 30 MG/ML VIAL ONE (13:46)
[2019-07-14] MEDS ORDERED: MEPERIDINE (DEMEROL) INJ 50 MG/ML ONE (14:00)
[2019-07-14] MEDS ORDERED: ESTRADIOL 0.1 MG PATCH (CLIMARA) ONE (14:07)
--- NOTE | 2019-07-14 14:11 | Operative Report ---
Operative Report Date of Procedure/Surgery Jul 14, 2019 Surgeon (s) MAVERICK MORELAND DO Mold Clamper (s): January William, MS III Post-Operative Diagnosis endometriosis, pelvic pain, rectocele, interstitial cytitis Procedure Performed Laparoscopy with fulgeration of endometriosis, left oophorectomy, rectocele repair and cystoscopy with hydrodistension Description of Procedure Anesthesia Type: General Estimated blood loss (mL): minimal Specimen(s) collected/removed left ovary Findings of the Procedure enlarged and scarred left ovary, residual scarring and endometriosis Huhner's patches and petechiae consistent with IC 2-3+ rectocele and scarred perineum Allergies and Home Medications Allergies Coded Allergies: Sulfa (Sulfonamide Antibiotics) (Verified Allergy, Severe, ANAPHYLAXIS, 06/30/19) Home Medications Hydroxyzine HCl 25 Mg Tablet, 75 MG PO HS, (Reported) Methylphenidate HCl 10 Mg Tablet, 10 MG PO TID, (Reported) Sertraline HCl 50 Mg Tablet, 50 MG PO DAILY, (Reported) MAVERICK MORELAND DO Jul 14, 2019 14:11
[2019-07-14] MEDS ORDERED: morphine INJ 4 MG/ML 1 ML (VIAL/SYRINGE) IVP PRN (14:15)
[2019-07-14] MEDS ORDERED: morphine INJ 10 MG/ML 1ML (SYR OR VIAL) IVP ONE (14:15)
[2019-07-14] MEDS ORDERED: HYDROmorphone 2 MG/ML VIAL (DILAUDID) IV ONE (14:15)
[2019-07-14] MEDS ORDERED: BENZOCAINE/MENTHOL (DERMOPLAST) 56 ML CAN TP PRN (14:15)
[2019-07-14] MEDS ORDERED: PROMETHAZINE INJ 25 MG/ML (PHENERGAN) AMP IVP ONE (14:15)
[2019-07-14] MEDS ORDERED: MEPERIDINE (DEMEROL) INJ 50 MG/ML IVP ONE (14:15)
[2019-07-14] MEDS ORDERED: ESTRADIOL 0.1 MG PATCH (CLIMARA) TD ONE (14:15)
--- NOTE | 2019-07-14 15:05 | NUR ---
KRISTINA LATA admitted to room 3305-1, with an admitting diagnosis of LAPAROSCOPY WITH RECTOCELE REPAIR, on 07/14/19 from [facility] via , accompanied by .KRISTINA GUIDO introduced to surroundings, call light, bed controls, phone, TV, temperature control, lights, meal times, smoking policy, visitor policy, side rail policy, bathrooms and showers. Patient Rights given to patient in the handbook.KRISTINA GUIDO verbalizes understanding that [facility] is not responsible for the loss or damage to any personal effects or valuables that are kept in the patients posession during their hospitalization. The following Patient Care Plans were discussed with the : Discharge Planning, ,, and . KRISTINA GUIDO verbalizes understanding of Interdisciplinary Patient Education. Patient and/or family were informed about the Rapid Response Team and its purpose.
--- NOTE | 2019-07-14 15:35 | NUR ---
INITIAL ASSESSMENT COMPLETED, SEE INTERVENTIONS FOR DETAILED ASSESSMENTS, PLAN OF CARE EXPLAINED, S/O AT SIDE, WILL MONITOR CLOSELY, VSS.
--- NOTE | 2019-07-14 16:20 | NUR ---
PT C/O PAIN, OXYCODONE 1 TAB GIVEN PO FOR PAIN.
[2019-07-14] MEDS: D5 LR IV SOLUTION 1,000 ML IV SCH (17:15)
--- NOTE | 2019-07-14 18:18 | NUR ---
Received report from Byron Mendez RN at 2500. VSS, andrew draining with cora colored urine, 3 lap sites open to air with mild bruising around sites. No vaginal bleeding. Pt anxious and reluctant to perform IS with RT. Pain level 5.
--- NOTE | 2019-07-14 18:37 | NUR ---
Encouraged pt to T, C, DB and get out of bed this evening to make it easier on her in the a.m. She stated she has been through this before and she knows what she is doing. She apologized and stated that she would when significant other was back.
[2019-07-14] MEDS: ACETAMINOPHEN 500 MG TAB (TYLENOL) PO SCH (22:28)
[2019-07-15] VITALS: BP 92/54
[2019-07-15] MEDS: D5 LR IV SOLUTION 1,000 ML IV SCH (00:10)
[2019-07-15] MEDS: KETOROLAC 30 MG/ML VIAL IV SCH ×2 (02:05→08:21)
[2019-07-15] MEDS ORDERED: MILK OF MAGNESIA 400 MG/5 ML 30 ML UDC PO ONE (05:00)
[2019-07-15] MEDS: ACETAMINOPHEN 500 MG TAB (TYLENOL) PO SCH (05:55)
[2019-07-15 06:20] VITALS: BP 97/55
--- NOTE | 2019-07-15 07:50 | NUR ---
RN to room to answer call light. IV beeping, fluids complete. Pt reports voiding again. 100ml clear, yellow urine noted in hat in toilet. IV to SL at this time. Will return for medication admin and assessment.
[2019-07-15 08:26] VITALS: BP 114/72
[2019-07-15] MEDS ORDERED: ACET-77 PO (08:34)
[2019-07-15] MEDS ORDERED: DOCU100C37 PO (08:34)
[2019-07-15] MEDS ORDERED: OXC5T PO (08:34)
[2019-07-15] MEDS ORDERED: IBUP-844 PO (08:34)
[2019-07-15] MEDS ORDERED: Benzocaine/Menthol TP (08:34)
--- NOTE | 2019-07-15 08:36 | Discharge Inst-Women's Service ---
Discharge Inst-Women's Serv Depart Medication/Instructions New, Converted or Re-Newed RX: Other Final Diagnosis endometriosis chronic pelvic pain interstitial cystitis rectocele Problems Reviewed?: Yes Consults/Follow Up Additional Follow Up: Yes (1 - 2weeks and 6 weeks) Activity Activity: Activity as Tolerated Driving Instructions: No Driving for 1 Week NO SMOKING: NO SMOKING Nothing Inside Vagina: No Douching, No [place] (UNTIL CLEARED AT LEAST ^ WEEKS), No Tampons Other Activity no lifting over 25 lbs Diet Discharge Diet: No Restrictions Symptoms to Report to : Bleeding Excessive, Pain Increased, Fever Over 101 Degrees F, Vaginal Bleeding Increase, Cramps in Feet or Legs, Vaginal Discharge Foul For Any Problems or Questions: Contact Your Physician Skin/Wound Care Infection Signs and Symptoms: Increased Redness, Foul Odor of Wound, Increased Drainage, Skin Itchy or Has a Rash, Increased Swelling, Temperature Above 101 F Operative Area Clean and Dry: Keep Incision Clean/Dry (leave bandages in place 3 days and then remove) Stitches/Grubbs/Dermabond: Dermabond Bathing Instructions: MAVERICK Kingsley DO Jul 15, 2019 08:36
--- NOTE | 2019-07-15 08:56 | NUR ---
Dr. Romero called to unit to check on pt. Dr. Romero updated on pt status, pt has voided. Order rec'd for discharge whenever pt is ready.
[2019-07-15] MEDS ORDERED: DOCUSATE SODIUM 100 MG (COLACE) CAP PO SCH (09:00)
--- NOTE | 2019-07-15 10:07 | NUR ---
Follow up appts made for pt.
--- NOTE | 2019-07-15 12:02 | NUR ---
Discharge instructions explained to pt with copy provided to pt along with prescriptions. Pt notified of other available scripts at preferred pharmacy and follow up appts made. Pt verbalizes understanding of instructions and signs to verify. Denies questions, concerns, or needs. IV removed, tip intact. Pt assisted to wheelchair without difficulty. Pt taken off unit via wheelchair accompanied by RN, S.o. and all personal belongings to private vehicle. NO s/s of distress noted
--- NOTE | 2019-07-15 14:31 | Anesthesia-General Post-Op ---
General Patient Condition Mental Status/LOC: Same as Preop Cardiovascular: Satisfactory Nausea/Vomiting: Absent Respiratory: Satisfactory Pain: Controlled Complications: Absent Post Op Complications Complications None Follow Up Care/Instructions Patient Instructions None needed. Anesthesia/Patient Condition Patient Condition Patient is doing well, no complaints, stable vital signs, no apparent adverse anesthesia problems. No complications reported per nursing. CYNTHIA TRISTAN CRNA Jul 15, 2019 14:31
[2019-07-15] MEDS ORDERED: IBUPROFEN 600 MG (MOTRIN) TAB PO SCH (20:00)
== END 2019-07-15 12:05 | disposition home or self-care (01) ==
LOC: SDC 09:00 → EDSTATUS 10:30 → WS 15:11 → SDC 07-15 12:05
PROVIDERS: ATTEND Obstetrics & Gynecology
DX: N83.02 Follicular cyst of left ovary (principal); N94.89 Other specified conditions associated with female genital organs and menstrual cycle; N73.6 Female pelvic peritoneal adhesions (postinfective); F17.210 Nicotine dependence, cigarettes, uncomplicated; Z88.2 Allergy status to sulfonamides; Z79.899 Other long term (current) drug therapy; Z90.721 Acquired absence of ovaries, unilateral; Z90.49 Acquired absence of other specified parts of digestive tract; Z90.710 Acquired absence of both cervix and uterus; Z90.79 Acquired absence of other genital organ(s)
CPT/HCPCS: 88305; 94664

== ENCOUNTER 2019-12-18 23:05 | Emergency (ER) | payer SELFPAY ==
[~2019-12-18] VITALS: Ht 157.4 cm; Wt 53.0 kg
[~2019-12-18 23:05] MED LIST changes: +ACET-78 PO; +Benzocaine/Menthol TP; -CLON0.5T13; -CLON0.5T13 PO; +CLON0.5T4; +CLON0.5T4 PO; +DOCU100C37 PO; +IBUP-844 PO; -MINO100C2 PO; +MINO100C5 PO; +OXC5T PO
[2019-12-18 23:56] LABS: BILIRUBIN,URINE NEGATIVE (NEGATIVE); CLARITY,URINE CLEAR; COLOR,URINE YELLOW; GLUCOSE, URINE (UA) NEGATIVE (NEGATIVE); KETONES,URINE NEGATIVE (NEGATIVE); LEUKOCYTE ESTERASE ,URINE TRACE (NEGATIVE); NITRITE,URINE NEGATIVE (NEGATIVE); PROTEIN,URINE TRACE (NEGATIVE)
[2019-12-19 00:07] LABS: BACTERIA,URINE FEW /HPF
[2019-12-19] MEDS ORDERED: RX-CYCLOBENZAPRINE 10 MG (FLEXERIL) TAB PPK#3 PO STA (00:22)
[2019-12-19] MEDS ORDERED: KETO10TA PO (00:27)
[2019-12-19] MEDS ORDERED: METH500T7 PO (00:27)
--- NOTE | 2019-12-19 00:27 | ED Back Pain ---
General Chief Complaint: Back Problems Stated Complaint: BACK PAIN Allergies and Home Medications Allergies Coded Allergies: Sulfa (Sulfonamide Antibiotics) (Verified Allergy, Severe, ANAPHYLAXIS, 06/30/19) Home Medications Acetaminophen 500 Mg Tablet, 1,000 MG PO Q8HR Prescribed by: MAVERICK MORELAND on 07/15/19833 Docusate Sodium 100 Mg Capsule, 100 MG PO BID Prescribed by: MAVERICK MORELAND on 07/15/19833 Hydroxyzine HCl 25 Mg Tablet, 75 MG PO HS, (Reported) Ibuprofen 600 Mg Tablet, 600 MG PO Q6H Prescribed by: MAVERICK MORELAND on 07/15/19833 Methylphenidate HCl 10 Mg Tablet, 10 MG PO TID, (Reported) Oxycodone Hcl 5 Mg Tab, 5 MG PO Q4HR PRN for pain Prescribed by: MAVERICK MORELAND on 07/15/19833 Sertraline HCl 50 Mg Tablet, 50 MG PO DAILY, (Reported) [Benzocaine/Menthol] 56 ML AEROSOL, 56 ML TP UD PRN for PAIN-MILD EXTERNAL USE ONLY Prescribed by: MAVERICK MORLEAND on 07/15/19833 Past Ksyqyjk-Epjgyn-Mgdnlt Hx Patient Social History Type Used: Cigarettes 2nd Hand Smoke Exposure: Yes Recent Foreign Travel: No Contact w/Someone Who Travel: No Recent Hopitalizations: No Immunizations Up To Date Tetanus Booster (TDap): Unknown PED Vaccines UTD: No Date of Influenza Vaccine: Oct 14, 2014 Seasonal Allergies Seasonal Allergies: No Past Medical History Surgeries: Yes ( RECTOCELE, ABSCESS I&D'S, R OVARY, BLADDER SLING) Bladder Surgery, Gallbladder, Hysterectomy, Oophorectomy, Rectal Respiratory: No Pneumonia Cardiac: No Neurological: Yes (HX OF ONE SEIZURE-NO ISSUES SINCE) 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 Reproductive Disorders: Endometriosis [employer] History: Hysterectomy Sexually Transmitted Disease: No HIV/AIDS: No Genitourinary: No Bladder Infection Gastrointestinal: No Musculoskeletal: Yes Scoliosis, Fractures Endocrine: No HEENT: Yes (GLASSES) Loss of Vision: Denies Hearing Impairment: Denies Cancer: No Psychosocial: Yes ADD/ADHD, Depression Integumentary: Yes (HX MRSA) Blood Disorders: No Adverse Reaction/Blood Tranf: No (N/A) Family Medical History Abdominal aortic aneurysm Grandfather, Onset:60 years & older Arthritis 19 MOTHER, Onset:30's - 40 Seizure disorder 19 MOTHER, Onset:Childhood No Family History of: AIDS [place]'s disease Alcoholism Alzheimer's disease Aphasia Asthma Cancer of mouth Cardiovascular disease Cataracts Colon cancer Completed stroke Congenital disease Congenital heart disease Coronary thrombosis Cystic fibrosis Deafness or hearing loss Dementia Diabetes mellitus Drug abuse Dysphasia Fibrocystic disease of breast Gastroenteritis Glaucoma Headache disorder Hypercholesterolemia Hypertension Infertility Kidney disease Myocardial infarction Neoplasm Not obtainable due to adoption Osteoporosis Parkinson's disease Prostate cancer Psychosocial problem Respiratory disorder Severe allergy Thyroid disease Tuberculosis Visual disorder Physical Exam Vital Signs Capillary Refill : Height, Weight, BMI Height: 5'2.00" Weight: 132lbs. 8.0oz. [id number]; 24.2 BMI Method:Stated Progress/Results/Core Measures Results/Orders Lab Results Laboratory Tests Test 12/18/19 23:42 Range/Units Urine Color YELLOW Urine Clarity CLEAR Urine pH 6.0 5-9 Urine Specific [place] >=1.030 1.016-1.022 Urine Protein TRACE NEGATIVE Urine Glucose (UA) NEGATIVE NEGATIVE Urine Ketones NEGATIVE NEGATIVE Urine Nitrite NEGATIVE NEGATIVE Urine Bilirubin NEGATIVE NEGATIVE Urine Urobilinogen 0.2 < = 1.0 MG/DL Urine Leukocyte Esterase TRACE NEGATIVE Urine RBC (Auto) NEGATIVE NEGATIVE Urine RBC NONE /HPF Urine WBC 10-25 H /HPF Urine Squamous Epithelial Cells 10-25 H /HPF Urine Crystals NONE /LPF Urine Bacteria FEW H /HPF Urine Casts NONE /LPF Urine Mucus LARGE H /LPF Urine Culture Indicated NO My Orders Orders - PETE CHACKO DO Urine Bedside (12/18/19 23:34) Ua Culture If Indicated (12/18/19 23:34) Urine Culture (12/19/19 00:15) Ketorolac Injection (Toradol Injection) (12/19/19 00:30) Rx-Cyclobenzaprine Tablet (Rx-Flexeril T (12/19/19 00:22) Departure Impression Primary Impression: Chronic back pain Additional Impressions: Scoliosis UTI (urinary tract infection) Disposition: 01 HOME, SELF-CARE Condition: Stable Departure-Patient Inst. Referrals: [facility] (PCP/Family) Primary Care Physician Patient Instructions: MANAGING YOUR CHRONIC PAIN, Scoliosis (DC), Urinary Tract Infection, Adult (DC) Add. Discharge Instructions: LOTS OF CLEAR LIQUIDS TYLENOL NEEDED FOR PAIN MOIST HEAT TO SORE AREAS AT 20 MINUTE INTERVALS FOLLOW UP WITH [facility] IN 2-3 DAYS FOR FURTHER CARE KEEP YOUR APPOINTMENT WITH SPECIALIST IN DECEMBER All discharge instructions reviewed with patient and/or family. Voiced understanding. Scripts Methocarbamol (Methocarbamol) 500 Mg Tablet 500-1000 MG PO Q6-8HR for Back Pain, #15 TAB Prov: PETE CHACKO DO 12/19/19 Ketorolac Tromethamine (Ketorolac Tromethamine) 10 Mg Tablet 10 MG PO Q6H for Pain, #15 TAB Prov: PETE CHACKO DO 12/19/19 PETE CHACKO DO Dec 19, 2019 00:27
[2019-12-19] MEDS ORDERED: KETOROLAC 60 MG/2 ML VIAL IM ONE (00:30)
[2019-12-19 00:55] VITALS: BP 112/86
[2019-12-19 01:56] LABS: AMPHETAMINE SCREEN, URINE NEGATIVE (NEGATIVE); BARBITURATE SCREEN URINE NEGATIVE (NEGATIVE); BENZODIAZEPINES SCREEN URINE NEGATIVE (NEGATIVE); CANNABINOID SCREEN, URINE NEGATIVE (NEGATIVE); COCAINE SCREEN URINE NEGATIVE (NEGATIVE); METHADONE STAT NEGATIVE (NEGATIVE); METHAMPHETAMINE SCREEN URINE S NEGATIVE (NEGATIVE); OPIATE SCREEN URINE NEGATIVE (NEGATIVE); OXYCODONE STAT NEGATIVE (NEGATIVE); PROPOXYPHENE STAT NEGATIVE (NEGATIVE); TRICYCLIC ANTIDEPRESSANTS SCRE NEGATIVE (NEGATIVE)
== END 2019-12-19 00:55 | disposition home or self-care (01) ==
LOC: EDUNIT# 23:05 → ER 23:07
DX: M41.9 Scoliosis, unspecified (principal); G89.29 Other chronic pain; N39.0 Urinary tract infection, site not specified; F90.9 Attention-deficit hyperactivity disorder, unspecified type; F32.9 Major depressive disorder, single episode, unspecified; Z88.2 Allergy status to sulfonamides; Z77.22 Contact with and (suspected) exposure to environmental tobacco smoke (acute) (chronic); Z90.710 Acquired absence of both cervix and uterus
CPT/HCPCS: 80306; 81000; 84703; 87088; 99284

== ENCOUNTER → 2020-02-09 | Outpatient (CLI) | payer MEDICAID ==
[~2020-02-09] MED LIST changes: +KETO10TA PO; +METH500T7 PO
--- NOTE | 2020-02-09 17:05 | Diagnostic Imaging Report ---
PROCEDURE: MRI lumbar spine. TECHNIQUE: Multiplanar, multisequence MRI of the lumbar spine was performed without contrast. INDICATION: Back pain. COMPARISON: No prior studies are available for comparison. FINDINGS: There is right convexity lower thoracic scoliotic curvature with left convexity lumbar scoliotic curvature. Lordotic curvature appears to be within normal limits. Vertebral body heights are maintained. Marrow signal intensity is unremarkable. No definite vertebral body anomaly is seen. Fairly normal height and signal intensity to the lumbar intervertebral discs is noted. The conus is unremarkable at the L1 level. Central canal appears to be patent at all levels. No focal disc protrusion is seen. No neural foraminal stenosis is identified. Paraspinous tissues are unremarkable. IMPRESSION: Thoracolumbar scoliosis. No central canal or neural foraminal stenosis is detected. Dictated by: Dictated on workstation # [id number]
--- NOTE | 2020-02-09 17:58 | Diagnostic Imaging Report ---
Exam: MRI thoracic spine without contrast. Date: February 09, 2020. Indication: 29-year-old female, scoliosis, back pain. Comparison: Radiographs August 30, 2017. Findings: There is an upper thoracic levocurvature and a lower thoracic dextrocurvature. The anterior to posterior alignment of the thoracic spine is unremarkable. There is no evidence of a diffuse marrow infiltrating or replacing process. There is no identified focal concerning bone lesion. There is no compression deformity or other identified fracture. The thoracic disc heights are well preserved. There is no identified sizable thoracic disc protrusion or extrusion. There is no spinal stenosis at the thoracic spine levels. There is no identified abnormal cord signal. There is a gastric diverticulum. Impression: 1. No thoracic disc protrusion or extrusion. 2. No spinal stenosis at the thoracic spine levels. 3. No abnormal cord signal. 4. Upper thoracic levocurvature and lower thoracic dextrocurvature. 5. Gastric diverticulum. Dictated by: Dictated on workstation # [id number]
== END ==
LOC: RAD 15:22
DX: M41.24 Other idiopathic scoliosis, thoracic region (principal); K31.4 Gastric diverticulum
CPT/HCPCS: 72146; 72148

== ENCOUNTER 2021-08-07 15:00 | Outpatient (RCR) | payer MEDICAID ==
[~2021-08-07 15:00] MED LIST changes: +DOXY-311 PO; -DOXY100C42 PO; +METH-731 PO; -METH500T7 PO
== END 2021-08-15 | disposition home or self-care (01) ==
PROVIDERS: ATTEND Neurological Surgery
DX: M41.56 Other secondary scoliosis, lumbar region (principal); F32.9 Major depressive disorder, single episode, unspecified; F17.210 Nicotine dependence, cigarettes, uncomplicated

== ENCOUNTER 2021-09-25 08:10 | Outpatient (RCR) | payer MEDICAID | END 2021-09-25 09:43 | disposition home or self-care (01) | PROVIDERS: ATTEND Neurological Surgery | DX: M41.56 Other secondary scoliosis, lumbar region (principal); F17.210 Nicotine dependence, cigarettes, uncomplicated ==